=== PATIENT | male | born 1965 | race Caucasian/White ===

== ENCOUNTER → 2019-04-02 11:37 | Outpatient (CLI) | payer OTHER, SELFPAY ==
[2015-06-20 13:03] VITALS: BMI 40.2
[2019-04-02 14:05] LABS: Anion Gap 8 (5-15); BUN 14 mg/dL (7-18); BUN/Creat Ratio 14.2 RATIO (10-20); Calcium,Total 8.7 mg/dL (8.5-10.1); Chloride 106 mmol/L (98-107); Cholesterol 129 mg/dL (200); Creatinine, Serum 0.99 mg/dL (0.70-1.30); EST Glomerular Filtration Rate 84 mL/min (>60); Est Glom Filt Rate - Afr Amer 102 mL/min (>60); Glucose 87 mg/dL (74-106); High Density Lipoprotein 54 mg/dL; Potassium 4.4 mmol/L (3.5-5.1); Sodium Level 140 mmol/L (136-145); Triglycerides 54 mg/dL; Very Low Density Lipoprotein 11 mg/dL (5-40)
== END ==
PROVIDERS: Family Provider Family Medicine; PCP Family Medicine; Visit Provider Family Medicine
DX: I10 Essential (primary) hypertension (principal); E29.1 Testicular hypofunction
CPT/HCPCS: 36415; 80048; 80061; 84403

== ENCOUNTER → 2021-01-09 10:27 | Outpatient (CLI) | payer OTHER, SELFPAY ==
[2015-06-20 13:03] VITALS: BMI 40.2
[2021-01-09 12:45] LABS: Anion Gap 5 (5-15); BUN 16 mg/dL (7-18); BUN/Creat Ratio 15.8 RATIO (10-20); Calcium,Total 8.9 mg/dL (8.5-10.1); Chloride 105 mmol/L (98-107); Cholesterol 155 mg/dL (200); Creatinine, Serum 1.01 mg/dL (0.70-1.30); EST Glomerular Filtration Rate 82 mL/min (>60); Est Glom Filt Rate - Afr Amer 99 mL/min (>60); Glucose 100 mg/dL (74-106); High Density Lipoprotein 56 mg/dL; Potassium 4.3 mmol/L (3.5-5.1); Sodium Level 138 mmol/L (136-145); Triglycerides 76 mg/dL; Very Low Density Lipoprotein 15 mg/dL (5-40)
== END ==
PROVIDERS: PCP Family Medicine; Referring Provider Family Medicine; Visit Provider Family Medicine
DX: I10 Essential (primary) hypertension (principal)
CPT/HCPCS: 36415; 80048; 80061

== ENCOUNTER 2021-04-13 07:02 | Day surgery (SDC) | payer OTHER, SELFPAY ==
[2015-06-20 13:03] VITALS: BMI 40.2
[2021-04-13] VITALS (8 sets, daily range): BP systolic 121–148; BP diastolic 68–89; PULSE 74–86; RESP 16; TEMP 36.1–36.4; O2SAT 92–97; BMI 39.4
[2021-04-13] MEDS: Lactated Ringers 1,000 ML 100 ML IV (07:25)
--- NOTE | 2021-04-13 07:43 | HP.PCM_ITS ---
HPI - General HPI Narrative KODAK VELASQUEZ, is a 56 M who presents for a screening colonoscopy. Patient never had a previous colonoscopy. Patient denies any family history of colon cancer. Patient denies any chronic abdominal pain/nausea/vomiting/reflux. Patient has bowel moods daily denies any blood. [facility] Medical History (Updated 04/13/21 @ 07:[address] Eli Berger MD) History of kidney stones Hyperlipemia Hypertension Non-smoker Seasonal allergies Wears glasses Home Medications atenolol 50 mg PO QHS 08/25/13 [History Last Taken 08/24/13] atorvastatin 40 mg PO QHS 08/25/13 [History Last Taken 08/24/13] fluticasone propionate 2 spray NASAL DAILY 08/25/13 [History Last Taken 08/25/13] loratadine-pseudoephedrine [Claritin-D 24 Hr] 1 tab PO DAILY 08/25/13 [History Last Taken 08/25/13] xdbmozyr-frd-QB-lycopen-lutein [Centrum Silver Tablet] 1 ea PO DAILY 08/25/13 [History Last Taken 08/25/13] aspirin 325 mg PO DAILY 04/09/21 [History Last Taken Unknown] lisinopril 5 mg PO DAILY 04/09/21 [History Last Taken Unknown] Allergy/AdvReac Type Severity Reaction Status Date / Time No Known Allergies Allergy Verified 04/13/21 07:27 Surgical History (Updated 04/09/21 @ 09:24 by Herminia Kuhn) History of arthroscopy of knee History of cardiac catheterization History of myringotomy History of tonsillectomy and adenoidectomy Social History Smoking Status: Never smoker Past Medical/Surgical History Planned Operation Planned Operative Procedure/s: colonscopy Previous Hospitalizations/Surgeries HX Hospitalizations: No Any Problems With Anesthesia: No You/Your Family Experience Fever (Hyperthermia) With Anes: No Cholinesterase deficiency: No Cardiovascular Hx Hypertension: Yes Hx Cardiac Catheterization: Yes (2000) What facility was last heart cath performed: [facility] [place] Date of last Heart Cath: abt 2000 Respiratory Hx Chronic Obstructive Pulmonary Disease (COPD): No Hx Asthma: No Hx Emphysema: No Hx Sleep Apnea: No Hx Respiratory Tract Infection/Cold (presently): No Do You Snore Loudly (louder than talking or can be heard): No Do You Often Feel Tired/ Fatigued/ Sleepy Dring Daytime?: No Has Anyone Observed You Stop Breathing During Sleep?: No Result (for STOP score): Negative Smoking Status: Never smoker Neurological Does patient have nerve stimulator: No Allergies No Known Allergies Allergy (Verified 04/13/21 07:27) Discharge Is Pt Admitted From a Fdc, or a Half-Way: No Who Could Help: After D/C, Where Do you Plan to Go: Return Home Vital Signs Vital Signs Vital Signs: Weight Body Mass Index (BMI) 40.2 Physical Exam Const alert, oriented x3 and no apparent distress HEENT normocephalic and head/scalp atraumatic Resp normal respiratory effort Cardio regular rate GI soft to palpation and non-tender; Negative for non-distended Palpation: Negative for guarding Extremity no clubbing, cyanosis or edema Neuro CN's II-XII intact bilaterally Psych mental status grossly normal Assessment & Plan Assessment/Plan (1) Screening for colon cancer: Procedure Criteria Type of Procedure Procedure Type: Elective Elective Risks - COVID COVID Risk Discussion: The surgeon/proceduralist and patient have discussed in detail the risk of exposure to and/or potential harm posed by the COVID-19 virus with having a surgery/procedure at this time versus the risk of delaying the surgery/procedure. It is not possible to know either the risk of delaying the surgery or procedure or chance of getting an infection with perfect accuracy, but a joint decision was made between the patient and the surgeon/proceduralist to proceed at this time with the scheduled surgery/procedure as indicated on the consent form. Surgery Risks - Colonoscopy Risks Include but are not Limited To: Risks include but are not limited to: Bleeding, perforation requiring further surgery, inability to complete colonoscopy requiring barium enema.
--- NOTE | 2021-04-14 13:08 | OP.CCLET_ITS ---
04/14/2021 Wing Calderón MD [address] [place] [address] Re : Colonoscopy procedure for [facility] Dear Dr. Calderón This procedure was performed on Tuesday, April 13, 2021. My impressions and recommendations are as follows: Impressions : - Hemorrhoids found on perianal exam. - Diverticulosis in the sigmoid colon. - The examination was otherwise normal on direct and retroflexion views. - No specimens collected. Recommendations : - Discharge patient to home. - High fiber diet. - Continue present medications. - Repeat colonoscopy in 10 years for screening purposes. My findings are described in the full procedure note, which is enclosed. If I can be of further assistance, please feel free to contact me at Doctor phone number(s): , Work: . Sincerely, MD Eli Chapman MD 04/13/2021 8:42:22 AM This report has been signed electronically.
--- NOTE | 2021-04-14 13:08 | OP.COLON_ITS ---
Patient Name: Jm May Procedure Date: 04/13/2021 7:40 AM Date of : 1965 Age: 56 Procedure: Colonoscopy Indications: Screening for colorectal malignant neoplasm Providers: Eli Berger MD Medicines: Monitored Anesthesia Care Patient Profile: This is a 56 year old male. Last Colonoscopy: none. The patient's first colonoscopy is today. Complications: No immediate complications. Procedure: Pre-Anesthesia Assessment: - Prior to the procedure, a History and Physical was performed, and patient medications and allergies were reviewed. The patient's tolerance of previous anesthesia was also reviewed. The risks and benefits of the procedure and the sedation options and risks were discussed with the patient. All questions were answered, and informed consent was obtained. Prior Anticoagulants: The patient has taken no previous anticoagulant or antiplatelet agents. ASA Grade Assessment: Per anesthesia. After reviewing the risks and benefits, the patient was deemed in satisfactory condition to undergo the procedure. After I obtained informed consent, the scope was passed under direct vision. Throughout the procedure, the patient's blood pressure, pulse, and oxygen saturations were monitored continuously. The Colonoscope was introduced through the anus and advanced to the cecum, identified by the appendiceal orifice, ileocecal valve and palpation. The colonoscopy was performed without difficulty. The patient tolerated the procedure well. The quality of the bowel preparation was good. Scope In: 8:13:29 AM Scope Withdrawal Time 0 hours 12 minutes 52 seconds Scope Out: 8:33:52 AM Total Procedure Duration Time 0 hours 20 minutes 23 seconds Findings: Hemorrhoids were found on perianal exam. Multiple small-mouthed diverticula were found in the sigmoid colon. The exam was otherwise without abnormality on direct and retroflexion views. Impression: - Hemorrhoids found on perianal exam. - Diverticulosis in the sigmoid colon. - The examination was otherwise normal on direct and retroflexion views. - No specimens collected. Recommendation: - Discharge patient to home. - High fiber diet. - Continue present medications. - Repeat colonoscopy in 10 years for screening purposes. Procedure Code(s): --- Professional --- G0121, PT, Colorectal cancer screening; colonoscopy on individual not meeting criteria for high risk Diagnosis Code(s): --- Professional --- Z12.11, Encounter for screening for malignant neoplasm of colon K64.9, Unspecified hemorrhoids K57.30, Diverticulosis of large intestine without perforation or abscess without bleeding CPT copyright 2017 [employer]. All rights reserved. The codes documented in this report are preliminary and upon remote medical coder review may be revised to meet current compliance requirements. MD Eli Chapman MD 04/13/2021 8:42:22 AM This report has been signed electronically. Number of Addenda: 0 Note Initiated On: 04/13/2021 7:40 AM
== END 2021-04-13 09:37 | disposition home or self-care (01) ==
LOC: EN 07:06 → AC 07:08
PROVIDERS: PCP Family Medicine; Referring Provider Family Medicine; Visit Provider Surgery
PROC: 0DJD8ZZ Inspection of Lower Intestinal Tract, Via Natural or Artificial Opening Endoscopic (ICD-10-PCS; CPT 45378; principal; 2021-04-13 07:55)
DX: Z12.11 Encounter for screening for malignant neoplasm of colon (principal); K57.30 Diverticulosis of large intestine without perforation or abscess without bleeding; K64.9 Unspecified hemorrhoids; Z79.82 Long term (current) use of aspirin; Z87.442 Personal history of urinary calculi; E78.5 Hyperlipidemia, unspecified; I10 Essential (primary) hypertension
CPT/HCPCS: 45378; J7120; J2405

== ENCOUNTER 2021-12-17 16:32 | Outpatient (CLI) | payer OTHER, SELFPAY ==
--- NOTE | 2021-12-17 16:35 | RAD_ITS ---
STUDY: X-RAY CHEST REASON FOR EXAM: Male, 56 years old. ACUTE BRONCHITIS TECHNIQUE: PA and lateral views of the chest. COMPARISON: 08/06/2016 FINDINGS: The lungs are clear and expanded. There is no demonstrated pleural abnormality. Normal size heart. Normal mediastinum and kylee. Normal visualized pulmonary arteries. Normal visualized aortic arch and descending thoracic aorta. Normal visualized thoracic spine. Normal visualized ribs, clavicles, and shoulders. There is no demonstrated abnormality of the visualized soft tissue structures of the upper abdomen. RAD/Chest PA and Lateral IMPRESSION: No acute cardiopulmonary process. Electronically Signed: Oliverio Valente MD ([place]) at 7:40 EDT ,
== END 2021-12-17 23:59 | disposition home or self-care (01) ==
LOC: MTRAD 16:34
PROVIDERS: PCP Family Medicine; Referring Provider Family Medicine; Visit Provider Family Medicine
DX: J20.9 Acute bronchitis, unspecified (principal)
CPT/HCPCS: 71046

== ENCOUNTER → 2022-01-13 | Outpatient (CLI) | payer OTHER, SELFPAY ==
[2022-01-13 13:00] LABS: Anion Gap 4 (5-15); BUN 17 mg/dL (7-18); BUN/Creat Ratio 17.6 RATIO (10-20); Chloride 108 mmol/L (98-107); Cholesterol 151 mg/dL (200); Creatinine, Serum 0.97 mg/dL (0.70-1.30); EST Glomerular Filtration Rate 86 mL/min (>60); Est Glom Filt Rate - Afr Amer 104 mL/min (>60); Glucose 101 mg/dL (74-106); High Density Lipoprotein 51 mg/dL; PSA,Total - Annual Screen 0.54 ng/mL (0.00-4.00); Potassium 4.3 mmol/L (3.5-5.1); Sodium Level 139 mmol/L (136-145); Triglycerides 69 mg/dL; Very Low Density Lipoprotein 14 mg/dL (5-40)
[2022-01-13 13:20] LABS: Vitamin D,25 Hydroxy 31.4 ng/mL
== END | disposition home or self-care (01) ==
LOC: MFPLAB 10:36
PROVIDERS: PCP Family Medicine; Referring Provider Family Medicine; Visit Provider Family Medicine
DX: Z00.00 Encounter for general adult medical examination without abnormal findings (principal)
CPT/HCPCS: 36415; 80048; 80061; 82306; 84153; G0103

== ENCOUNTER → 2024-10-12 | Outpatient (CLI) | payer OTHER, SELFPAY ==
[2024-10-12 17:03] LABS: Anion Gap 7 (5-15); BUN 20 mg/dL (7-18); BUN/Creat Ratio 22.7 RATIO (10-20); Calcium,Total 9.3 mg/dL (8.5-10.1); Chloride 106 mmol/L (98-107); Cholesterol 131 mg/dL (200); Creatinine, Serum 0.88 mg/dL (0.70-1.30); EST Glomerular Filtration Rate 94 mL/min (>60); Est Glom Filt Rate - Afr Amer 114 mL/min (>60); Glucose 96 mg/dL (74-106); High Density Lipoprotein 51 mg/dL; PSA,Total - Annual Screen 0.43 ng/mL (0.00-4.00); Potassium 4.3 mmol/L (3.5-5.1); Sodium Level 139 mmol/L (136-145); Triglycerides 63 mg/dL; Very Low Density Lipoprotein 13 mg/dL (5-40)
== END | disposition home or self-care (01) ==
LOC: MFPLAB 11:50
PROVIDERS: PCP Family Medicine; Referring Provider Family Medicine; Visit Provider Family Medicine
DX: Z00.00 Encounter for general adult medical examination without abnormal findings (principal); Z12.5 Encounter for screening for malignant neoplasm of prostate; I10 Essential (primary) hypertension
CPT/HCPCS: 36415; 80048; 80061; 84153; G0103

== ENCOUNTER 2025-01-04 05:43 | Inpatient (IN) | payer OTHER, SELFPAY ==
[2025-01-04] VITALS (46 sets, daily range): BP systolic 72–154; BP diastolic 43–123; PULSE 71–124; RESP 16–43; TEMP -17.7–38.3; O2SAT 90–100; BMI 45.6; BMI 41.1
[2025-01-04] MEDS: Etomidate 20 MG/10 ML Vial IV (05:48)
[2025-01-04] MEDS: Rocuronium Bromide 50 MG/5 ML Vial 100 MG IV (05:48)
--- NOTE | 2025-01-04 05:52 | RAD_ITS ---
PROCEDURE: CHEST 1 VIEW (PORTABLE) 01/04/2025 REASON FOR EXAM: INTUBATION TECHNIQUE: Frontal view of the chest. COMPARISON: None available FINDINGS: Endotracheal tube 4 cm above the shanice. Nasogastric tube and side port crosses the diaphragm within the proximal stomach with tip directed into the fundus. Percutaneous pacing/defibrillator pad and overlapping wires. Bilateral gwfuv-tctywtv-uvbx-left patchy perihilar upper zone predominant ill-defined opacities may represent infiltrate or unusual pulmonary edema not excluded, clinically correlate. Suggestion of possible prominence of the main pulmonary artery. Cardiac silhouette appears within limits for size. RAD/Chest 1 View (Portable) IMPRESSION: Endotracheal tube 4 cm above the shanice. Nasogastric tube and side port crosses the diaphragm within the proximal stomac h with tip directed into the fundus. Percutaneous pacing/defibrillator pad and overlapping wires. Bilateral dqkcc-hdtrnjc-bgkt-left patchy perihilar upper zone predominant ill-d efined opacities may represent infiltrate or unusual pulmonary edema not excluded, clinically correlate. Reading Location: [id number]
--- NOTE | 2025-01-04 05:56 | CT_ITS ---
PROCEDURE: BRAIN/HEAD WITHOUT CONTRAST 01/04/2025 REASON FOR EXAM: S/P CARDIAC ARREST TECHNIQUE: Head CT without intravenous contrast. Coronal and Sagittal reconstruction series were provided. One or more dose reduction techniques were used (e.g., Automated exposure control, adjustment of the mA and/or kV according to patient size, use of iterative reconstruction technique. RADIATION DOSE SUMMARY: CTDlvol: 16 mGy DLP: 562 MGycm COMPARISON: None. FINDINGS: There is no intracranial hemorrhage, mass effect or midline shift. No abnormal extra-axial fluid collections are present. Chao-white matter differentiation remains although slightly less conspicuous the ventricles and sulci are somewhat diminutive in size. The calvarium is intact. Visualized paranasal sinuses are unremarkable. The mastoids are well aerated. CT/Brain/Head without Contrast IMPRESSION: As above. Cerebral edema to be ruled out clinically. MRI may be performed if clinically indicated. No acute intracranial hemorrhage, mass effect or midline shift. Reading Location: [id number]
--- NOTE | 2025-01-04 05:56 | CT_ITS ---
PROCEDURE: CTA CHEST W/WO CONTRAST 01/04/2025 REASON FOR EXAM: S/P CARDIAC ARREST TECHNIQUE: CTA axial imaging of the chest with intravenous contrast. Coronal and Sagittal reconstruction series were provided. 3D, 3D post processing, 3D reconstructions, Maximum intensity projection (MIPs) Volume rendering and Shaded surface rendering was provided. PATIENT PREPARATION: Per protocol CONTRAST: Yes VOLUME: 100 mL One or more dose reduction techniques were used (e.g., Automated exposure control, adjustment of the mA and/or kV according to patient size, use of iterative reconstruction technique). RADIATION DOSE SUMMARY: CTDlvol: 16 mGy DLP: 562 mGycm . COMPARISON: None. FINDINGS: Examination is limited due to motion and streak artifacts. Endotracheal tube and enteric tubes are present. There is no pleural or pericardial effusion. The heart is normal in size. The pulmonary arteries are normal in size and caliber. There is no evidence pulmonary arterial embolism. There is no mediastinal hematoma. There is no evidence of thoracic aortic dissection. Diffuse bilateral conglomerate alveolar opacities are present particularly within the posterior portions of the lungs. Differential diagnosis is below. There is no pneumothorax. Acute fracture seen within the right anterior 4th and 5th ribs best seen on image 133/265 and image 97/265. There are several enhancing nodules seen within the thyroid particularly on the left side. Correlate with ultrasound. CT/CTA Chest W/WO Contrast IMPRESSION: Large confluent alveolar opacities within the posterior portions of the lungs. Differential possibility release includes, but not limited to diffuse alveolar hemorrhage, large aspirations, large infectious or inflammatory process. Follow-up until resolution is recommended. No evidence of pulmonary embolism. No evidence of aortic dissection within the visualized portion of the chest. Right anterior 4th and 5th rib fractures presumably due to CPR. Correlate clin ically Bilateral thyroid nodules. Correlate with dedicated ultrasound. Other findings as above. Reading Location: [id number]
[2025-01-04] MEDS: Amiodarone 360 MG in Dextrose 5% Viaflo Bag 192.8 ML 33.3 MG CONT INF (06:11)
[2025-01-04] MEDS: Propofol 10MG/Ml 1,000 MG/100 ML Bottle 8.4 MG CONT INF (06:13)
[2025-01-04] MEDS: 0.9% Normal Saline (1000mL) 1,000 ML 1000 ML IV (06:14)
[2025-01-04 06:17] LABS: Absolute Lymphocyte Count 9.87 X10^3/uL (0.83-4.51); Absolute Neutrophil Count 3.3 X10^3/uL (2.0-7.7); Basophil# 0.15 X10^3/uL; Eosinophils% 2.7 % (0-5); Hematocrit 46.9 % (40-54); Hemoglobin 13.5 g/dL (13.0-16.5); Lymphocyte # 9.87 X10^3/ul (0.83-4.51); Lymphocyte % 66.5 % (19-41); Mean Corp Hgb Conc 28.8 g/dL (32-36); Mean Corpuscular Hgb 24.7 pg (27.0-32.0); Mean Corpuscular Volume 85.9 fL (80-94); Mean Platelet Vol. 10.7 fl (6.2-12.0); Monocyte# 0.96 X10^3/uL; Monocyte% 6.5 % (0-10); NRBC Flagged by Analyzer 0 % (0-5); Neutrophil # 3.26 X10^3/uL (2.7-7.7); Neutrophil % 21.9 % (47-70); POSITIVE DIFFERENTIAL YES; Platelet Count 335 K/mm3 (150-450); RBC Distribution Width CV 16.5 % (11.6-14.6); RBC Distribution Width SD 51.5 fl (35.1-43.9); Red Blood Count 5.46 M/mm3 (4.6-6.2); White Blood Count 14.9 K/mm3 (4.4-11.0)
[2025-01-04 06:18] LABS: Allen Test Positive; Base Excess -13 mmol/L (-2 to +2); Bicarbonate 17.8 mmol/L (22-26); Blood Gas Specimen Type ART; Mode AC; O2 Delivery Device Adult Vent; PEEP 10; PO2 83 mmHG (75-100); RR 16; SITE R Radial; SO2 89 % (95-99); Total Carbon Dioxide 20 mmol/L; pH 7.05 (7.35-7.45)
--- NOTE | 2025-01-04 06:31 | EX.ED.CRITCA ---
HPI History of Present Illness Chief Complaint: CPR Narrative Narrative: Chief complaint and HPI: V-fib status post ROSC. History taken by EMS, medical record, . 59-year-old male with past medical history of HTN, HLD, and obesity presents for evaluation of V-fib status post ROSC. Per EMS, found the patient unresponsive this morning and called 911. On EMS arrival, PD was performing CPR. Patient was found to be in ventricular fibrillation per EMS. He received 2 rounds of epinephrine, 300 mg amiodarone, and 5 defibrillation until ROSC was obtained. I gel was in place and patient was moving all extremities. On presentation, patient is on nonrebreather and moving extremities. Tachypneic, tachycardic, and hypertensive. Review of systems: See HPI Medications: As listed on the chart Allergies: As listed on the chart PFSH: Per chart Vital signs: As listed on the chart. Reviewed. Physical exam: Head: Normocephalic, atraumatic Eyes: Eyes closed, no sclera icterus, conjunctiva clear, PERRL ENT: Dry mucous membranes Neck: Trachea midline CV: Tachycardic, regular rhythm, no murmurs, no peripheral edema Resp: Lungs diminished in the bilateral bases, no wheezing, tachypneic, on nonrebreather GI: Obese, abd soft, non-distended, does not appear tender Musc: Moving all extremities, no deformity Skin: Warm, diaphoretic Neuro: Eyes closed, nonverbal, moving all extremities but not following commands [facility] Medical History Seasonal allergies Wears glasses History of kidney stones Hyperlipemia Non-smoker Hypertension Home Medications ?Medication ?Instructions ?Recorded ?Last Taken ?Type atenolol 50 mg tablet 50 mg PO QHS 08/25/13 08/24/13 History atorvastatin 40 mg tablet 20 mg PO QHS 08/25/13 08/24/13 History fluticasone propionate 50 2 spray DAILY 08/25/13 08/25/13 History mcg/actuation nasal spray,suspension loratadine-pseudoephedrine ER 10 1 tab PO DAILY 08/25/13 08/25/13 History mg-240 mg tablet,extended [id number] (Loratadine-D) [id number] acid 0.4 1 ea PO DAILY 08/25/13 08/25/13 History mg-lycopene 300 mcg-lutein 250 mcg tablet (Centrum Silver) aspirin 325 mg tablet 325 mg PO DAILY 04/09/21 Unknown History lisinopril 5 mg tablet 5 mg PO DAILY bp 04/09/21 Unknown History ondansetron HCl 4 mg tablet 4 mg PO TID 01/04/25 Unknown History Allergy/AdvReac Type Severity Reaction Status Date / Time No Known Allergies Allergy Verified 01/04/25 06:48 Surgical History History of cardiac catheterization History of myringotomy History of tonsillectomy and adenoidectomy History of arthroscopy of knee Social History Smoking Status: Never smoker EXAM Physical Exam Const Vital Signs: 01/04/25 05:44 01/04/25 05:50 01/04/25 06:11 Temperature 0 F L 96.2 F L Temperature Source Axillary Core Pulse Rate 124 H 98 109 H Respiratory Rate 37 H 16 43 H Respiratory Effort Respiratory Depth Respiratory Pattern Blood Pressure 137/123 H 143/101 H 151/99 H Blood Pressure Mean 127 115 116 Blood Pressure Source Monitor Blood Pressure Position Semi-Fowlers Blood Pressure Location Left Arm Pulse Ox 90 98 91 Oxygen Delivery Method Non-Rebreather Mechanical Ventilator Mechanical Ventilator 01/04/25 06:14 01/04/25 06:44 01/04/25 06:47 Temperature Temperature Source Pulse Rate 98 98 98 Respiratory Rate 16 16 16 Respiratory Effort Respiratory Depth Respiratory Pattern Normal Blood Pressure 149/107 H 143/101 H Blood Pressure Mean 121 115 Blood Pressure Source Blood Pressure Position Blood Pressure Location Pulse Ox 96 96 96 Oxygen Delivery Method Mechanical Ventilator Mechanical Ventilator 01/04/25 06:48 01/04/25 07:00 01/04/25 07:05 Temperature Temperature Source Pulse Rate 94 Respiratory Rate 16 Respiratory Effort Mechanically Ventilated Mechanically Ventilated Respiratory Depth Normal Respiratory Pattern Normal Normal Blood Pressure 143/101 H Blood Pressure Mean 115 Blood Pressure Source Blood Pressure Position Blood Pressure Location Pulse Ox 97 Oxygen Delivery Method Mechanical Ventilator Mechanical Ventilator 01/04/25 07:35 01/04/25 07:59 01/04/25 08:08 Temperature Temperature Source Pulse Rate 94 91 91 Respiratory Rate 19 H 16 17 Respiratory Effort Respiratory Depth Respiratory Pattern Normal Blood Pressure 129/91 H 119/92 H Blood Pressure Mean 103 101 Blood Pressure Source Blood Pressure Position Blood Pressure Location Pulse Ox 98 96 100 Oxygen Delivery Method Mechanical Ventilator MDM MDM MDM Narrative Medical decision making narrative: 59-year-old male with past medical history of HTN, HLD, and obesity presents for evaluation of V-fib status post ROSC. Per EMS, found the patient unresponsive this morning and called 911. Patient was found to be in ventricular fibrillation per EMS. He received 2 rounds of epinephrine, 300 mg amiodarone, and 5 defibrillation until ROSC was obtained. On presentation, patient is on nonrebreather and moving extremities but not following commands or opening eyes. Nonverbal.. Tachypneic, tachycardic, and hypertensive. Given respiratory status, mental status, and critical condition decision was to intubate the patient. Patient placed on ventilator with tidal volume 500, PEEP of 5, respiration 16, 100% oxygen. Patient's oxygen remained in the 80s until PEEP was increased to 10. EKG was immediately performed. EKG was personally reviewed interpreted by me, ED physician EKG shows sinus tachycardia. No ST elevation. No no acute ischemic changes. Heart rate 115. Not a STEMI. Differential diagnosis includes but is not limited to acute hypoxic respiratory failure, ventricular fibrillation, electrolyte abnormality, CODI, PE, ACS. Given that patient was found to be in ventricular fibrillation, patient was started on amiodarone drip. Extensive laboratory workup ordered including CT head and CTA chest. Hypothermic protocol will be started. Patient's shortly arrived. She states that the patient frequently snores. She states that she heard him snoring and gurgling. She states she had a multiple times in which she realized he was minimally responsive. She states she called 911 and was told to start CPR. She started in the bed and she could not move the patient. She states she felt that the patient was breathing the entire time. She denies any recent fever, chills, shortness of breath, chest pain, abdominal pain, nausea, vomiting, dysuria. Chest x-ray was personally reviewed and interpreted by me, ED physician. ET tube in correct placement. As well as NG tube. Bilateral infiltrates. ABG shows metabolic and respiratory acidosis. CBC with leukocytosis of 14.9. No anemia. Platelets unremarkable. INR unremarkable. BMP shows metabolic acidosis with a bicarb of 16.3 and anion gap of 22. Patient's glucose is 261. No history of diabetes. Will add on beta hydroxybutyrate. No CODI. Magnesium level elevated at 2.8. Mild transaminitis likely secondary to cardiac arrest. Troponin unremarkable. BNP unremarkable. CT head without any acute intracranial abnormality. CTA chest negative for PE and aortic dissection. Patient has right anterior 4th and 5th rib fractures. Bilateral thyroid nodules. Will need to be further worked up outpatient. Large confluent areolar opacities within the posterior portion of the lungs. Differential includes alveolar hemorrhage, large aspiration, inflammatory infectious process. Given this finding, blood cultures added. Vancomycin and Zosyn ordered. did not endorse any infectious type symptoms However will cover empirically. No pleural or pericardial effusions. At this point in time, no clear etiology for patient's cardiopulmonary arrest however suspect it is likely respiratory in nature. Cardiology was consulted and patient was discussed with Dr. Pierce. No further recommendations. COVID, flu, RSV negative. Lactic acid 7.1 this is multifactorial. However given concern for possible pneumonia or infectious etiology, patient will receive 30 cc/kg bolus. Will use ideal body weight given concern for overload which is about 70 kg. Patient already received 1 L fluid. Therefore will order another 1.5 L in total he will get 2.5 L. Beta-hydroxybutyrate negative. UA negative for UTI but positive for glucose. Repeat ABG on vent settings of respiratory rate 18, tidal volume 500, PEEP of 10, 100% oxygen shows improvement in acidosis. Patient will warrant admission to the ICU. I spoke with the hospitalist service who accepted admission. was updated of all the results and the plan. Endotracheal Intubation Indication: Respiratory distress Consent: Emergent Procedure: The patient was on a nuclear monitoring technician including continuous pulse oximetry. Rapid Sequence Intubation was conducted. The patient received 20 mg of Etomidate for induction and 100 mg of Rocuronium for adequate paralysis. Cricoid pressure was maintained from the time the induction agent was given to the time of cuff balloon inflation. Using a glide laryngoscope and a size 8 oh endotracheal tube with stylet, the patient was intubated on the first attempt. The stylet was removed, and the cuff balloon was inflated. Appropriate endotracheal tube position was confirmed by direct visualization of vocal cord passage, fogging of the tube, CO2 colorimetric indicator and symmetric breath sounds. The tube was secured at 22 cm at the lips. 45 minutes of critical care time utilized in managing the patient. This is due to high probability of and deterioration of the patient based on the patient's condition and excludes any separately billable procedures. Impression: 1. Cardiopulmonary arrest, status post ROSC 2. Reported ventricular fibrillation 3. Acute hypoxic and hypercapnic respiratory failure, status post intubation 4. Metabolic acidosis with lactic acidosis, multifactorial 5. Mild transaminitis 6. Hyperglycemia 7. Right anterior 4th and 5th rib fractures 8. Bilateral thyroid nodules, need further worked up 9. Bilateral areolar opacities, unclear etiology, concern for possible pneumonia/sepsis Lab Data Labs: Laboratory Results - last 24 hr 01/04/25 01/04/25 01/04/25 05:45 05:47 06:15 WBC 14.9 H RBC 5.46 Hgb 13.5 Hct 46.9 MCV 85.9 MCH 24.7 L MCHC 28.8 L RDW Std Deviation 51.5 H RDW Coeff of Nash 16.5 H Plt Count 335 MPV 10.7 Immature Gran % (Auto) 1.400 H Neut % (Auto) 21.9 L Lymph % (Auto) 66.5 H [place] % (Auto) 6.5 Eos % (Auto) 2.7 Baso % (Auto) 1.0 Absolute Neuts (auto) 3.3 Absolute Lymphs (auto) 9.87 H Nucleated RBC % 0 Diff Path Review January foll PT 15.1 H INR 1.2 APTT 28.4 Sodium 140 Potassium 3.7 Chloride 102 Carbon Dioxide 16.3 L Anion Gap 22 H BUN 22 H Creatinine 1.19 Estim Creat Clear Calc 95.34 Est GFR (MDRD) Non-Af 71 BUN/Creatinine Ratio 18.8 Glucose 261 H Lactic Acid 7.1 H* Calcium 8.9 Magnesium 2.8 H Total Bilirubin 0.27 Direct Bilirubin 0.12 AST 75 H ALT 81 H Alkaline Phosphatase 96 Total Creatine Kinase 250 H Troponin T High Sens 12 NT pro BNP II 100 Total Protein 6.7 Albumin 3.7 Globulin 3.0 Triglycerides 128 b-Hydroxybutyric mmol/L 0.1 Urine Color Urine Clarity Urine pH Ur Specific [place] U Specif Grav (Refrac) Urine Protein Urine Glucose (UA) Urine Ketones Urine Occult Blood Urine Nitrite Urine Bilirubin Urine Urobilinogen Ur Leukocyte Esterase Urine RBC Urine WBC Ur Squamous Epith Cells Urine Bacteria Urine Mucus 01/04/25 01/04/25 01/04/25 06:55 06:55 06:55 WBC RBC Hgb Hct MCV MCH MCHC RDW Std Deviation RDW Coeff of [place] Plt Count MPV Immature Gran % (Auto) Neut % (Auto) Lymph % (Auto) [place] % (Auto) Eos % (Auto) Baso % (Auto) Absolute Neuts (auto) Absolute Lymphs (auto) Nucleated RBC % Diff Path Review PT INR APTT Sodium Potassium Chloride Carbon Dioxide Anion Gap BUN Creatinine Estim Creat Clear Calc Est GFR (MDRD) Non-Af BUN/Creatinine Ratio Glucose Lactic Acid Calcium Magnesium Total Bilirubin Direct Bilirubin AST ALT Alkaline Phosphatase Total Creatine Kinase Troponin T High Sens NT pro BNP II Total Protein Albumin Globulin Triglycerides b-Hydroxybutyric mmol/L Urine Color Yellow Cancelled Urine Clarity Sl. Cloudy Cancelled Urine pH 7.0 Ur Specific [place] U Specif Grav (Refrac) Urine Protein Urine Glucose (UA) Urine Ketones Urine Occult Blood Urine Nitrite Urine Bilirubin Urine Urobilinogen Ur Leukocyte Esterase Urine RBC Urine WBC Ur Squamous Epith Cells Urine Bacteria Urine Mucus 01/04/25 01/04/25 01/04/25 06:55 06:55 06:55 WBC RBC Hgb Hct MCV MCH MCHC RDW Std Deviation RDW Coeff of [place] Plt Count MPV Immature Gran % (Auto) Neut % (Auto) Lymph % (Auto) [place] % (Auto) Eos % (Auto) Baso % (Auto) Absolute Neuts (auto) Absolute Lymphs (auto) Nucleated RBC % Diff Path Review PT INR APTT Sodium Potassium Chloride Carbon Dioxide Anion Gap BUN Creatinine Estim Creat Clear Calc Est GFR (MDRD) Non-Af BUN/Creatinine Ratio Glucose Lactic Acid Calcium Magnesium Total Bilirubin Direct Bilirubin AST ALT Alkaline Phosphatase Total Creatine Kinase Troponin T High Sens NT pro BNP II Total Protein Albumin Globulin Triglycerides b-Hydroxybutyric mmol/L Urine Color Urine Clarity Urine pH Cancelled Ur Specific [place] 1.010 Cancelled U Specif Grav (Refrac) Cancelled Urine Protein 500 H Cancelled Urine Glucose (UA) 250 H Urine Ketones Urine Occult Blood Urine Nitrite Urine Bilirubin Urine Urobilinogen Ur Leukocyte Esterase Urine RBC Urine WBC Ur Squamous Epith Cells Urine Bacteria Urine Mucus 01/04/25 01/04/25 01/04/25 06:55 06:55 06:55 WBC RBC Hgb Hct MCV MCH MCHC RDW Std Deviation RDW Coeff of [place] Plt Count MPV Immature Gran % (Auto) Neut % (Auto) Lymph % (Auto) [place] % (Auto) Eos % (Auto) Baso % (Auto) Absolute Neuts (auto) Absolute Lymphs (auto) Nucleated RBC % Diff Path Review PT INR APTT Sodium Potassium Chloride Carbon Dioxide Anion Gap BUN Creatinine Estim Creat Clear Calc Est GFR (MDRD) Non-Af BUN/Creatinine Ratio Glucose Lactic Acid Calcium Magnesium Total Bilirubin Direct Bilirubin AST ALT Alkaline Phosphatase Total Creatine Kinase Troponin T High Sens NT pro BNP II Total Protein Albumin Globulin Triglycerides b-Hydroxybutyric mmol/L Urine Color Urine Clarity Urine pH Ur Specific [place] U Specif Grav (Refrac) Urine Protein Urine Glucose (UA) Cancelled Urine Ketones Negative Cancelled Urine Occult Blood 150 H Cancelled Urine Nitrite Negative Urine Bilirubin Urine Urobilinogen Ur Leukocyte Esterase Urine RBC Urine WBC Ur Squamous Epith Cells Urine Bacteria Urine Mucus 01/04/25 01/04/25 01/04/25 06:55 06:55 06:55 WBC RBC Hgb Hct MCV MCH MCHC RDW Std Deviation RDW Coeff of [place] Plt Count MPV Immature Gran % (Auto) Neut % (Auto) Lymph % (Auto) [place] % (Auto) Eos % (Auto) Baso % (Auto) Absolute Neuts (auto) Absolute Lymphs (auto) Nucleated RBC % Diff Path Review PT INR APTT Sodium Potassium Chloride Carbon Dioxide Anion Gap BUN Creatinine Estim Creat Clear Calc Est GFR (MDRD) Non-Af BUN/Creatinine Ratio Glucose Lactic Acid Calcium Magnesium Total Bilirubin Direct Bilirubin AST ALT Alkaline Phosphatase Total Creatine Kinase Troponin T High Sens NT pro BNP II Total Protein Albumin Globulin Triglycerides b-Hydroxybutyric mmol/L Urine Color Urine Clarity Urine pH Ur Specific [place] U Specif Grav (Refrac) Urine Protein Urine Glucose (UA) Urine Ketones Urine Occult Blood Urine Nitrite Cancelled Urine Bilirubin Negative Cancelled Urine Urobilinogen Normal Cancelled Ur Leukocyte Esterase Negative Urine RBC Urine WBC Ur Squamous Epith Cells Urine Bacteria Urine Mucus 01/04/25 06:55 WBC RBC Hgb Hct MCV MCH MCHC RDW Std Deviation RDW Coeff of [place] Plt Count MPV Immature Gran % (Auto) Neut % (Auto) Lymph % (Auto) [place] % (Auto) Eos % (Auto) Baso % (Auto) Absolute Neuts (auto) Absolute Lymphs (auto) Nucleated RBC % Diff Path Review PT INR APTT Sodium Potassium Chloride Carbon Dioxide Anion Gap BUN Creatinine Estim Creat Clear Calc Est GFR (MDRD) Non-Af BUN/Creatinine Ratio Glucose Lactic Acid Calcium Magnesium Total Bilirubin Direct Bilirubin AST ALT Alkaline Phosphatase Total Creatine Kinase Troponin T High Sens NT pro BNP II Total Protein Albumin Globulin Triglycerides b-Hydroxybutyric mmol/L Urine Color Urine Clarity Urine pH Ur Specific [place] U Specif Grav (Refrac) Urine Protein Urine Glucose (UA) Urine Ketones Urine Occult Blood Urine Nitrite Urine Bilirubin Urine Urobilinogen Ur Leukocyte Esterase Cancelled Urine RBC 5-10 SEEN Urine WBC 0 SEEN Ur Squamous Epith Cells 0-5 SEEN Urine Bacteria 2+ Urine Mucus 0 SEEN ABG Data ABG results: ABG 01/04/25 01/04/25 06:13 08:00 Specimen Type ART ART Sample Site R Radial L Radial pH 7.05 L* 7.24 L Bicarbonate Actual 17.8 L 23.7 Total CO2 20 25 Base Excess -13 L -4 L O2 Saturation 89 L 98 O2 % 100.0 100.0 ABG pCO2 65.0 H 55.8 H ABG pO2 83 122 H Driss Test Positive Positive Respiration Rate 16 18 O2 Delivery Device Adult Vent Adult Vent Vent Mode AC Not entered Tidal Volume 500.0 500.0 POC PEEP 10 10 Crit Call To/Read Back Yes Blood Gas Notified Whom Blood Gas Notified Time 06:14:59 Radiography Diagnostic Testing: Clinical Impression(s) from Imaging Studies Chest X-Ray 01/04/25 05:52 IMPRESSION: Endotracheal tube 4 cm above the shanice. Nasogastric tube and side port crosses the diaphragm within the proximal stomach with tip directed into the fundus. Percutaneous pacing/defibrillator pad and overlapping wires. Bilateral [id number]-[id number]-left patchy perihilar upper zone predominant ill-defined opacities may represent infiltrate or unusual pulmonary edema not excluded, clinically correlate. Reading Location: [id number] Brain CT 01/04/25 05:56 IMPRESSION: As above. Cerebral edema to be ruled out clinically. MRI may be performed if clinically indicated. No acute intracranial hemorrhage, mass effect or midline shift. Reading Location: [id number] Chest CTA 01/04/25 05:56 IMPRESSION: Large confluent alveolar opacities within the posterior portions of the lungs. Differential possibility release includes, but not limited to diffuse alveolar hemorrhage, large aspirations, large infectious or inflammatory process. Follow-up until resolution is recommended. No evidence of pulmonary embolism. No evidence of aortic dissection within the visualized portion of the chest. Right anterior 4th and 5th rib fractures presumably due to CPR. Correlate clinically Bilateral thyroid nodules. Correlate with dedicated ultrasound. Other findings as above. Reading Location: [facility] Discharge Plan Triage Chief Complaint: CPR ED Provider: Rao Correa Dx/Rx/DC Orders Prescriptions: No Action atorvastatin 40 MG tablet 20 mg PO QHS Loratadine-D 1 TABLET tablet 1 tab PO DAILY fluticasone propionate 1 SPRAY spray,suspension 2 spray NASAL DAILY atenolol 50 MG tablet 50 mg PO QHS Centrum Silver 1 EACH tablet 1 ea PO DAILY aspirin 325 mg Tablet 325 mg PO DAILY lisinopril 5 mg tablet 5 mg PO DAILY ondansetron HCl 4 mg tablet 4 mg PO TID Primary Care Provider: Wing Calderón Referrals: Wing Calderón MD [Primary Care Provider] - Print Language: Egyptian
[2025-01-04 06:33] LABS: International Normalized Ratio 1.2; Prothrombin Time (Protime)PT. 15.1 SECONDS (11.7-14.9)
[2025-01-04 06:34] LABS: Partial Thromboplast Time 28.4 Seconds (24.1-36.2)
[2025-01-04 06:40] LABS: Differential Indicated SCAN CRITERIA MET
[2025-01-04 06:50] LABS: Pro- Brain NATRIURETIC PEPTIDE 100 pg/mL (<=900)
[2025-01-04 07:08] LABS: Mucous, Urine 0 SEEN /hpf (<or=2+); White Blood Cells 0 SEEN /hpf (0-5)
[2025-01-04 07:10] LABS: AST(SGOT) 75 U/L (<=37); Alanine Aminotransfer ALT/SGPT 81 U/L (<=46); Albumin, Serum 3.7 g/dL (3.5-5.0); Alkaline Phosphatase 96 U/L (40-129); Anion Gap 22 (5-15); BUN 22 mg/dL (4-19); BUN/Creat Ratio 18.8 RATIO (10-20); Bilirubin, Direct 0.12 mg/dL (0.00-0.30); Calcium,Total 8.9 mg/dL (7.6-11.0); Carbon Dioxide 16.3 mmol/L (21.0-32.0); Chloride 102 mmol/L (98-108); Creatinine, Serum 1.19 mg/dL (0.70-1.20); EST Glomerular Filtration Rate 71 (>60); Estimated Creatinine Clearance 95.34 ml/min (50-250); Glucose 261 mg/dL (70-99); Potassium 3.7 mmol/L (3.3-5.1); Protein, Total 6.7 g/dL (5.9-8.4); Sodium Level 140 mmol/L (133-145); Total Bilirubin 0.27 mg/dL (0.00-1.30)
[2025-01-04 07:29] LABS: Magnesium 2.8 mg/dL (1.5-2.2); Troponin T High Sensitivity 12 ng/L (<=22)
[2025-01-04 07:51] LABS: Lactic Acid 7.1 mmol/L (0.0-2.0)
[2025-01-04 08:00] LABS: CPK Total, Creatine Kinase 250 U/L (24-195); Triglycerides 128 mg/dL
[2025-01-04 08:01] LABS: Color, Urine Yellow (Yellow); Glucose, Dipstick 250 mg/dl (Normal); Ketone-Dipstick Negative (Negative); Leukocyte Esterase-Dipstick Negative /ul (Negative); Nitrite-Dipstick Negative (Negative); Occult Blood-Urine 150 /ul (Negative); Protein-Dipstick 500 mg/dl (Negative); Urine Bilirubin Dipstick Negative (Negative); Urine Clarity Sl. Cloudy (Clear); Urine Urobilinogen Normal (Normal)
[2025-01-04 08:03] LABS: Allen Test Positive; Base Excess -4 mmol/L (-2 to +2); Bicarbonate 23.7 mmol/L (22-26); Blood Gas Specimen Type ART; Mode Not entered; O2 Delivery Device Adult Vent; PEEP 10; PO2 122 mmHG (75-100); RR 18; SITE L Radial; SO2 98 % (95-99); Total Carbon Dioxide 25 mmol/L; pCO2 55.8 mmHg (35-45); pH 7.24 (7.35-7.45)
[2025-01-04] MEDS: Piperacil/Tazobactam 4.5 GM in 0.9% Normal Saline (100mL MB+) 100 ML IV (08:06)
[2025-01-04 08:10] LABS: Bacteria 2+ /hpf (None Seen); Red Blood Cells-Urine 5-10 SEEN /hpf (0-5); Squamous Epithelial Cells - UA 0-5 SEEN /hpf (0-5)
[2025-01-04 08:15] LABS: BETA-HYDROXYBUTYRATE 0.1 mmol/L (0.0-0.3)
[2025-01-04] MEDS: 0.9% Normal Saline (1000mL) 1,000 ML 999 ML IV ×2 (08:25→09:57)
[2025-01-04 08:43] LABS: Troponin T High Sens 2 HR 136 ng/L (<=22)
--- NOTE | 2025-01-04 09:33 | ECHOCS_ITS ---
Reason For Study Reason For Study: Arrhythmia Procedure This was a 2D Doppler, Color Flow transthoracic echocardiogram. The study was technically difficult. Patient scanned supine on vent. Exam performed portable in ICU/CCU. Left Ventricle Normal size and thickness. Severe LV systolic dysfunction with generalized hypokinesis. Estimated LVEF 20 to 25%. Stage I diastolic dysfunction. Cannot exclude LV noncompaction. Right Ventricle Normal RV size. Atria The left and right atria are normal. Mitral Valve Trivial mitral valve insufficiency. Tricuspid Valve Mild tricuspid valve insufficiency. Right ventricular systolic pressure estimated to be 37 mmHg. Aortic Valve Trisinus/trileaflet aortic valve. Pulmonic Valve The pulmonic valve is not well visualized. Great Vessels Normal sized aortic root. Pericardium/Pleural No pericardial effusion. Medication Diluted definity 1.5ml given slow IV push to enhance endocardial definition. MMode/2D Measurements & Calculations LVIDd: 5.0 cm IVSd: 0.87 cm Ao root diam: 3.4 cm LVIDs: 4.3 cm LVPWd: 1.1 cm RVDd: 3.6 cm FS: 14.0 % LAV(MOD-bp): 24.6 ml LVAd ap4: 35.8 cm2 LVAd ap2: 34.1 cm2 LAV(MOD-bp) Indexed: 9.9 ml/m2 LVLd ap4: 8.0 cm LVLd ap2: 8.0 cm LAV(MOD-sp2): 19.4 ml EDV(MOD-sp4): 133.9 ml EDV(MOD-sp2): 116.9 ml LAV(MOD-sp4): 25.1 ml EDV(sp4-el): 136.2 ml EDV(sp2-el): 123.4 ml LVAs ap4: 28.7 cm2 LVAs ap2: 26.7 cm2 LVLs ap4: 7.3 cm LVLs ap2: 7.2 cm ESV(MOD-sp4): 92.8 ml ESV(MOD-sp2): 80.3 ml ESV(sp4-el): 96.1 ml ESV(sp2-el): 84.4 ml EF(MOD-sp4): 30.7 % EF(MOD-sp2): 31.3 % EF(sp4-el): 29.4 % SV(MOD-sp4): 41.1 ml SV(MOD-sp2): 36.5 ml SV(sp4-el): 40.0 ml SI(MOD-sp4): 16.6 ml/m2 SI(MOD-sp2): 14.7 ml/m2 LA A4 area: 11.9 cm2 LA dimension(2D): 3.0 cm RA A4 area: 13.7 cm2 Doppler Measurements & Calculations MV E max [place]: 28.5 cm/sec Lat Peak E' [place]: 5.6 cm/sec Med Peak E' [place]: 4.5 cm/sec MV A max [place]: 47.5 cm/sec E/E' lat: 5.1 E/E' med: 6.3 MV E/A: 0.60 PA V2 max: 84.5 cm/sec TR max [place]: 282.7 cm/sec TR max P.0 mmHg ECHO/Echo Complete W/ Contrast Interpretation Summary Severe LV systolic dysfunction with generalized hypokinesis. Estimated LVEF 20 to 25%. Stage I diastolic dysfunction. Cannot exclude LV noncompaction. Mild tricuspid valve insufficiency. Abnormal hepatic architecture. Consider ultrasound of the liver for further moses luation. The study was technically difficult. Ordering Physician: Torey Malhotra Referring Physician: Wing Calderón Performed By: Gosia Bland RDCS
[2025-01-04 09:52] LABS: Reflex Lactate? Y
[2025-01-04] MEDS: fentaNYL drip 100 ML 5 MCG CONT INF (10:07)
[2025-01-04] MEDS: 0.9% Normal Saline (1000mL) 1,000 ML 100 ML IV ×2 (10:44→21:03)
--- NOTE | 2025-01-04 10:44 | EX.PCM.CONCC ---
Assessment & Plan Assessment/Plan (1) Acute respiratory failure with hypoxia and hypercapnia: (2) Cardiac arrest with ventricular fibrillation: PLAN: Plan RECOMMENDATIONS: 1. Continue assist-control mode mechanical ventilation. Wean FiO2 and PEEP as tolerated. 2. Continue empiric antibiotics, while awaiting culture workup. 3. Propofol and fentanyl for sedation. 4. Continue appropriate ICU prophylaxis. 5. Echocardiogram is pending. 6. Cardiology following with tentative plans for catheterization today. IMPRESSIONS: 1. Acute combined respiratory failure status post V-fib cardiac arrest The patient presented to the hospital after being found unresponsive by his earlier this morning and was noted to be in V-fib cardiac arrest by EMS. ACLS was initiated with ROSC ultimately achieved. The patient, at the present time, is clinically stable. He will be continued on propofol and fentanyl, pending further evaluation by cardiology. Echocardiogram is pending. There are tentative plans to proceed with cardiac catheterization today. Once cardiac workup is complete, recommend initiating paired daily spontaneous awakening and breathing trials, to better assess underlying neurologic status. Appropriate ICU prophylaxis will be continued. If the patient remains ventilated over the weekend, tube feeding for nutritional support can be initiated. 2. History of hypertension/hyperlipidemia/obesity Complicates care, management, recovery and prognosis. Continue supportive measures as noted above. The patient has never previously been diagnosed with obstructive sleep apnea, according to his . TIME: 35 minutes of critical care time, independent of procedures, was spent addressing the patient's acute combined respiratory failure status post V-fib cardiac arrest, review of all data and collaboration with the care team. HPI Consult Data Date of Consult: 01/04/25 HPI Narrative Reason for Consultation: Acute respiratory failure status postcardiac arrest HPI Narrative: The patient is a 59-year-old male, with a history as outlined below, who presented to the emergency department via EMS on the morning of January 04 after being found unresponsive by his . The patient's indicated that she awoke this morning around 0500 hrs. and noted that the patient had agonal type respirations and was subsequently found to be unresponsive. After contacting 911, she did initiate CPR. On EMS arrival, the patient was noted to be in ventricular fibrillation. ACLS was initiated with epinephrine, amiodarone and 5 attempted defibrillation prior to ROSC. The patient is a non-smoker, according to his . He has never been evaluated for obstructive sleep apnea in the past. 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 She reported that he has a strong family history of cardiac disease. On presentation to the emergency department, an endotracheal tube was placed by the ED provider. The patient was noted to be afebrile and hemodynamically stable. Laboratory evaluation revealed a white blood cell count of 15,000. Initial arterial blood gas was notable for a pH of 7.05 with a pCO2 of 65 and PO2 of 83. Lactate was elevated at 7.1. Troponin was increased at 136. CT head revealed no acute intracranial findings. CTA chest showed no evidence for pulmonary embolism but did reveal dependent posterior alveolar opacities. Right 4th and 5th rib fractures were incidentally noted. The patient was ultimately placed on antimicrobials along with fentanyl and propofol for sedation. He was admitted to the medical intensive care unit for further management. [facility] Medical History (Updated 01/04/25 @ 11:[address] Shad Pierce MD) Seasonal allergies Wears glasses History of kidney stones Hyperlipemia Non-smoker Hypertension Home Medications ?Medication ?Instructions ?Recorded ?Last Taken ?Type atenolol 50 mg tablet 50 mg PO QHS 08/25/13 08/24/13 History atorvastatin 40 mg tablet 20 mg PO QHS 08/25/13 08/24/13 History fluticasone propionate 50 2 spray DAILY 08/25/13 08/25/13 History mcg/actuation nasal spray,suspension loratadine-pseudoephedrine ER 10 1 tab PO DAILY 08/25/13 08/25/13 History mg-240 mg tablet,extended bphbyfq27te (Loratadine-D) dtfgtbus-tbr-qsaxl acid 0.4 1 ea PO DAILY 08/25/13 08/25/13 History mg-lycopene 300 mcg-lutein 250 mcg tablet (Centrum Silver) aspirin 325 mg tablet 325 mg PO DAILY 04/09/21 Unknown History lisinopril 5 mg tablet 5 mg PO DAILY bp 04/09/21 Unknown History ondansetron HCl 4 mg tablet 4 mg PO TID 01/04/25 Unknown History Allergy/AdvReac Type Severity Reaction Status Date / Time No Known Allergies Allergy Verified 01/04/25 06:48 Surgical History History of cardiac catheterization History of myringotomy History of tonsillectomy and adenoidectomy History of arthroscopy of knee Social History Smoking Status: Never smoker ROS Review of Systems ROS Unobtainable: due to endotracheal tube and due to mental status Physical Exam Const Constitutional Narrative: Intubated, sedated and mechanically ventilated. No ventilator dyssynchrony noted. Obese. General Appearance: patient mechanically ventilated HEENT normocephalic and head/scalp atraumatic Mouth: endotracheal tube in place and OG tube in place Eyes EOMs intact bilaterally, conjunctivae normal and no scleral icterus Neck supple General: trachea midline Chest inspection of chest normal Resp Auscultation: diminished lung sounds; Negative for rales, rhonchi or wheezes Cardio regular rate and regular rhythm GI normal to inspection, nondistended, normoactive bowel sounds Extremity no clubbing, cyanosis or edema Skin no rashes or lesions noted Neuro Sensorium / Orientation: sedated on vent Lab / Micro Data 01/04/25 05:47 01/04/25 05:47 Labs: Laboratory Results - last 24 hr 01/04/25 05:45: Total Creatine Kinase 250 H, Triglycerides 128 01/04/25 05:47: WBC 14.9 H, RBC 5.46, Hgb 13.5, Hct 46.9, MCV 85.9, MCH 24.7 L, MCHC 28.8 L, RDW Std Deviation 51.5 H, RDW Coeff of Nash 16.5 H, Plt Count 335, MPV 10.7, Immature Gran % (Auto) 1.400 H, Neut % (Auto) 21.9 L, Lymph % (Auto) 66.5 H, [place] % (Auto) 6.5, Eos % (Auto) 2.7, Baso % (Auto) 1.0, Absolute Neuts (auto) 3.3, Absolute Lymphs (auto) 9.87 H, Nucleated RBC % 0, Diff Path Review January, PT 15.1 H, INR 1.2, APTT 28.4, Sodium 140, Potassium 3.7, Chloride 102, Carbon Dioxide 16.3 L, Anion Gap 22 H, BUN 22 H, Creatinine 1.19, Estim Creat Clear Calc 95.34, Est GFR (MDRD) Non-Af 71, BUN/Creatinine Ratio 18.8, Glucose 261 H, Calcium 8.9, Magnesium 2.8 H, Total Bilirubin 0.27, Direct Bilirubin 0.12, AST 75 H, ALT 81 H, Alkaline Phosphatase 96, Troponin T High Sens 12, NT pro BNP II 100, Total Protein 6.7, Albumin 3.7, Globulin 3.0, b-Hydroxybutyric mmol/L 0.1 01/04/25 06:15: Lactic Acid 7.1 H* 01/04/25 06:55: Urine Color Yellow 01/04/25 06:55: Urine Color Cancelled, Urine Clarity Sl. Cloudy 01/04/25 06:55: Urine Clarity Cancelled, Urine pH 7.0 01/04/25 06:55: Urine pH Cancelled, Ur Specific [place] 1.010 01/04/25 06:55: Ur Specific [place] Cancelled, U Specif Grav (Refrac) Cancelled, Urine Protein 500 H 01/04/25 06:55: Urine Protein Cancelled, Urine Glucose (UA) 250 H 01/04/25 06:55: Urine Glucose (UA) Cancelled, Urine Ketones Negative 01/04/25 06:55: Urine Ketones Cancelled, Urine Occult Blood 150 H 01/04/25 06:55: Urine Occult Blood Cancelled, Urine Nitrite Negative 01/04/25 06:55: Urine Nitrite Cancelled, Urine Bilirubin Negative 01/04/25 06:55: Urine Bilirubin Cancelled, Urine Urobilinogen Normal 01/04/25 06:55: Urine Urobilinogen Cancelled, Ur Leukocyte Esterase Negative 01/04/25 06:55: Ur Leukocyte Esterase Cancelled, Urine RBC 5-10 SEEN, Urine WBC 0 SEEN, Ur Squamous Epith Cells 0-5 SEEN, Urine Bacteria 2+, Urine Mucus 0 SEEN 01/04/25 07:50: Troponin T Hi Sens 2 Hr 136 H* Micro: Microbiology 01/04/25 06:03 Mucosa - Nose SARS-CoV-2, Influenza & RSV (PCR) - Final ABG Data ABG results: ABG 01/04/25 01/04/25 06:13 08:00 Specimen Type ART ART Sample Site R Radial L Radial pH 7.05 L* 7.24 L Bicarbonate Actual 17.8 L 23.7 Total CO2 20 25 Base Excess -13 L -4 L O2 Saturation 89 L 98 O2 % 100.0 100.0 ABG pCO2 65.0 H 55.8 H ABG pO2 83 122 H Driss Test Positive Positive Respiration Rate 16 18 O2 Delivery Device Adult Vent Adult Vent Vent Mode AC Not entered Tidal Volume 500.0 500.0 POC PEEP 10 10 Crit Call To/Read Back Yes Blood Gas Notified Whom Blood Gas Notified Time 06:14:59 Imaging Radiology Impression Chest X-Ray 01/04/25 05:52 IMPRESSION: Endotracheal tube 4 cm above the shanice. Nasogastric tube and side port crosses the diaphragm within the proximal stomach with tip directed into the fundus. Percutaneous pacing/defibrillator pad and overlapping wires. Bilateral nmytp-cxgzifc-jbab-left patchy perihilar upper zone predominant ill-defined opacities may represent infiltrate or unusual pulmonary edema not excluded, clinically correlate. Reading Location: [id number] Brain CT 01/04/25 05:56 IMPRESSION: As above. Cerebral edema to be ruled out clinically. MRI may be performed if clinically indicated. No acute intracranial hemorrhage, mass effect or midline shift. Reading Location: [id number] Chest CTA 01/04/25 05:56 IMPRESSION: Large confluent alveolar opacities within the posterior portions of the lungs. Differential possibility release includes, but not limited to diffuse alveolar hemorrhage, large aspirations, large infectious or inflammatory process. Follow-up until resolution is recommended. No evidence of pulmonary embolism. No evidence of aortic dissection within the visualized portion of the chest. Right anterior 4th and 5th rib fractures presumably due to CPR. Correlate clinically Bilateral thyroid nodules. Correlate with dedicated ultrasound. Other findings as above. Reading Location: [id number] Charges/Coding Procedures Hospitalists Procedures: 18109 Critical Care 1st Hr
[2025-01-04] MEDS: Pantoprazole Sodium 40 MG in 0.9% Normal Saline (100mL MB+) 100 ML 330 MG IV ×2 (11:00→20:59)
[2025-01-04] MEDS: Enoxaparin 40 MG/0.4 ML Syringe SC (11:02)
--- NOTE | 2025-01-04 11:30 | PCM.CONS.C ---
Assessment & Plan Assessment/Plan (1) Cardiac arrest with ventricular fibrillation: PLAN: V-fib as per EMS. Defibrillated. Discussed with patient's in detail. Recommend coronary angiography with possible revascularization if indicated. Risks benefits explained. She understands and wishes to proceed. (2) Left ventricular systolic dysfunction (LVSD): PLAN: Status post V-fib arrest. Continue to monitor. Cannot exclude LV noncompaction on echocardiogram. Will need evaluation with a cardiac MRI if he has recovery from the current event. (3) Aspiration pneumonia: PLAN: As per critical care. (4) Acute respiratory failure with hypoxia and hypercapnia: PLAN: On ventilator. HPI Consult Data Date of Consult: 01/04/25 HPI Narrative Reason for Consultation: Rki-ny-fsoanxux cardiac arrest HPI Narrative: 59-year-old gentleman with past medical history significant for hypertension, dyslipidemia and coronary artery disease. His woke up this morning to him grunting. She found him unresponsive. EMS was called who arrived the scene within 10 minutes to find him in ventricular fibrillation. CPR was started. He was defibrillated around 5 times. ROSC was obtained. Presently he is intubated and sedated on ventilator. Per patient's , the patient has had coronary angiography done more than 15 years ago. It found nonobstructive CAD for which she was being medically managed. [facility] Medical History (Updated 01/04/25 @ 11:[address] Shad Pierce MD) Seasonal allergies Wears glasses History of kidney stones Hyperlipemia Non-smoker Hypertension Home Medications ?Medication ?Instructions ?Recorded ?Last Taken ?Type atenolol 50 mg tablet 50 mg PO QHS 08/25/13 08/24/13 History atorvastatin 40 mg tablet 20 mg PO QHS 08/25/13 08/24/13 History fluticasone propionate 50 2 spray DAILY 08/25/13 08/25/13 History mcg/actuation nasal spray,suspension loratadine-pseudoephedrine ER 10 1 tab PO DAILY 08/25/13 08/25/13 History mg-240 mg tablet,extended [id number] (Loratadine-D) htqwhwhn-pvy-bdbax acid 0.4 1 ea PO DAILY 08/25/13 08/25/13 History mg-lycopene 300 mcg-lutein 250 mcg tablet (Centrum Silver) aspirin 325 mg tablet 325 mg PO DAILY 04/09/21 Unknown History lisinopril 5 mg tablet 5 mg PO DAILY bp 04/09/21 Unknown History ondansetron HCl 4 mg tablet 4 mg PO TID 01/04/25 Unknown History Allergy/AdvReac Type Severity Reaction Status Date / Time No Known Allergies Allergy Verified 01/04/25 06:48 Surgical History History of cardiac catheterization History of myringotomy History of tonsillectomy and adenoidectomy History of arthroscopy of knee Social History Smoking Status: Never smoker Physical Exam Narrative Sedated on ventilator. Pupils are dilated but reactive to light. Heart sounds 1 and 2 noted. Chest with decreased breath sounds bilaterally. No ankle edema is noted. Risk Stratification Risk Stratification Applicable: No Objective Data Vital Signs: Vital Signs Temp Pulse Resp BP Pulse Ox O2 Del Method 96.2 F L 89 16 140/98 H 98 Mechanical Ventilator 01/04/25 05:50 01/04/25 08:30 01/04/25 08:30 01/04/25 09:00 01/04/25 08:30 01/04/25 08:30 Oxygen Delivery Method Mechanical Ventilator Weight: 278 lb Body Mass Index (BMI) 41.1 Intake & Output: Intake and Output for Last 24 Hours 01/02/25 01/03/25 01/04/25 23:59 23:59 23:59 Intake Total 3261.14 / 3261.14 Balance 3261.14 / 3261.14 Lab / Micro Data 01/04/25 05:47 01/04/25 05:47 Labs: Laboratory Results - last 24 hr 01/04/25 05:45: Total Creatine Kinase 250 H, Triglycerides 128 01/04/25 05:47: WBC 14.9 H, RBC 5.46, Hgb 13.5, Hct 46.9, MCV 85.9, MCH 24.7 L, MCHC 28.8 L, RDW Std Deviation 51.5 H, RDW Coeff of Nash 16.5 H, Plt Count 335, MPV 10.7, Immature Gran % (Auto) 1.400 H, Neut % (Auto) 21.9 L, Lymph % (Auto) 66.5 H, [place] % (Auto) 6.5, Eos % (Auto) 2.7, Baso % (Auto) 1.0, Absolute Neuts (auto) 3.3, Absolute Lymphs (auto) 9.87 H, Nucleated RBC % 0, Diff Path Review January, PT 15.1 H, INR 1.2, APTT 28.4, Sodium 140, Potassium 3.7, Chloride 102, Carbon Dioxide 16.3 L, Anion Gap 22 H, BUN 22 H, Creatinine 1.19, Estim Creat Clear Calc 95.34, Est GFR (MDRD) Non-Af 71, BUN/Creatinine Ratio 18.8, Glucose 261 H, Calcium 8.9, Magnesium 2.8 H, Total Bilirubin 0.27, Direct Bilirubin 0.12, AST 75 H, ALT 81 H, Alkaline Phosphatase 96, Troponin T High Sens 12, NT pro BNP II 100, Total Protein 6.7, Albumin 3.7, Globulin 3.0, b-Hydroxybutyric mmol/L 0.1 01/04/25 06:15: Lactic Acid 7.1 H* 01/04/25 06:55: Urine Color Yellow 01/04/25 06:55: Urine Color Cancelled, Urine Clarity Sl. Cloudy 01/04/25 06:55: Urine Clarity Cancelled, Urine pH 7.0 01/04/25 06:55: Urine pH Cancelled, Ur Specific [place] 1.010 01/04/25 06:55: Ur Specific [place] Cancelled, U Specif Grav (Refrac) Cancelled, Urine Protein 500 H 01/04/25 06:55: Urine Protein Cancelled, Urine Glucose (UA) 250 H 01/04/25 06:55: Urine Glucose (UA) Cancelled, Urine Ketones Negative 01/04/25 06:55: Urine Ketones Cancelled, Urine Occult Blood 150 H 01/04/25 06:55: Urine Occult Blood Cancelled, Urine Nitrite Negative 01/04/25 06:55: Urine Nitrite Cancelled, Urine Bilirubin Negative 01/04/25 06:55: Urine Bilirubin Cancelled, Urine Urobilinogen Normal 01/04/25 06:55: Urine Urobilinogen Cancelled, Ur Leukocyte Esterase Negative 01/04/25 06:55: Ur Leukocyte Esterase Cancelled, Urine RBC 5-10 SEEN, Urine WBC 0 SEEN, Ur Squamous Epith Cells 0-5 SEEN, Urine Bacteria 2+, Urine Mucus 0 SEEN 01/04/25 07:50: Troponin T Hi Sens 2 Hr 136 H* Micro: Microbiology 01/04/25 06:03 Mucosa - Nose SARS-CoV-2, Influenza & RSV (PCR) - Final ABG Data ABG results: ABG 01/04/25 01/04/25 06:13 08:00 Specimen Type ART ART Sample Site R Radial L Radial pH 7.05 L* 7.24 L Bicarbonate Actual 17.8 L 23.7 Total CO2 20 25 Base Excess -13 L -4 L O2 Saturation 89 L 98 O2 % 100.0 100.0 ABG pCO2 65.0 H 55.8 H ABG pO2 83 122 H Driss Test Positive Positive Respiration Rate 16 18 O2 Delivery Device Adult Vent Adult Vent Vent Mode AC Not entered Tidal Volume 500.0 500.0 POC PEEP 10 10 Crit Call To/Read Back Yes Blood Gas Notified Whom Blood Gas Notified Time 06:14:59 Cardiology Labs/Tests 01/04/25 05:45: Triglycerides 128 01/04/25 05:47: WBC 14.9 H, RBC 5.46, Hgb 13.5, Hct 46.9, MCV 85.9, MCH 24.7 L, MCHC 28.8 L, Plt Count 335, MPV 10.7, Immature Gran % (Auto) 1.400 H, Neut % (Auto) 21.9 L, Lymph % (Auto) 66.5 H, [place] % (Auto) 6.5, Eos % (Auto) 2.7, Baso % (Auto) 1.0, Absolute Neuts (auto) 3.3, Nucleated RBC % 0, PT 15.1 H, INR 1.2, APTT 28.4, Sodium 140, Potassium 3.7, Chloride 102, Carbon Dioxide 16.3 L, Anion Gap 22 H, BUN 22 H, Creatinine 1.19, Est GFR (MDRD) Non-Af 71, BUN/Creatinine Ratio 18.8, Glucose 261 H, Calcium 8.9, Magnesium 2.8 H, Total Bilirubin 0.27, Direct Bilirubin 0.12 01/04/25 06:13: pH 7.05 L*, Bicarbonate Actual 17.8 L, Base Excess -13 L, O2 Saturation 89 L, ABG pCO2 65.0 H, ABG pO2 83, Driss Test Positive 01/04/25 06:15: Lactic Acid 7.1 H* 01/04/25 06:55: Urine Color Yellow 01/04/25 06:55: Urine Color Cancelled, Urine Clarity Sl. Cloudy 01/04/25 06:55: Urine Clarity Cancelled, Urine pH 7.0 01/04/25 06:55: Urine pH Cancelled, Ur Specific [place] 1.010 01/04/25 06:55: Ur Specific [place] Cancelled, U Specif Grav (Refrac) Cancelled, Urine Protein 500 H 01/04/25 06:55: Urine Protein Cancelled, Urine Glucose (UA) 250 H 01/04/25 06:55: Urine Glucose (UA) Cancelled, Urine Ketones Negative 01/04/25 06:55: Urine Ketones Cancelled, Urine Occult Blood 150 H 01/04/25 06:55: Urine Occult Blood Cancelled, Urine Nitrite Negative 01/04/25 06:55: Urine Nitrite Cancelled, Urine Bilirubin Negative 01/04/25 06:55: Urine Bilirubin Cancelled, Urine Urobilinogen Normal 01/04/25 06:55: Urine Urobilinogen Cancelled, Ur Leukocyte Esterase Negative 01/04/25 06:55: Ur Leukocyte Esterase Cancelled, Urine RBC 5-10 SEEN, Urine WBC 0 SEEN 01/04/25 08:00: pH 7.24 L, Bicarbonate Actual 23.7, Base Excess -4 L, O2 Saturation 98, ABG pCO2 55.8 H, ABG pO2 122 H, Driss Test Positive Rhythm: EKG: ECHO: Stress Test: Cardiac Cath: PCI: CT Surgery: Holter monitor: EPS: PPM: CXR: Chest CT Scan: Radiography Diagnostic Testing: Radiology Impression Chest X-Ray 01/04/25 05:52 IMPRESSION: Endotracheal tube 4 cm above the shanice. Nasogastric tube and side port crosses the diaphragm within the proximal stomach with tip directed into the fundus. Percutaneous pacing/defibrillator pad and overlapping wires. Bilateral xblsb-tjpwdzf-xgem-left patchy perihilar upper zone predominant ill-defined opacities may represent infiltrate or unusual pulmonary edema not excluded, clinically correlate. Reading Location: [facility] Brain CT 01/04/25 05:56 IMPRESSION: As above. Cerebral edema to be ruled out clinically. MRI may be performed if clinically indicated. No acute intracranial hemorrhage, mass effect or midline shift. Reading Location: [id number] Chest CTA 01/04/25 05:56 IMPRESSION: Large confluent alveolar opacities within the posterior portions of the lungs. Differential possibility release includes, but not limited to diffuse alveolar hemorrhage, large aspirations, large infectious or inflammatory process. Follow-up until resolution is recommended. No evidence of pulmonary embolism. No evidence of aortic dissection within the visualized portion of the chest. Right anterior 4th and 5th rib fractures presumably due to CPR. Correlate clinically Bilateral thyroid nodules. Correlate with dedicated ultrasound. Other findings as above. Reading Location: [id number] Echocardiogram 01/04/25 09:33 Interpretation Summary Severe LV systolic dysfunction with generalized hypokinesis. Estimated LVEF 20 to 25%. Stage I diastolic dysfunction. Cannot exclude LV noncompaction. Mild tricuspid valve insufficiency. Abnormal hepatic architecture. Consider ultrasound of the liver for further evaluation. The study was technically difficult. Ordering Physician: Torey Malhotra Referring Physician: Wing Calderón Performed By: Gosia Bland, CLOVER
--- NOTE | 2025-01-04 12:47 | CL.D_ITS ---
Patient Name: KODAK VELASQUEZ Study Date: 01/04/2025 Performing: Shad Pierce MD Ht: 69 inches 175 cm : 1965 Wt: 278.4 lbs 126.1 kg Age: 59 Gender: male BSA: 2.37 PROCEDURE(S) PERFORMED [id number])LHC/COR/LV CLINICAL PROFILE AND INDICATIONS Indications: Suspected CAD, Cardiac Arrythmia Heart Failure: Newly Diagnosed: Yes Stress/Imaging Stress/Image Study Performed: No CAD Presentations: Other: VFib arrest CONCLUSIONS Mild non-obstructive CAD Severe LV systolic dysfunction. Estimated LVEF 10-15% RECOMMENDATIONS Medical therapy Risk factor modification DESCRIPTION OF PROCEDURE The patient arrived to the procedure lab. The risks and benefits of the procedure as well as a full description of our services here and current unavailability of surgical backup were fully explained to the patient and/or their significant other prior to the catheterization. The Timeout was completed, verifying the correct patient and procedure. The patient's procedural site was prepped and draped in the usual fashion. Local anesthetic was given subcutaneously to right radial region with Lidocaine 2%. Using a modified Seldinger technique, arterial access was obtained via the right radial artery, a 6Fr sheath was inserted. Left Coronary Artery selective angiography was performed in multiple views using a 5 Fr. 4.0 [place] catheter. Left Coronary Artery selective angiography was performed in multiple views using a 5 Fr. JL3.0 catheter. Right Coronary Artery selective angiography was then performed in multiple views using a 5 Fr. JR 4 catheter. Left Ventriculography was performed in ANTHONY projection using a 5 Fr. Pigtail catheter. LV to AO pullback pressures were then recorded.The arterial sheath was pulled and a TR Band was applied for hemostasis w/ 10ml air CORONARY ANGIOGRAPHY DOMINANCE: Left Dominant LEFT HEART ASSESSMENT Left Ventricular Ejection Fraction: by LV Gram 10-15 % LVEDP: 31 mmHg LEFT MAIN: Angiographically normal LEFT ANTERIOR DESCENDING ARTERY: LAD: Tubular 40% Mid lesion in LAD DIAGONAL 1: Tubular 20% Ostial lesion in 1st Diagonal OM 1: Tubular 30% Proximal lesion in MARG1 OM 2: Tubular 30% Proximal lesion in MARG1 RIGHT CORONARY ARTERY: RCA: Tubular 20% Proximal lesion in RCA COMPLICATIONS No Complications PROCEDURE MEDICATIONS Fentanyl 35 mcg IV drip decreased rate Oxygen: 40 % FiO2 via ventilator. See Resp Record for Settings Oxygen: 60 % FiO2 via ventilator. See Resp Record for Settings Oxygen: 80 % FiO2 via ventilator. See Resp Record for Settings Oxygen: 100 % FiO2 via ventilator. See Resp Record for Settings SUMMARY OF HEMODYNAMIC DATA Time AIR REST ECG 11:46:28 AO 79/55 (62) SA 12:01:00 AO 73/54 (60) 12:08:42 LV 82/22, 29 12:17:01 LV 84/27, 32 12:17:39 LV 85/28, 32 12:17:47 LV 81/26, 31 12:18:05 LVp 81/25, 31 12:18:10 AOp 0/0 (39) 12:18:17 Signed By Shad Pierce MD On 01/04/2025 12:47:13 Shad Pierce MD
[2025-01-04] MEDS: DOPamine IV 800 MG/250 ML IV.SOLN. 35.5 MG CONT INF ×2 (13:00→18:52)
[2025-01-04] MEDS: Amiodarone 360 MG in Dextrose 5% Viaflo Bag 192.8 ML 16.7 MG CONT INF (13:10)
[2025-01-04] MEDS: Vancomycin HCl 2,000 MG in 0.9% Normal Saline (500mL Bag) 500 ML 250 MG IV (13:10)
[2025-01-04] MEDS: Ipratropium/Albuterol Sulfate 3 ML AMPUL.NEB INHALATION ×2 (13:19→19:05)
[2025-01-04] MEDS: Propofol 10MG/Ml 1,000 MG/100 ML Bottle 16.8 MG CONT INF ×2 (14:07→18:55)
--- NOTE | 2025-01-04 14:11 | PCM.RX.CS ---
Consult Antibiotic Management Pharmacy has been consulted to manage selected antibiotic: Vancomycin Type of Intervention Type of Consult: New start Prior Doses of Antibiotics Prior Doses of Antibiotics Received/Current Regimen: vanc 2000mg IV x1 ordered in E.R. and given at 13:10 today Labs Labs: Sodium 140 mmol/L (133-145) 01/04/25 05:47 Potassium 3.7 mmol/L (3.3-5.1) 01/04/25 05:47 Chloride 102 mmol/L (98-108) 01/04/25 05:47 Carbon Dioxide 16.3 mmol/L (21.0-32.0) L 01/04/25 05:47 Anion Gap 22 (5-15) H 01/04/25 05:47 BUN 22 mg/dL (4-19) H 01/04/25 05:47 Creatinine 1.19 mg/dL (0.70-1.20) 01/04/25 05:47 Est GFR (MDRD) Non-Af 71 (>60) 01/04/25 05:47 BUN/Creatinine Ratio 18.8 RATIO (10-20) 01/04/25 05:47 Glucose 261 mg/dL (70-99) H 01/04/25 05:47 Microbiology Microbiology: Microbiology 01/04/25 06:18 Sputum, Induced/Lukens Gram Stain - Final 01/04/25 10:30 Interface Orders Gastric Occult Blood - Final Occult Blood Positive 01/04/25 06:03 Mucosa - Nose SARS-CoV-2, Influenza & RSV (PCR) - Final Dosing Weight Weight used for dosin kg Estimated Creatinine Clearance Estimated Creatinine Clearance: 95 ml/min Goal Trough Goal Trough: 15-20 mcg/mL Pharmacy Plan for Drug Dosing Pharmacy Plan for Drug Dosing: Continue with vanc 1250mg IV q8h per [facility] dosing protocol. Check a trough before the 4th overall dose. Pharmacy Service will continue to monitor and adjust dosing as required. Follow-Up Labs Follow-Up Labs: Trough: Vancomycin Date/Time Labs Ordered Labs to be done on [date and time ordered]: 01/05/25 12:30
[2025-01-04 14:32] LABS: Bedside Glucose 154 mg/dL (74-106)
[2025-01-04] MEDS: Piperacil/Tazobactam 3.375 GM in 0.9% Normal Saline (50mL MB+) 50 ML IV ×2 (15:28→22:44)
[2025-01-04 15:48] LABS: Pathologist Review Reviewed
[2025-01-04 16:58] LABS: Bedside Glucose 151 mg/dL (74-106)
--- NOTE | 2025-01-04 17:03 | PCM.HP.STD ---
HPI - General General Date of Admission: 01/04/25 Date of Service: 01/04/25 Chief Complaint: Cardiac arrest HPI Narrative KODAK VELASQUEZ, is a 59 M who presents to the emergency room at [facility] after being found unresponsive in his bed by his , she was unable to wake him up and he had snoring respirations. Patient's called 911, they recommended starting CPR but the patient's was only able to give chest compressions and no rescue breathing. The police arrived shortly afterwards but did not start CPR due to the fact the squad arrived and began ACLS protocol. Patient was detected to be in ventricular fibrillation, he was shocked a total of 5 times, he received IV epinephrine and was given a bolus of amiodarone. On arrival to the emergency room, patient was intubated and the EKG was obtained which showed a normal sinus rhythm without evidence of any ischemic changes. Patient's blood gas revealed an acidosis, CBC showed white blood cell count of 14.9, patient's chemistry profile showed a BUN of 22, glucose of 261, patient's AST was elevated at 75 and ALT was elevated at 81, initial troponin was 12, 2-hour troponin was 136. Patient's lactic acid was elevated at 7.1. CT of the chest was obtained which showed no evidence of pulmonary embolism. There was a large confluent alveolar opacities in the posterior portions of the lungs. There was noted to be right anterior 4th and 5th rib fractures-this was probably from the CPR. Patient was given IV antibiotics. CT of the brain showed possible cerebral edema, there is no intracranial hemorrhage mass effect or midline shift. I contacted critical care, cardiology was also contacted, patient was admitted to ICU for further care. requested patient to be a full code with all measures. [facility] Medical History (Updated 01/04/25 @ 11:[address] Shad Pierce MD) Seasonal allergies Wears glasses History of kidney stones Hyperlipemia Non-smoker Hypertension Home Medications ?Medication ?Instructions ?Recorded ?Last Taken ?Type atenolol 50 mg tablet 50 mg PO QHS 08/25/13 08/24/13 History atorvastatin 40 mg tablet 20 mg PO QHS 08/25/13 08/24/13 History fluticasone propionate 50 2 spray DAILY 08/25/13 08/25/13 History mcg/actuation nasal spray,suspension loratadine-pseudoephedrine ER 10 1 tab PO DAILY 08/25/13 08/25/13 History mg-240 mg tablet,extended [id number] (Loratadine-D) brettrcj-oew-tflfo acid 0.4 1 ea PO DAILY 08/25/13 08/25/13 History mg-lycopene 300 mcg-lutein 250 mcg tablet (Centrum Silver) aspirin 325 mg tablet 325 mg PO DAILY 04/09/21 Unknown History lisinopril 5 mg tablet 5 mg PO DAILY bp 04/09/21 Unknown History ondansetron HCl 4 mg tablet 4 mg PO TID 01/04/25 Unknown History Allergy/AdvReac Type Severity Reaction Status Date / Time No Known Allergies Allergy Verified 01/04/25 06:48 Surgical History History of cardiac catheterization History of myringotomy History of tonsillectomy and adenoidectomy History of arthroscopy of knee Social History Smoking Status: Never smoker ROS ROS Narrative Review of systems was unobtainable due to the patient being intubated and unconscious Vital Signs Vital Signs Vital Signs: 01/04/25 05:44 01/04/25 05:50 01/04/25 06:11 Temperature 0 F L 96.2 F L Temperature Source Axillary Core Pulse Rate 124 H 98 109 H Respiratory Rate 37 H 16 43 H Respiratory Effort Respiratory Depth Respiratory Pattern Blood Pressure 137/123 H 143/101 H 151/99 H Blood Pressure Mean 127 115 116 Blood Pressure Source Monitor Blood Pressure Position Semi-Fowlers Blood Pressure Location Left Arm Pulse Ox 90 98 91 Oxygen Delivery Method Non-Rebreather Mechanical Ventilator Mechanical Ventilator Fraction of Inspired Oxygen (FIO2) 01/04/25 06:14 01/04/25 06:44 01/04/25 06:47 Temperature Temperature Source Pulse Rate 98 98 98 Respiratory Rate 16 16 16 Respiratory Effort Respiratory Depth Respiratory Pattern Normal Blood Pressure 149/107 H 143/101 H Blood Pressure Mean 121 115 Blood Pressure Source Blood Pressure Position Blood Pressure Location Pulse Ox 96 96 96 Oxygen Delivery Method Mechanical Ventilator Mechanical Ventilator Fraction of Inspired Oxygen (FIO2) 01/04/25 06:48 01/04/25 07:00 01/04/25 07:05 Temperature Temperature Source Pulse Rate 94 Respiratory Rate 16 Respiratory Effort Mechanically Ventilated Mechanically Ventilated Respiratory Depth Normal Respiratory Pattern Normal Normal Blood Pressure 143/101 H Blood Pressure Mean 115 Blood Pressure Source Blood Pressure Position Blood Pressure Location Pulse Ox 97 Oxygen Delivery Method Mechanical Ventilator Mechanical Ventilator Fraction of Inspired Oxygen (FIO2) 01/04/25 07:35 01/04/25 07:59 01/04/25 08:08 Temperature Temperature Source Pulse Rate 94 91 91 Respiratory Rate 19 H 16 17 Respiratory Effort Respiratory Depth Respiratory Pattern Normal Blood Pressure 129/91 H 119/92 H Blood Pressure Mean 103 101 Blood Pressure Source Blood Pressure Position Blood Pressure Location Pulse Ox 98 96 100 Oxygen Delivery Method Mechanical Ventilator Fraction of Inspired Oxygen (FIO2) 01/04/25 08:30 01/04/25 09:00 01/04/25 09:20 Temperature Temperature Source Pulse Rate 89 90 Respiratory Rate 16 16 Respiratory Effort Respiratory Depth Respiratory Pattern Normal Blood Pressure 121/98 H 140/98 H Blood Pressure Mean 105 112 Blood Pressure Source Blood Pressure Position Blood Pressure Location Pulse Ox 98 96 Oxygen Delivery Method Mechanical Ventilator Fraction of Inspired Oxygen (FIO2) 90 01/04/25 09:30 01/04/25 09:45 01/04/25 10:00 Temperature 97.6 F L Temperature Source Core Pulse Rate 88 89 Respiratory Rate 16 16 Respiratory Effort Mechanically Ventilated Respiratory Depth Respiratory Pattern Blood Pressure 154/109 H 145/106 H Blood Pressure Mean 124 119 Blood Pressure Source Monitor Monitor Blood Pressure Position Supine Supine Blood Pressure Location Right Arm Right Arm Pulse Ox 98 99 Oxygen Delivery Method Mechanical Ventilator Mechanical Ventilator Mechanical Ventilator Fraction of Inspired Oxygen (FIO2) 100 100 60 01/04/25 10:00 01/04/25 10:15 01/04/25 10:30 Temperature 97.4 F L Temperature Source Core Pulse Rate 87 88 76 Respiratory Rate 16 16 16 Respiratory Effort Respiratory Depth Respiratory Pattern Blood Pressure 130/104 H 83/64 L 92/64 Blood Pressure Mean 112 70 73 Blood Pressure Source Monitor Monitor Blood Pressure Position Supine Supine Blood Pressure Location Right Arm Right Arm Pulse Ox 97 96 98 Oxygen Delivery Method Mechanical Ventilator Mechanical Ventilator Mechanical Ventilator Fraction of Inspired Oxygen (FIO2) 100 100 60 01/04/25 11:00 01/04/25 11:42 01/04/25 12:36 Temperature Temperature Source Pulse Rate 72 88 Respiratory Rate 16 16 Respiratory Effort Mechanically Ventilated Respiratory Depth Respiratory Pattern Normal Blood Pressure 88/62 L Blood Pressure Mean 70 Blood Pressure Source Monitor Blood Pressure Position Semi-Fowlers Blood Pressure Location Left Arm Pulse Ox 100 96 Oxygen Delivery Method Mechanical Ventilator Mechanical Ventilator Fraction of Inspired Oxygen (FIO2) 60 75 60 01/04/25 12:45 01/04/25 13:00 01/04/25 13:21 Temperature Temperature Source Pulse Rate 78 76 88 Respiratory Rate 16 16 20 H Respiratory Effort Respiratory Depth Respiratory Pattern Normal Tachypnea Blood Pressure 87/57 L Blood Pressure Mean 67 Blood Pressure Source Monitor Blood Pressure Position Supine Blood Pressure Location Right Arm Pulse Ox 94 94 Oxygen Delivery Method Mechanical Ventilator Fraction of Inspired Oxygen (FIO2) 100 100 01/04/25 14:00 01/04/25 14:00 01/04/25 15:00 Temperature 97.3 F L Temperature Source Core Pulse Rate 76 73 Respiratory Rate 16 16 Respiratory Effort Respiratory Depth Respiratory Pattern Blood Pressure 90/55 L 88/52 L 89/51 L Blood Pressure Mean 66 64 63 Blood Pressure Source Monitor Monitor Monitor Blood Pressure Position Semi-Fowlers Blood Pressure Location Right Arm Pulse Ox 96 96 Oxygen Delivery Method Mechanical Ventilator Mechanical Ventilator Fraction of Inspired Oxygen (FIO2) 100 100 01/04/25 15:00 01/04/25 16:00 01/04/25 16:00 Temperature Temperature Source Pulse Rate 82 79 Respiratory Rate 16 18 Respiratory Effort Mechanically Ventilated Respiratory Depth Respiratory Pattern Blood Pressure 101/56 L 95/47 L Blood Pressure Mean 71 63 Blood Pressure Source Monitor Monitor Blood Pressure Position Semi-Fowlers Semi-Fowlers Blood Pressure Location Left Arm Left Arm Pulse Ox 96 94 Oxygen Delivery Method Mechanical Ventilator Mechanical Ventilator Mechanical Ventilator Fraction of Inspired Oxygen (FIO2) 100 100 60 Weight Weight: 126.099 kg Body Mass Index (BMI) 41.1 Physical Exam Const Constitutional Narrative: Patient is ventilated and sedated General Appearance: well kempt and well developed HEENT normocephalic, head/scalp atraumatic and moist oral mucous membranes Eyes PERRL and conjunctivae normal Neck no JVD, thyroid normal and no carotid bruits General: trachea midline Resp Resp Narrative: Patient is sedated and on the ventilator Auscultation: Negative for rales, rhonchi or wheezes Cardio regular rate, regular rhythm, S1 normal heart sound, S2 normal heart sound, no murmurs, no rub and no gallops GI normal to inspection, nondistended, normoactive bowel sounds, soft to palpation and non-distended Extremity normal to inspection and no clubbing, cyanosis or edema Skin no rashes or lesions noted General Skin Exam: no breakdown Neuro Neuro Narrative: Patient is moving his lower extremities at times, he does open his eyes to verbal stimulation, he was asked to take a deep breath while intubated and did so Psych Psych Narrative: Patient is sedated on the ventilator Results Lab / Micro Data 01/04/25 05:47 01/04/25 05:47 Labs: Laboratory Results - last 24 hr 01/04/25 05:45: Total Creatine Kinase 250 H, Triglycerides 128 01/04/25 05:47: WBC 14.9 H, RBC 5.46, Hgb 13.5, Hct 46.9, MCV 85.9, MCH 24.7 L, MCHC 28.8 L, RDW Std Deviation 51.5 H, RDW Coeff of Nash 16.5 H, Plt Count 335, MPV 10.7, Immature Gran % (Auto) 1.400 H, Neut % (Auto) 21.9 L, Lymph % (Auto) 66.5 H, H[place]ett % (Auto) 6.5, Eos % (Auto) 2.7, Baso % (Auto) 1.0, Absolute Neuts (auto) 3.3, Absolute Lymphs (auto) 9.87 H, Nucleated RBC % 0, Diff Path Review Reviewed, PT 15.1 H, INR 1.2, APTT 28.4, Sodium 140, Potassium 3.7, Chloride 102, Carbon Dioxide 16.3 L, Anion Gap 22 H, BUN 22 H, Creatinine 1.19, Estim Creat Clear Calc 95.34, Est GFR (MDRD) Non-Af 71, BUN/Creatinine Ratio 18.8, Glucose 261 H, Calcium 8.9, Magnesium 2.8 H, Total Bilirubin 0.27, Direct Bilirubin 0.12, AST 75 H, ALT 81 H, Alkaline Phosphatase 96, Troponin T High Sens 12, NT pro BNP II 100, Total Protein 6.7, Albumin 3.7, Globulin 3.0, b-Hydroxybutyric mmol/L 0.1 01/04/25 06:15: Lactic Acid 7.1 H* 01/04/25 06:55: Urine Color Yellow 01/04/25 06:55: Urine Color Cancelled, Urine Clarity Sl. Cloudy 01/04/25 06:55: Urine Clarity Cancelled, Urine pH 7.0 01/04/25 06:55: Urine pH Cancelled, Ur Specific Brady 1.010 01/04/25 06:55: Ur Specific Brady Cancelled, U Specif Grav (Refrac) Cancelled, Urine Protein 500 H 01/04/25 06:55: Urine Protein Cancelled, Urine Glucose (UA) 250 H 01/04/25 06:55: Urine Glucose (UA) Cancelled, Urine Ketones Negative 01/04/25 06:55: Urine Ketones Cancelled, Urine Occult Blood 150 H 01/04/25 06:55: Urine Occult Blood Cancelled, Urine Nitrite Negative 01/04/25 06:55: Urine Nitrite Cancelled, Urine Bilirubin Negative 01/04/25 06:55: Urine Bilirubin Cancelled, Urine Urobilinogen Normal 01/04/25 06:55: Urine Urobilinogen Cancelled, Ur Leukocyte Esterase Negative 01/04/25 06:55: Ur Leukocyte Esterase Cancelled, Urine RBC 5-10 SEEN, Urine WBC 0 SEEN, Ur Squamous Epith Cells 0-5 SEEN, Urine Bacteria 2+, Urine Mucus 0 SEEN 01/04/25 07:50: Troponin T Hi Sens 2 Hr 136 H* 01/04/25 14:12: POC Glucose 154 H 01/04/25 16:35: POC Glucose 151 H Micro: Microbiology 01/04/25 06:18 Sputum, Induced/Lukens Gram Stain - Final 01/04/25 10:30 Interface Orders Gastric Occult Blood - Final Occult Blood Positive 01/04/25 06:03 Mucosa - Nose SARS-CoV-2, Influenza & RSV (PCR) - Final ABG Data ABG results: ABG 01/04/25 01/04/25 06:13 08:00 Specimen Type ART ART Sample Site R Radial L Radial pH 7.05 L* 7.24 L Bicarbonate Actual 17.8 L 23.7 Total CO2 20 25 Base Excess -13 L -4 L O2 Saturation 89 L 98 O2 % 100.0 100.0 ABG pCO2 65.0 H 55.8 H ABG pO2 83 122 H Driss Test Positive Positive Respiration Rate 16 18 O2 Delivery Device Adult Vent Adult Vent Vent Mode AC Not entered Tidal Volume 500.0 500.0 POC PEEP 10 10 Crit Call To/Read Back Yes Blood Gas Notified Whom Blood Gas Notified Time 06:14:59 Imaging Radiology Impression Chest X-Ray 01/04/25 05:52 IMPRESSION: Endotracheal tube 4 cm above the shanice. Nasogastric tube and side port crosses the diaphragm within the proximal stomach with tip directed into the fundus. Percutaneous pacing/defibrillator pad and overlapping wires. Bilateral [id number]-[id number]-left patchy perihilar upper zone predominant ill-defined opacities may represent infiltrate or unusual pulmonary edema not excluded, clinically correlate. Reading Location: [id number] Brain CT 01/04/25 05:56 IMPRESSION: As above. Cerebral edema to be ruled out clinically. MRI may be performed if clinically indicated. No acute intracranial hemorrhage, mass effect or midline shift. Reading Location: [facility] Chest CTA 01/04/25 05:56 IMPRESSION: Large confluent alveolar opacities within the posterior portions of the lungs. Differential possibility release includes, but not limited to diffuse alveolar hemorrhage, large aspirations, large infectious or inflammatory process. Follow-up until resolution is recommended. No evidence of pulmonary embolism. No evidence of aortic dissection within the visualized portion of the chest. Right anterior 4th and 5th rib fractures presumably due to CPR. Correlate clinically Bilateral thyroid nodules. Correlate with dedicated ultrasound. Other findings as above. Reading Location: [facility] Echocardiogram 01/04/25 09:33 Interpretation Summary Severe LV systolic dysfunction with generalized hypokinesis. Estimated LVEF 20 to 25%. Stage I diastolic dysfunction. Cannot exclude LV noncompaction. Mild tricuspid valve insufficiency. Abnormal hepatic architecture. Consider ultrasound of the liver for further evaluation. The study was technically difficult. Ordering Physician: Torey Malhotra Referring Physician: Wing Calderón Performed By: Gosia Bland RDCS Assessment & Plan Assessment/Plan (1) Cardiac arrest with ventricular fibrillation: PLAN: Plan #1 ventricular fibrillation with cardiac arrest-patient was admitted to ICU, he will be seen by cardiology and critical care, echocardiogram was ordered, patient remains on IV amiodarone #2 acute combined respiratory failure-patient remains on the ventilator at this time, critical care will see the patient in consultation #3 bilateral infiltrates-probable aspiration pneumonia-patient was placed on Zosyn and vancomycin #4 essential hypertension-patient's blood pressure will be monitored, he is on lisinopril and atenolol #5 right anterior 4th and 5th rib fractures secondary to CPR-complicates care, management, recovery, and prognosis Total clinical time spent by myself addressing the patient's medical issues, reviewing all of his data, and collaborating with patient's care team: 75 minutes Charges/Coding Visit Charges Inpatient E&M: 41722 Init Hosp L3
[2025-01-04] MEDS: fentaNYL drip 100 ML 15 MCG CONT INF (18:51)
[2025-01-04] MEDS: Atorvastatin Calcium 20 MG Tablet NG (20:58)
[2025-01-04] MEDS: Vancomycin HCl 1,250 MG in 0.9% Normal Saline (250mL Bag) 250 ML 167 MG IV (20:59)
[2025-01-04] MEDS: Chlorhexidine 15 ML PO (21:20)
[2025-01-04] MEDS: DOPamine IV 800 MG/250 ML IV.SOLN. 70.9 MG CONT INF (23:00)
[2025-01-04] MEDS: Insulin Lispro 100 UNIT/ML INSULN.PEN SC (23:16)
[2025-01-04] MEDS: Acetaminophen 650 MG/20 ML UDC 1000 MG GT (23:16)
[2025-01-04 23:24] LABS: Bedside Glucose 150 mg/dL (74-106)
[2025-01-04 23:58] LABS: Troponin T High Sens 4 HR 75 ng/L (<=22)
[2025-01-04 23:59] LABS: Lactic Acid 2.2 mmol/L (0.0-2.0)
[2025-01-05] VITALS (71 sets, daily range): BP systolic 84–121; BP diastolic 48–76; PULSE 92–110; RESP 16–27; TEMP 37.7–38.8; O2SAT 88–98; BMI 41.8
[2025-01-05] MEDS: Amiodarone 360 MG in Dextrose 5% Viaflo Bag 192.8 ML 16.7 MG CONT INF ×3 (00:26→20:18)
[2025-01-05] MEDS: 0.9% Saline Lock 10 ML Syringe IV ×4 (00:26→16:24)
[2025-01-05] MEDS: Ipratropium/Albuterol Sulfate 3 ML AMPUL.NEB INHALATION ×4 (01:25→19:05)
[2025-01-05] MEDS: Propofol 10MG/Ml 1,000 MG/100 ML Bottle 16.8 MG CONT INF (02:00)
[2025-01-05] MEDS: CHLORHEXIDINE GLUC 2% CLOTH 1 EACH TOWELETTE TOPICAL (02:24)
[2025-01-05] MEDS: DOPamine IV 800 MG/250 ML IV.SOLN. 70.9 MG CONT INF (02:51)
[2025-01-05] MEDS: fentaNYL drip 100 ML 10 MCG CONT INF (03:25)
[2025-01-05] MEDS: TITRATION PARAMETER CHANGE 1 EACH IV (03:25)
[2025-01-05 03:29] LABS: Reflex Lactate? Y
[2025-01-05 03:37] LABS: Absolute Neutrophil Count 16.9 X10^3/uL (2.0-7.7); Basophil# 0.05 X10^3/uL; Basophil% 0.2 % (0-1); Eosinophil# 0.07 X10^3/uL; Eosinophils% 0.3 % (0-5); Hematocrit 40.6 % (40-54); Hemoglobin 12.8 g/dL (13.0-16.5); Mean Corp Hgb Conc 31.5 g/dL (32-36); Mean Corpuscular Volume 79.5 fL (80-94); Mean Platelet Vol. 9.8 fl (6.2-12.0); Monocyte# 1.74 X10^3/uL; Monocyte% 8.7 % (0-10); NRBC Flagged by Analyzer 0 % (0-5); Neutrophil # 16.89 X10^3/uL (2.7-7.7); Neutrophil % 84.2 % (47-70); POSITIVE DIFFERENTIAL YES; Platelet Count 245 K/mm3 (150-450); RBC Distribution Width CV 15.9 % (11.6-14.6); RBC Distribution Width SD 45.7 fl (35.1-43.9); Red Blood Count 5.11 M/mm3 (4.6-6.2); White Blood Count 20.1 K/mm3 (4.4-11.0)
[2025-01-05 03:40] LABS: Differential Indicated SCAN CRITERIA MET
[2025-01-05] MEDS: Vancomycin HCl 1,250 MG in 0.9% Normal Saline (250mL Bag) 250 ML 167 MG IV ×3 (04:21→20:16)
[2025-01-05 04:58] LABS: Differential Comment SCANNED
--- NOTE | 2025-01-05 05:00 | RAD_ITS ---
PROCEDURE: CHEST 1 VIEW (PORTABLE) 01/05/2025 REASON FOR EXAM: RESPIRATORY FAILURE TECHNIQUE: Frontal view of the chest. COMPARISON: 01/04/2025 FINDINGS: Endotracheal tube again seen, position appears satisfactory. Nasogastric tube with side port and tip below the diaphragm and tip now at the area of the antrum. A left-sided PICC line with tip projecting to the area of the superior cavoatrial junction now seen. Low appearing lung volumes. There has been interval clearing/improvement with mostly resolved ill-defined previously identified opacities with some mild patchy opacities remaining toward the mid to lower lung. Some retrocardiac atelectasis suspected. RAD/Chest 1 View (Portable) IMPRESSION: Endotracheal tube again seen, position appears satisfactory. Nasogastric tube with side port and tip below the diaphragm and tip now at the area of the antrum. A left-sided PICC line with tip projecting to the area of the superior cavoatri al junction now seen. Low appearing lung volumes. There has been interval clearing/improvement with mostly resolved ill-defined p reviously identified opacities with some mild patchy opacities remaining toward the mid to lower lung. Some retrocardiac atel ectasis suspected. Reading Location: [id number]
[2025-01-05] MEDS: Insulin Lispro 100 UNIT/ML INSULN.PEN SC (05:21)
[2025-01-05 05:35] LABS: Allen Test Positive; Base Excess -6 mmol/L (-2 to +2); Bicarbonate 20.3 mmol/L (22-26); Blood Gas Specimen Type ART; Mode AC; O2 Delivery Device Adult Vent; PEEP 8; PO2 88 mmHG (75-100); RR 16; SITE L Radial; SO2 96 % (95-99); Total Carbon Dioxide 22 mmol/L; pCO2 42.2 mmHg (35-45); pH 7.29 (7.35-7.45)
[2025-01-05 05:44] LABS: Bedside Glucose 157 mg/dL (74-106)
[2025-01-05 06:02] LABS: ALB/GLOB Ratio 1.2 RATIO (0.9-2.4); AST(SGOT) 87 U/L (<=37); Alanine Aminotransfer ALT/SGPT 107 U/L (<=46); Albumin, Serum 3.3 g/dL (3.5-5.0); Alkaline Phosphatase 77 U/L (40-129); Anion Gap 14 (5-15); BUN 31 mg/dL (4-19); BUN/Creat Ratio 21.6 RATIO (10-20); Calcium,Total 7.9 mg/dL (7.6-11.0); Carbon Dioxide 17.8 mmol/L (21.0-32.0); Chloride 104 mmol/L (98-108); Creatinine, Serum 1.41 mg/dL (0.70-1.20); EST Glomerular Filtration Rate 58 (>60); Estimated Creatinine Clearance 75.41 ml/min (50-250); Globulin 2.7 g/dL (2.2-4.2); Glucose 168 mg/dL (70-99); Magnesium 1.7 mg/dL (1.5-2.2); Phosphorus 3.8 mg/dL (2.7-4.5); Potassium 4.4 mmol/L (3.3-5.1); Protein, Total 6.1 g/dL (5.9-8.4); Sodium Level 136 mmol/L (133-145); Total Bilirubin 0.74 mg/dL (0.00-1.30)
[2025-01-05] MEDS: Piperacil/Tazobactam 3.375 GM in 0.9% Normal Saline (50mL MB+) 50 ML IV ×3 (06:03→22:09)
[2025-01-05] MEDS: 0.9% Normal Saline (1000mL) 1,000 ML 100 ML IV (06:33)
[2025-01-05] MEDS: DOPamine IV 800 MG/250 ML IV.SOLN. 72 MG CONT INF (06:33)
[2025-01-05] MEDS: Propofol 10MG/Ml 1,000 MG/100 ML Bottle 15.4 MG CONT INF (07:40)
--- NOTE | 2025-01-05 08:43 | PCM.PN.TICU ---
Objective Data Objective Data Vital Signs: Vital Signs Last response Temperature 37.8 C H 01/05/25 07:00 Temperature Source Core 01/05/25 07:00 Pulse Rate 99 01/05/25 07:10 Pulse Strength Weak (1+) 01/04/25 20:18 Respiratory Rate 16 01/05/25 07:10 Respiratory Effort Normal, Non-Labored, Mechanically Ventilated 01/05/25 03:53 Respiratory Depth Normal 01/05/25 03:53 Respiratory Pattern Normal 01/05/25 07:10 Blood Pressure 103/58 L 01/05/25 07:00 Blood Pressure Mean 73 01/05/25 07:00 Blood Pressure Source Monitor 01/05/25 07:00 Blood Pressure Position Semi-Fowlers 01/05/25 07:00 Blood Pressure Location Right Arm 01/05/25 07:00 Pulse Ox 97 01/05/25 07:10 Oxygen Delivery Method Mechanical Ventilator 01/05/25 07:00 Fraction of Inspired Oxygen (FIO2) 40 01/05/25 07:10 I&O: I&O Last 24 Hours 01/04/25 01/04/25 01/05/25 11:59 23:59 11:59 Intake Total 3261.14 / 6633.27 3106.11 / 6633.27 2243.06 / 2243.06 Output Total 775 / 775 375 / 375 Balance 3261.14 / 5858.27 2331.11 / 5858.27 1868.06 / 1868.06 I&O: Total Stay 01/04/25 05:43 thru 01/05/25 07:00 Intake Total 8610.31 Output Total 1150 Balance 7460.31 Current Meds Ordered / Administered: Current meds ordered / Administered Generic Name Dose Route Start Last Admin Trade Name Freq PRN Reason Stop Dose Admin Acetaminophen 650 mg 01/05/25 07:56 Acetaminophen 650 Mg/20 Ml Udc GT Q6H PRN PRN Pain 1-10 or Fever Albuterol/Ipratropium 3 ml 01/04/25 09:33 01/05/25 07:10 Ipratropium/Albuterol Sulfate 3 Ml Ampul.Neb INHALATION 3 ml Q6H.RT ROLANDO Administration Atenolol 50 mg 01/04/25 22:00 01/04/25 21:03 Atenolol 50 Mg Tablet NG Not Given QHS ROLANDO Protocol Atorvastatin Calcium 20 mg 01/04/25 22:00 01/04/25 20:58 Atorvastatin Calcium 20 Mg Tablet NG 20 mg QHS ROLANDO Administration Chlorhexidine Gluconate 15 ml 01/04/25 22:00 01/04/25 21:20 Chlorhexidine 15 Ml PO 15 ml BID ROLANDO Administration Chlorhexidine Gluconate 1 each 01/05/25 10:00 01/05/25 02:24 Chlorhexidine Gluc 2% Cloth 1 Each Towelette TOPICAL 1 each DAILY ROLANDO Administration Enoxaparin Sodium 40 mg 01/04/25 10:00 01/04/25 11:02 Enoxaparin 40 Mg/0.4 Ml Syringe SC 40 mg DAILY ROLANDO Administration Glucagon 1 mg 01/04/25 09:33 Glucagon 1 Mg/Ml Syringe IM X1 PRN HYPOGLYCEMIA Protocol Fentanyl 100 mls @ 5 mls/hr 01/04/25 06:00 01/05/25 07:00 CONT INF 100 mcg/hr UD ROLANDO 10 mls/hr Titration Protocol 50 MCG/HR Propofol 1,000 mg in 100 mls @ 7.68 mls/hr 01/04/25 06:00 01/05/25 07:00 Diprivan CONT INF 20 mcg/kg/min .Q12H ROLANDO 15.4 mls/hr Titration Protocol 10 MCG/KG/MIN Sodium Chloride 1,000 mls @ 100 mls/hr 01/04/25 09:33 01/05/25 06:33 IV 100 mls/hr .Q10H ROLANDO Administration Piperacillin Sod/Tazobactam 50 mls @ 12.5 mls/hr 01/04/25 14:00 01/05/25 06:03 Sod 3.375 gm/ Sodium Chloride IV 12.5 mls/hr Q8 ROLANDO Administration Vancomycin IV-PHARMACY TO DOSE 500 mls @ 250 mls/hr 01/04/25 09:33 1 each/ Sodium Chloride IV X1 PRN Rx to Dose Protocol Pantoprazole Sodium 40 mg/ 110 mls @ 330 mls/hr 01/04/25 10:00 01/04/25 21:21 Sodium Chloride IV Infused Q12 ROLANDO Infusion Dextrose 250 mls @ 0 mls/hr 01/04/25 09:33 Dextrose 10%-Water IV .Q0M PRN HYPOGLYCEMIA Protocol As Directed Vancomycin HCl 1,250 mg/ 275 mls @ 167 mls/hr 01/04/25 21:00 01/05/25 06:03 Sodium Chloride IV Infused Q8H ROLANDO Infusion Dopamine HCl/Dextrose 800 mg in 250 mls @ 12 mls/hr 01/04/25 13:00 01/05/25 07:00 CONT INF 30 mcg/kg/min .[id number] ROLANDO 72 mls/hr Titration Protocol 5 MCG/KG/MIN Amiodarone HCl 360 mg/ 200 mls @ 16.667 mls/hr 01/05/25 08:00 Dextrose CONT INF .Q12H ROLANDO 0.5 MG/MIN Insulin Human Lispro 0 unit 01/04/25 12:00 01/05/25 05:21 Insulin Lispro 100 Unit/Ml Insuln.Pen SC 2 u Q6 ROLANDO Administration Protocol Ondansetron HCl 4 mg 01/04/25 09:33 Ondansetron 4 Mg/2 Ml Vial IV Q8H PRN PRN NAUSEA/VOMITING Sodium Chloride 10 - 40 ml 01/04/25 09:39 01/05/25 00:26 0.9% Saline Lock 10 Ml Syringe IV 30 ml UD PRN Administration SALINE FLUSH Vancomycin Protocol 1 lab 01/05/25 11:30 Vancomycin Trough/Random Due MC 01/05/25 13:30 DAILY ROLANDO Lab / Micro Data 01/05/25 03:20 01/05/25 03:20 Labs: Laboratory Results - last 24 hr 01/04/25 05:47: Diff Path Review Reviewed 01/04/25 07:50: Troponin T Hi Sens 2 Hr 136 H* 01/04/25 14:12: POC Glucose 154 H 01/04/25 16:30: TSH 1.080 01/04/25 16:35: POC Glucose 151 H 01/04/25 23:06: POC Glucose 150 H 01/04/25 23:23: Lactic Acid 2.2 H*, Troponin T Hi Sens 4Hr 75 H* 01/05/25 03:20: WBC 20.1 H, RBC 5.11, Hgb 12.8 L, Hct 40.6, MCV 79.5 L D, MCH 25.0 L, MCHC 31.5 L D, RDW Std Deviation 45.7 H, RDW Coeff of Nash 15.9 H, Plt Count 245, MPV 9.8, Immature Gran % (Auto) 0.600, Neut % (Auto) 84.2 H, Lymph % (Auto) 6.0 L, [place] % (Auto) 8.7, Eos % (Auto) 0.3, Baso % (Auto) 0.2, Absolute Neuts (auto) 16.9 H, Absolute Lymphs (auto) 1.20, Nucleated RBC % 0, Differential Comment SCANNED, Sodium 136, Potassium 4.4, Chloride 104, Carbon Dioxide 17.8 L, Anion Gap 14, BUN 31 H, Creatinine 1.41 H, Estim Creat Clear Calc 75.41, Est GFR (MDRD) Non-Af 58 L, BUN/Creatinine Ratio 21.6 H, Glucose 168 H, Calcium 7.9, Phosphorus 3.8, Magnesium 1.7, Total Bilirubin 0.74, AST 87 H, ALT 107 H, Alkaline Phosphatase 77, Total Protein 6.1, Albumin 3.3 L, Globulin 2.7, Albumin/Globulin Ratio 1.2 01/05/25 05:20: POC Glucose 157 H Micro: Microbiology 01/04/25 06:18 Sputum, Induced/Lukens Gram Stain - Final 01/04/25 10:30 Interface Orders Gastric Occult Blood - Final Occult Blood Positive 01/04/25 06:03 Mucosa - Nose SARS-CoV-2, Influenza & RSV (PCR) - Final ABG Data ABG results: ABG 01/05/25 05:30 Specimen Type ART Sample Site L Radial pH 7.29 L Bicarbonate Actual 20.3 L Total CO2 22 Base Excess -6 L O2 Saturation 96 O2 % 50.0 ABG pCO2 42.2 ABG pO2 88 Drsis Test Positive Respiration Rate 16 O2 Delivery Device Adult Vent Vent Mode AC Tidal Volume 500.0 POC PEEP 8 Imaging Radiology Impression Echocardiogram 01/04/25 09:33 Interpretation Summary Severe LV systolic dysfunction with generalized hypokinesis. Estimated LVEF 20 to 25%. Stage I diastolic dysfunction. Cannot exclude LV noncompaction. Mild tricuspid valve insufficiency. Abnormal hepatic architecture. Consider ultrasound of the liver for further evaluation. The study was technically difficult. Ordering Physician: Mel Malhotra Referring Physician: Wing Calderón Performed By: Gosia Bland RDCS Chest X-Ray 01/05/25 05:00 IMPRESSION: Endotracheal tube again seen, position appears satisfactory. Nasogastric tube with side port and tip below the diaphragm and tip now at the area of the antrum. A left-sided PICC line with tip projecting to the area of the superior cavoatrial junction now seen. Low appearing lung volumes. There has been interval clearing/improvement with mostly resolved ill-defined previously identified opacities with some mild patchy opacities remaining toward the mid to lower lung. Some retrocardiac atelectasis suspected. Reading Location: [facility] Assessment and Plan . Assessment and plan: Pt seen and examined. NSVT. Tm 101.3 overnight. Great UOP. ~300cc reddish brown output from OGT. Prop @ 20 Fent @ 100 Dopa @ 30 Amio @ 0.5 16 500 8 40 PE: General: Well developed, intubated HEENT: anicteric Sclera; + ETT, nl nose; supple neck, no masses Cardiovascular: Tachy; +S1/S2; No murmurs, rubs, gallops; +2 nonpitting generalized edema Respiratory: clear anterior breath sounds; diminished lateral bases; no sig crackles, wheezes, or rhonchi Abdominal: Non-tender; Non distended; hypoBS x 4; No Hepatosplenomegaly Extremities: Warm, well perfused; No clubbing, cyanosis; capillary refill > 2 sec Neurological: sedated but awakens very easily and responds appropriately to stimuli including giving thumbs up when asked A/P: #Acute respiratory failure with hypoxia and hypercapnia #Shock, unspecified #VF cardiac arrest #HFrEF with severely reduced EF 10-15% #Mild non-obstructive CAD #B/L PNA vs pneumonitis likely 2* aspiration #Rt anterior 4th & 5th rib fractures #?GIB #CODI #Lactic acidosis #Acute encephalopathy #Elevated LFTs #Morbid obesity #HTN #DLD -Cont MV; settings reviewed/adjusted; cont weaning PEEP/FiO2; proceed with SAT +/- SBTs as tolerated -Remains on very high dopamine gtt; will adjust sedation strategy and discuss with cardiology re: addition of other inovasopressors -Cont amio gtt; monitor for further arrhythmias -SP cardiac cath with findings as noted above; F/U TTE; cont medical management per cardiology -Assess neuro status off sedation; at this time appears fully neurologically intact; further workup/prognostication as guided by exam -DC & avoid IVF given severely reduced EF; cont strict I/Os -Cont emp IV ABx- vanc/Zosyn- pending infectious w/u; check nasal MRSA and if neg can likely stop vanc if no GPC on cultures after 48h; if no risk factors for PsA or other hospital associated organisms can likely de-esc to Unsayn or Augmentin at the 48h mel as well -No overt bleeding but on-going significant reddish-brown output from OGT; keep on LIWS; cont PPI IV BID; monitor blood counts -Minimally elevated LFTs; cont to monitor NPO LMWH --> switch to heparin, PPI Guarded prognosis Critical Care Time: 50 min The entirety of this encounter was done via Telemedicine
--- NOTE | 2025-01-05 08:51 | PN.HOSP_ITS ---
Reason for Visit Reason for Visit: Diagnoses Cardiac arrest, cause unspecified (01/04/25) Ventricular fibrillation (01/04/25) Other ill-defined heart diseases (01/04/25) Pneumonitis due to inhalation of food and vomit (01/04/25) Acute respiratory failure with hypoxia (01/04/25) Acute respiratory failure with hypercapnia (01/04/25) Subjective Subjective Patient was seen and examined today, he follows commands, he is under light sedation on the ventilator. Patient's echo cardiogram yesterday showed a 25% EF, his cardiac catheterization showed nonocclusive coronary disease with an EF of 10 to 15%. Patient is still on dopamine for blood pressure support. FiO2 on the vent is 0.35 Objective Data Objective Data Vital Signs: Vital Signs Temp Pulse Resp BP Pulse Ox O2 Del Method FiO2 100.1 F H 105 H 16 105/62 97 Mechanical Ventilator 40 01/05/25 07:00 01/05/25 08:45 01/05/25 07:10 01/05/25 08:45 01/05/25 07:10 01/05/25 07:00 01/05/25 07:10 Oxygen Delivery Method Mechanical Ventilator Weight: 128 kg Body Mass Index (BMI) 41.8 Intake & Output: Intake and Output for Last 24 Hours 01/03/25 01/04/25 01/05/25 23:59 23:59 23:59 Intake Total 6367.25 / 6633.27 2392.50 / 2392.50 Output Total 775 / 775 375 / 375 Balance 5592.25 / 5858.27 / Lab / Micro Data 01/05/25 03:20 01/05/25 03:20 Labs: Laboratory Results - last 24 hr 01/04/25 05:47: Diff Path Review Reviewed 01/04/25 14:12: POC Glucose 154 H 01/04/25 16:30: TSH 1.080 01/04/25 16:35: POC Glucose 151 H 01/04/25 23:06: POC Glucose 150 H 01/04/25 23:23: Lactic Acid 2.2 H*, Troponin T Hi Sens 4Hr 75 H* 01/05/25 03:20: WBC 20.1 H, RBC 5.11, Hgb 12.8 L, Hct 40.6, MCV 79.5 L D, MCH 25.0 L, MCHC 31.5 L D, RDW Std Deviation 45.7 H, RDW Coeff of Nash 15.9 H, Plt Count 245, MPV 9.8, Immature Gran % (Auto) 0.600, Neut % (Auto) 84.2 H, Lymph % (Auto) 6.0 L, [place] % (Auto) 8.7, Eos % (Auto) 0.3, Baso % (Auto) 0.2, Absolute Neuts (auto) 16.9 H, Absolute Lymphs (auto) 1.20, Nucleated RBC % 0, Differential Comment SCANNED, Sodium 136, Potassium 4.4, Chloride 104, Carbon Dioxide 17.8 L, Anion Gap 14, BUN 31 H, Creatinine 1.41 H, Estim Creat Clear Calc 75.41, Est GFR (MDRD) Non-Af 58 L, BUN/Creatinine Ratio 21.6 H, Glucose 168 H, Calcium 7.9, Phosphorus 3.8, Magnesium 1.7, Total Bilirubin 0.74, AST 87 H, A LT 107 H, Alkaline Phosphatase 77, Total Protein 6.1, Albumin 3.3 L, Globulin 2.7, Albumin/Globulin Ratio 1.2 01/05/25 05:20: POC Glucose 157 H Micro: Microbiology 01/04/25 06:18 Sputum, Induced/Lukens Gram Stain - Final 01/04/25 10:30 Interface Orders Gastric Occult Blood - Final Occult Blood Positive 01/04/25 06:03 Mucosa - Nose SARS-CoV-2, Influenza & RSV (PCR) - Final ABG Data ABG results: ABG 01/05/25 05:30 Specimen Type ART Sample Site L Radial pH 7.29 L Bicarbonate Actual 20.3 L Total CO2 22 Base Excess -6 L O2 Saturation 96 O2 % 50.0 ABG pCO2 42.2 ABG pO2 88 Driss Test Positive Respiration Rate 16 O2 Delivery Device Adult Vent Vent Mode AC Tidal Volume 500.0 POC PEEP 8 Radiography Diagnostic Testing: Radiology Impression Echocardiogram 01/04/25 09:33 Interpretation Summary Severe LV systolic dysfunction with generalized hypokinesis. Estimated LVEF 20 to 25%. Stage I diastolic dysfunction. Cannot exclude LV noncompaction. Mild tricuspid valve insufficiency. Abnormal hepatic architecture. Consider ultrasound of the liver for further evaluation. The study was technically difficult. Ordering Physician: Torey Malhotra Referring Physician: Wing Calderón Performed By: Gosia Bland RDCS Chest X-Ray 01/05/25 05:00 IMPRESSION: Endotracheal tube again seen, position appears satisfactory. Nasogastric tube with side port and tip below the diaphragm and tip now at the area of the antrum. A left-sided PICC line with tip projecting to the area of the superior cavoatrial junction now seen. Low appearing lung volumes. There has been interval clearing/improvement with mostly resolved ill-defined previously identified opacities with some mild patchy opacities remaining toward the mid to lower lung. Some retrocardiac atelectasis suspected. Reading Location: [facility] Physical Exam Const alert, no apparent distress and healthy appearing General Appearance: cooperative, well kempt and well developed Orientation / Consciousness: awake HEENT normocephalic, head/scalp atraumatic and moist oral mucous membranes Eyes PERRL, EOMs intact bilaterally and conjunctivae normal Neck supple, no JVD, thyroid normal and no carotid bruits General: trachea midline Resp normal respiratory effort, no retractions and clear to auscultation bilaterally Auscultation: Negative for rales, rhonchi or wheezes Cardio regular rate, regular rhythm, S1 normal heart sound, S2 normal heart sound, no murmurs, no rub and no gallops GI normal to inspection, nondistended, normoactive bowel sounds, soft to palpation, non-tender and non-distended Extremity no clubbing, cyanosis or edema Skin no rashes or lesions noted General Skin Exam: no breakdown Neuro CN's II-XII intact bilaterally, moves all extremities, no focal motor deficits and no sensory deficits noted Neuro Narrative: Patient is slightly sedated and on the ventilator Sensorium / Orientation: awake and alert Psych Psych Narrative: Patient is lightly sedated and on the ventilator Assessment & Plan Assessment/Plan (1) Cardiac arrest with ventricular fibrillation: PLAN: Plan #1 ventricular fibrillation with cardiac arrest-patient remains on IV amiodarone, cardiology is participating in his care, patient has nonocclusive coronary disease on his catheterization #2 acute combined respiratory failure-patient remains on the ventilator at this time, critical care will see the patient via tele pulmonology #3 bilateral infiltrates-probable aspiration pneumonia-patient remains on Zosyn and vancomycin, chest x-ray appears improved today #4 essential hypertension-patient's blood pressure will be monitored, he currently requires pressor support with dopamine #5 right anterior 4th and 5th rib fractures secondary to CPR-complicates care, management, recovery, and prognosis #6 elevated creatinine-patient's labs will be monitored, due to his low EF fluid administration would be complicated, cardiology is participating in his care Total clinical time spent by myself addressing the patient's medical issues, reviewing all of his data, and collaborating with patient's care team: 35 minutes Charges/Coding Visit Charges Inpatient E&M: 79537 Subs Hosp L2
[2025-01-05] MEDS: Chlorhexidine 15 ML PO ×2 (08:52→20:16)
[2025-01-05] MEDS: DOPamine IV 800 MG/250 ML IV.SOLN. 66 MG CONT INF (10:08)
[2025-01-05] MEDS: Acetaminophen 650 MG/20 ML UDC GT ×3 (10:09→21:42)
[2025-01-05] MEDS: Pantoprazole Sodium 40 MG in 0.9% Normal Saline (100mL MB+) 100 ML 330 MG IV ×2 (10:13→21:38)
--- NOTE | 2025-01-05 10:20 | CASEMGMT ---
HILARY CM Face to Face with for initial transition planning/care coordination assessment as patient is currently intubated. RN CM introduced self and role at [facility]. , Tammie, willing to participate in assessment and is able to answer all questions appropriately. Care providers, pharmacy, and demographics verified. Strata: 1 PCP: Stephane Specialists: none Preferred Pharmacy: [facility] Insurance: [email or web address] Prescription Benefit: yes Living Will/HPOA: none LNOK: Living Arrangements: Patient lives with in a single story home with 2 steps to enter. Patient was independent at home prior to current illness. Transportation: self, DME/HHC: Patient has access to shower chair, raised toilet, walker, and rollator. No previous HHC or SNF. would like [employer] for DME if needed. wishes for patient to discharge home will monitor for needs at discharge pending course of treatment and progress with therapy. states she has no further needs or concerns at this time. CM to follow for discharge planning needs that may arise. Disposition Plan: TBD, pending course of treatment and progress with therapy. Uyen RENEE, RN, CM
[2025-01-05] MEDS: Dexmedetomidine 1,000 mcg in 0.9% NS 240 mL 16 MCG CONT INF (10:25)
--- NOTE | 2025-01-05 10:39 | PN.CARD_ITS ---
Subjective Subjective Stable overnight but continues requiring dopamine for hemodynamic support. Febrile. Making urine. Following commands as per RN. This morning being switched to Precedex from propofol for sedation. Objective Data Vital Signs: Vital Signs Temp Pulse Resp BP Pulse Ox O2 Del Method FiO2 100.1 F H 102 H 16 93/61 93 Mechanical Ventilator 40 01/05/25 07:00 01/05/25 10:00 01/05/25 09:02 01/05/25 10:00 01/05/25 09:02 01/05/25 08:00 01/05/25 09:02 Oxygen Delivery Method Mechanical Ventilator Weight: 282 lb 3.067 oz Body Mass Index (BMI) 41.8 Intake & Output: Intake and Output for Last 24 Hours 01/03/25 01/04/25 01/05/25 23:59 23:59 23:59 Intake Total 6367.25 / 6633.27 3032.45 / 3032.45 Output Total 775 / 775 760 / 760 Balance 5592.25 / 5858.27 2272.45 / 2272.45 Lab / Micro Data 01/05/25 03:20 01/05/25 03:20 Labs: Laboratory Results - last 24 hr 01/04/25 05:47: Diff Path Review Reviewed 01/04/25 14:12: POC Glucose 154 H 01/04/25 16:30: TSH 1.080 01/04/25 16:35: POC Glucose 151 H 01/04/25 23:06: POC Glucose 150 H 01/04/25 23:23: Lactic Acid 2.2 H*, Troponin T Hi Sens 4Hr 75 H* 01/05/25 03:20: WBC 20.1 H, RBC 5.11, Hgb 12.8 L, Hct 40.6, MCV 79.5 L D, MCH 25.0 L, MCHC 31.5 L D, RDW Std Deviation 45.7 H, RDW Coeff of Nash 15.9 H, Plt Count 245, MPV 9.8, Immature Gran % (Auto) 0.600, Neut % (Auto) 84.2 H, Lymph % (Auto) 6.0 L, [place] % (Auto) 8.7, Eos % (Auto) 0.3, Baso % (Auto) 0.2, Absolute Neuts (auto) 16.9 H, Absolute Lymphs (auto) 1.20, Nucleated RBC % 0, Differential Comment SCANNED, Sodium 136, Potassium 4.4, Chloride 104, Carbon Dioxide 17.8 L, Anion Gap 14, BUN 31 H, Creatinine 1.41 H, Estim Creat Clear Calc 75.41, Est GFR (MDRD) Non-Af 58 L, BUN/Creatinine Ratio 21.6 H, Glucose 168 H, Calcium 7.9, Phosphorus 3.8, Magnesium 1.7, Total Bilirubin 0.74, AST 87 H, A LT 107 H, Alkaline Phosphatase 77, Total Protein 6.1, Albumin 3.3 L, Globulin 2.7, Albumin/Globulin Ratio 1.2 01/05/25 05:20: POC Glucose 157 H Micro: Microbiology 01/04/25 06:18 Sputum, Induced/Lukens Gram Stain - Final 01/04/25 06:18 Sputum, Induced/Lukens Respiratory Culture - Preliminary Appears to be normal respiratory citlali. Further studies to follow. 01/04/25 10:30 Interface Orders Gastric Occult Blood - Final Occult Blood Positive 01/04/25 06:03 Mucosa - Nose SARS-CoV-2, Influenza & RSV (PCR) - Final ABG Data ABG results: ABG 01/05/25 05:30 Specimen Type ART Sample Site L Radial pH 7.29 L Bicarbonate Actual 20.3 L Total CO2 22 Base Excess -6 L O2 Saturation 96 O2 % 50.0 ABG pCO2 42.2 ABG pO2 88 Driss Test Positive Respiration Rate 16 O2 Delivery Device Adult Vent Vent Mode AC Tidal Volume 500.0 POC PEEP 8 Cardiology Labs/Tests 01/04/25 23:23: Lactic Acid 2.2 H* 01/05/25 03:20: WBC 20.1 H, RBC 5.11, Hgb 12.8 L, Hct 40.6, MCV 79.5 L D, MCH 25.0 L, MCHC 31.5 L D, Plt Count 245, MPV 9.8, Immature Gran % (Auto) 0.600, N eut % (Auto) 84.2 H, Lymph % (Auto) 6.0 L, [place] % (Auto) 8.7, Eos % (Auto) 0.3, Baso % (Auto) 0.2, Absolute Neuts (auto) 16.9 H, Nucleated RBC % 0, Sodium 136, Potassium 4.4, Chloride 104, Carbon Dioxide 17.8 L, Anion Gap 14, BUN 31 H, C reatinine 1.41 H, Est GFR (MDRD) Non-Af 58 L, BUN/Creatinine Ratio 21.6 H, G lucose 168 H, Calcium 7.9, Phosphorus 3.8, Magnesium 1.7, Total Bilirubin 0.74 01/05/25 05:30: pH 7.29 L, Bicarbonate Actual 20.3 L, Base Excess -6 L, O2 Saturation 96, ABG pCO2 42.2, ABG pO2 88, Driss Test Positive Rhythm: EKG: ECHO: Stress Test: Cardiac Cath: PCI: CT Surgery: Holter monitor: EPS: PPM: CXR: Chest CT Scan: Radiography Diagnostic Testing: Radiology Impression Echocardiogram 01/04/25 09:33 Interpretation Summary Severe LV systolic dysfunction with generalized hypokinesis. Estimated LVEF 20 to 25%. Stage I diastolic dysfunction. Cannot exclude LV noncompaction. Mild tricuspid valve insufficiency. Abnormal hepatic architecture. Consider ultrasound of the liver for further evaluation. The study was technically difficult. Ordering Physician: Torey Malhotra Referring Physician: Wing Calderón Performed By: Gosia Bland RDCS Chest X-Ray 01/05/25 05:00 IMPRESSION: Endotracheal tube again seen, position appears satisfactory. Nasogastric tube with side port and tip below the diaphragm and tip now at the area of the antrum. A left-sided PICC line with tip projecting to the area of the superior cavoatrial junction now seen. Low appearing lung volumes. There has been interval clearing/improvement with mostly resolved ill-defined previously identified opacities with some mild patchy opacities remaining toward the mid to lower lung. Some retrocardiac atelectasis suspected. Reading Location: [facility] Physical Exam Narrative Sedated on ventilator. Heart sounds 1 and 2 noted. Chest with decreased breath sounds at bilateral bases. 1+ bilateral ankle edema. Assessment & Plan Assessment/Plan (1) Cardiac arrest with ventricular fibrillation: PLAN: No significant angiographic coronary artery disease on coronary angiography. Severely depressed LV systolic function. Nonischemic cardiomyopathy versus transient stunning with sepsis syndrome. Continue on amiodarone for now. (2) Acute sepsis: PLAN: Pneumonia. On antibiotics. Continue to manage as per critical care. (3) Shock circulatory: PLAN: Likely combination distributive septic and cardiogenic shock. Continue hemodynamic support with dopamine. Try to wean off. May try low-dose Levophed if needed. Also will consider IABP depending on clinical progress. (4) Left ventricular systolic dysfunction (LVSD): PLAN: Status post V-fib arrest. Nonischemic cardiomyopathy versus transient stunning in the setting of acute sepsis. Continue to monitor. Will start beta-blockers, ACEI and Aldactone once sepsis resolves and off vasopressor agents. (5) Acute respiratory failure with hypoxia and hypercapnia: PLAN: On ventilator.
[2025-01-05] MEDS: Vancomycin Trough/Random Due 1 LAB MC (11:05)
[2025-01-05 11:19] LABS: Hemoglobin A1c 6.1 % (<=5.6)
--- NOTE | 2025-01-05 12:50 | NURSING ---
pt very alert prior to assessment. with placement of hover mat, pt became extremely agitated, fighting staff and grabbing for OET. He cont to cough/gag and grab for OET despite reassurance from this RN and other [facility] staff. meds increased. Dr. Vásquez notified. orders recd
[2025-01-05] MEDS: fentaNYL drip 100 ML 20 MCG CONT INF ×3 (12:58→23:09)
[2025-01-05 13:44] LABS: Vancomycin, Trough Level 16.2 ug/mL (5.0-15.0)
--- NOTE | 2025-01-05 13:50 | PCM.RX.CS ---
Consult Antibiotic Management Pharmacy has been consulted to manage selected antibiotic: Vancomycin Type of Intervention Type of Consult: Follow-up Suspected Infection Suspected Infection: Sepsis Prior Doses of Antibiotics Prior Doses of Antibiotics Received/Current Regimen: Vancomycin 1250 mg Q12H last dose given 01/04/25 @ 0421 Labs Labs: Sodium 136 mmol/L (133-145) 01/05/25 03:20 Potassium 4.4 mmol/L (3.3-5.1) 01/05/25 03:20 Chloride 104 mmol/L (98-108) 01/05/25 03:20 Carbon Dioxide 17.8 mmol/L (21.0-32.0) L 01/05/25 03:20 Anion Gap 14 (5-15) 01/05/25 03:20 BUN 31 mg/dL (4-19) H 01/05/25 03:20 Creatinine 1.41 mg/dL (0.70-1.20) H 01/05/25 03:20 Est GFR (MDRD) Non-Af 58 (>60) L 01/05/25 03:20 BUN/Creatinine Ratio 21.6 RATIO (10-20) H 01/05/25 03:20 Glucose 168 mg/dL (70-99) H 01/05/25 03:20 Vancomycin Trough 16.2 ug/mL (5.0-15.0) H 01/05/25 12:45 Microbiology Microbiology: Microbiology 01/05/25 10:20 Nasal Secretion MRSA (PCR) - Final 01/04/25 06:18 Sputum, Induced/Lukens Gram Stain - Final 01/04/25 06:18 Sputum, Induced/Lukens Respiratory Culture - Preliminary Appears to be normal respiratory citlali. Further studies to follow. 01/04/25 10:30 Interface Orders Gastric Occult Blood - Final Occult Blood Positive 01/04/25 06:03 Mucosa - Nose SARS-CoV-2, Influenza & RSV (PCR) - Final Dosing Weight Weight used for dosin kg Estimated Creatinine Clearance Estimated Creatinine Clearance: ~ 75 Goal Trough Goal Trough: 15-20 mcg/mL Pharmacy Plan for Drug Dosing Pharmacy Plan for Drug Dosing: Vancomycin trough = 16.2, continue current dosing, trough tomorrow d/t fluctuating renal function. Pharmacy Service will continue to monitor and adjust dosing as required. Follow-Up Labs Follow-Up Labs: Trough: Vancomycin Date/Time Labs Ordered Labs to be done on [date and time ordered]: 01/06/25 @ 8706
[2025-01-05 13:59] LABS: Bedside Glucose 129 mg/dL (74-106)
[2025-01-05] MEDS: DOPamine IV 800 MG/250 ML IV.SOLN. 42 MG CONT INF (15:17)
[2025-01-05] MEDS: Norepinephrine 8 MG in 0.9% Normal Saline (250mL Bag) 242 ML 9.4 MG CONT INF (16:01)
[2025-01-05] MEDS: Dexmedetomidine 1,000 mcg in 0.9% NS 240 mL 35.2 MCG CONT INF (16:22)
[2025-01-05 18:57] LABS: Bedside Glucose 120 mg/dL (74-106)
[2025-01-05] MEDS: Atorvastatin Calcium 20 MG Tablet NG (21:39)
[2025-01-05] MEDS: Heparin Injection (Vial) 5,000 UNIT/ML VIAL 5000 UNIT SC (21:39)
[2025-01-05 23:41] LABS: Bedside Glucose 120 mg/dL (74-106)
[2025-01-06] VITALS (45 sets, daily range): BP systolic 97–141; BP diastolic 58–83; PULSE 73–164; RESP 12–20; TEMP 36.3–37.7; O2SAT 90–100; BMI 42.7
[2025-01-06] MEDS: DOPamine IV 800 MG/250 ML IV.SOLN. 24 MG CONT INF (00:57)
[2025-01-06] MEDS: Ipratropium/Albuterol Sulfate 3 ML AMPUL.NEB INHALATION ×4 (01:20→19:45)
[2025-01-06] MEDS: Vancomycin HCl 1,250 MG in 0.9% Normal Saline (250mL Bag) 250 ML 167 MG IV ×3 (04:10→21:33)
[2025-01-06] MEDS: fentaNYL drip 100 ML 20 MCG CONT INF (04:11)
[2025-01-06] MEDS: Piperacil/Tazobactam 3.375 GM in 0.9% Normal Saline (50mL MB+) 50 ML IV ×3 (05:13→22:01)
[2025-01-06] MEDS: 0.9% Saline Lock 10 ML Syringe IV ×4 (05:13→14:30)
[2025-01-06 05:17] LABS: Absolute Lymphocyte Count 1.19 X10^3/uL (0.83-4.51); Absolute Neutrophil Count 12.7 X10^3/uL (2.0-7.7); Basophil# 0.06 X10^3/uL; Basophil% 0.4 % (0-1); Eosinophil# 0.09 X10^3/uL; Eosinophils% 0.6 % (0-5); Hematocrit 35.1 % (40-54); Hemoglobin 10.9 g/dL (13.0-16.5); Lymphocyte # 1.19 X10^3/ul (0.83-4.51); Lymphocyte % 7.8 % (19-41); Mean Corp Hgb Conc 31.1 g/dL (32-36); Mean Corpuscular Hgb 24.9 pg (27.0-32.0); Mean Corpuscular Volume 80.1 fL (80-94); Mean Platelet Vol. 9.6 fl (6.2-12.0); Monocyte# 1.11 X10^3/uL; Monocyte% 7.3 % (0-10); NRBC Flagged by Analyzer 0 % (0-5); Neutrophil # 12.73 X10^3/uL (2.7-7.7); Neutrophil % 83.1 % (47-70); Platelet Count 160 K/mm3 (150-450); RBC Distribution Width CV 16.2 % (11.6-14.6); RBC Distribution Width SD 46.7 fl (35.1-43.9); Red Blood Count 4.38 M/mm3 (4.6-6.2); White Blood Count 15.3 K/mm3 (4.4-11.0)
[2025-01-06 05:32] LABS: Bedside Glucose 117 mg/dL (74-106)
[2025-01-06 05:41] LABS: Anion Gap 8 (5-15); BUN 27 mg/dL (4-19); BUN/Creat Ratio 33.7 RATIO (10-20); Calcium,Total 7.6 mg/dL (7.6-11.0); Carbon Dioxide 21.1 mmol/L (21.0-32.0); Chloride 106 mmol/L (98-108); EST Glomerular Filtration Rate 103 (>60); Estimated Creatinine Clearance 134.59 ml/min (50-250); Glucose 195 mg/dL (70-99); Magnesium 1.9 mg/dL (1.5-2.2); Phosphorus 2.3 mg/dL (2.7-4.5); Potassium 4.1 mmol/L (3.3-5.1); Sodium Level 134 mmol/L (133-145)
[2025-01-06] MEDS: Dexmedetomidine 1,000 mcg in 0.9% NS 240 mL 16 MCG CONT INF (05:52)
[2025-01-06 07:26] LABS: Base Excess -3 mmol/L (-2 to +2); Blood Gas Specimen Type ART; Mode AC; O2 Delivery Device Adult Vent; PEEP 5; PO2 78 mmHG (75-100); RR 16; SITE L Radial; SO2 95 % (95-99); Total Carbon Dioxide 24 mmol/L; pCO2 42.8 mmHg (35-45); pH 7.34 (7.35-7.45)
[2025-01-06] MEDS: Chlorhexidine 15 ML PO (07:42)
[2025-01-06] MEDS: Amiodarone 360 MG in Dextrose 5% Viaflo Bag 192.8 ML 16.7 MG CONT INF (07:43)
--- NOTE | 2025-01-06 09:05 | PCM.PN.CARD ---
Subjective Subjective Doing well. Hemodynamically better. Levophed off. Dopamine down to 10 mcg. On CPAP trials this morning. Possible extubation this morning. Objective Data Vital Signs: Vital Signs Temp Pulse Resp BP Pulse Ox O2 Del Method FiO2 98.9 F 91 14 120/70 96 CPAP 35 01/06/25 08:30 01/06/25 08:30 01/06/25 08:30 01/06/25 08:30 01/06/25 08:30 01/06/25 08:30 01/06/25 08:30 Oxygen Delivery Method CPAP Weight: 288 lb 9.361 oz Body Mass Index (BMI) 42.7 Intake & Output: Intake and Output for Last 24 Hours 01/04/25 01/05/25 01/06/25 23:59 23:59 23:59 Intake Total 6367.25 / 6633.27 5285.28 / 5381.68 1115.84 / 1115.84 Output Total 775 / 775 2600 / 2600 950 / 950 Balance 5592.25 / 5858.27 2685.28 / 2781.68 165.84 / 165.84 Lab / Micro Data 01/06/25 05:00 01/06/25 05:00 Labs: Laboratory Results - last 24 hr 01/05/25 03:20: Hemoglobin A1c 6.1 H 01/05/25 12:45: Vancomycin Trough 16.2 H 01/05/25 13:34: POC Glucose 129 H 01/05/25 17:57: POC Glucose 120 H 01/05/25 23:22: POC Glucose 120 H 01/06/25 05:00: WBC 15.3 H, RBC 4.38 L, Hgb 10.9 L, Hct 35.1 L, MCV 80.1, MCH 24.9 L, MCHC 31.1 L, RDW Std Deviation 46.7 H, RDW Coeff of Nash 16.2 H, Plt Count 160, MPV 9.6, Immature Gran % (Auto) 0.800, Neut % (Auto) 83.1 H, Lymph % (Auto) 7.8 L, [place] % (Auto) 7.3, Eos % (Auto) 0.6, Baso % (Auto) 0.4, Absolute Neuts (auto) 12.7 H, Absolute Lymphs (auto) 1.19, Nucleated RBC % 0, Sodium 134, Potassium 4.1, Chloride 106, Carbon Dioxide 21.1, Anion Gap 8, BUN 27 H, Creatinine 0.80, Estim Creat Clear Calc 134.59, Est GFR (MDRD) Non-Af 103, BUN/Creatinine Ratio 33.7 H, Glucose 195 H, Calcium 7.6, Phosphorus 2.3 L, Magnesium 1.9 01/06/25 05:11: POC Glucose 117 H Micro: Microbiology 01/04/25 06:18 Sputum, Induced/Lukens Gram Stain - Final 01/04/25 06:18 Sputum, Induced/Lukens Respiratory Culture - Final 01/05/25 10:20 Nasal Secretion MRSA (PCR) - Final ABG Data ABG results: ABG 01/06/25 07:23 Specimen Type ART Sample Site L Radial pH 7.34 L Bicarbonate Actual 23.0 Total CO2 24 Base Excess -3 L O2 Saturation 95 O2 % 35.0 ABG pCO2 42.8 ABG pO2 78 Driss Test N/A Respiration Rate 16 O2 Delivery Device Adult Vent Vent Mode AC Tidal Volume 500.0 POC PEEP 5 Cardiology Labs/Tests 01/05/25 03:20: Hemoglobin A1c 6.1 H 01/06/25 05:00: WBC 15.3 H, RBC 4.38 L, Hgb 10.9 L, Hct 35.1 L, MCV 80.1, MCH 24.9 L, MCHC 31.1 L, Plt Count 160, MPV 9.6, Immature Gran % (Auto) 0.800, Neut % (Auto) 83.1 H, Lymph % (Auto) 7.8 L, [place] % (Auto) 7.3, Eos % (Auto) 0.6, Baso % (Auto) 0.4, Absolute Neuts (auto) 12.7 H, Nucleated RBC % 0, Sodium 134, Potassium 4.1, Chloride 106, Carbon Dioxide 21.1, Anion Gap 8, BUN 27 H, Creatinine 0.80, Est GFR (MDRD) Non-Af 103, BUN/Creatinine Ratio 33.7 H, Glucose 195 H, Calcium 7.6, Phosphorus 2.3 L, Magnesium 1.9 01/06/25 07:23: pH 7.34 L, Bicarbonate Actual 23.0, Base Excess -3 L, O2 Saturation 95, ABG pCO2 42.8, ABG pO2 78, Driss Test N/A Rhythm: EKG: ECHO: Stress Test: Cardiac Cath: PCI: CT Surgery: Holter monitor: EPS: PPM: CXR: Chest CT Scan: Physical Exam Narrative Wakes up to verbal commands. Heart sounds 1 and 2 normal. Chest clear to auscultation bilaterally. Trace ankle edema. Assessment & Plan Assessment/Plan (1) Cardiac arrest with ventricular fibrillation: PLAN: No significant angiographic coronary artery disease on coronary angiography. Severely depressed LV systolic function. Nonischemic cardiomyopathy versus transient stunning with sepsis syndrome. Continue on amiodarone for now. Switch to p.o. When patient extubated. (2) Acute sepsis: PLAN: Pneumonia. On antibiotics. Continue to manage as per critical care. (3) Shock circulatory: PLAN: Likely combination distributive septic and cardiogenic shock. Try to wean off dopamine. (4) Left ventricular systolic dysfunction (LVSD): PLAN: Status post V-fib arrest. Nonischemic cardiomyopathy versus transient stunning in the setting of acute sepsis. Continue to monitor. Will start beta-blockers, ACEI and Aldactone once sepsis resolves and off vasopressor agents. (5) Acute respiratory failure with hypoxia and hypercapnia: PLAN: On ventilator.
--- NOTE | 2025-01-06 09:21 | PCM.PN.TICU ---
Objective Data Objective Data Vital Signs: Vital Signs Last response Temperature 37.2 C 01/06/25 08:30 Temperature Source Core 01/06/25 08:30 Pulse Rate 91 01/06/25 08:30 Pulse Strength Weak (1+) 01/04/25 20:18 Respiratory Rate 14 01/06/25 08:30 Respiratory Effort Mechanically Ventilated 01/06/25 08:00 Respiratory Depth Normal 01/06/25 08:00 Respiratory Pattern Normal 01/06/25 08:00 Blood Pressure 120/70 01/06/25 08:30 Blood Pressure Mean 86 01/06/25 08:30 Blood Pressure Source Monitor 01/06/25 08:30 Blood Pressure Position Supine 01/06/25 08:30 Blood Pressure Location Right Arm 01/06/25 08:30 Pulse Ox 96 01/06/25 08:30 Oxygen Delivery Method CPAP 01/06/25 08:30 Fraction of Inspired Oxygen (FIO2) 35 01/06/25 08:30 I&O: I&O Last 24 Hours 01/05/25 01/05/25 01/06/25 11:59 23:59 11:59 Intake Total 3334.18 / 5381.68 1951.10 / 5381.68 1115.84 / 1115.84 Output Total 760 / 2600 1840 / 2600 950 / 950 Balance 2574.18 / 2781.68 111.10 / 2781.68 165.84 / 165.84 I&O: Total Stay 01/04/25 05:43 thru 01/06/25 08:00 Intake Total 31510.37 Output Total 4325 Balance 8443.37 Current Meds Ordered / Administered: Current meds ordered / Administered Generic Name Dose Route Start Last Admin Trade Name Freq PRN Reason Stop Dose Admin Acetaminophen 650 mg 01/05/25 07:56 01/05/25 21:42 Acetaminophen 650 Mg/20 Ml Udc GT 650 mg Q6H PRN PRN Administration Pain Or Fever >98.9 Albuterol/Ipratropium 3 ml 01/04/25 09:33 01/06/25 07:01 Ipratropium/Albuterol Sulfate 3 Ml Ampul.Neb INHALATION 3 ml Q6H.RT ROLANDO Administration Amiodarone HCl 200 mg 01/06/25 12:00 Amiodarone 200 Mg Tablet PO BID ROLANDO Atorvastatin Calcium 20 mg 01/04/25 22:00 01/05/25 21:39 Atorvastatin Calcium 20 Mg Tablet NG 20 mg QHS ROLANDO Administration Chlorhexidine Gluconate 15 ml 01/04/25 22:00 01/06/25 07:42 Chlorhexidine 15 Ml PO 15 ml BID ROLANDO Administration Chlorhexidine Gluconate 1 each 01/05/25 10:00 01/05/25 02:24 Chlorhexidine Gluc 2% Cloth 1 Each [place] TOPICAL 1 each DAILY ROLANDO Administration Glucagon 1 mg 01/04/25 09:33 Glucagon 1 Mg/Ml Syringe IM X1 PRN HYPOGLYCEMIA Protocol Heparin Sodium (Porcine) 5,000 unit 01/05/25 22:00 01/05/25 21:39 Heparin Injection (Vial) 5,000 Unit/Ml Vial SC 5,000 unit Q12 ROLANDO Administration Fentanyl 100 mls @ 5 mls/hr 01/04/25 06:00 01/06/25 08:00 CONT INF 0 mcg/hr UD ROLANDO 0 mls/hr Titration Protocol 50 MCG/HR Piperacillin Sod/Tazobactam 50 mls @ 12.5 mls/hr 01/04/25 14:00 01/06/25 05:13 Sod 3.375 gm/ Sodium Chloride IV 12.5 mls/hr Q8 ROLANDO Administration Vancomycin IV-PHARMACY TO DOSE 500 mls @ 250 mls/hr 01/04/25 09:33 1 each/ Sodium Chloride IV X1 PRN Rx to Dose Protocol Pantoprazole Sodium 40 mg/ 110 mls @ 330 mls/hr 01/04/25 10:00 01/05/25 21:58 Sodium Chloride IV Infused Q12 ROLANDO Infusion Dextrose 250 mls @ 0 mls/hr 01/04/25 09:33 Dextrose 10%-Water IV .Q0M PRN HYPOGLYCEMIA Protocol As Directed Vancomycin HCl 1,250 mg/ 275 mls @ 167 mls/hr 01/04/25 21:00 01/06/25 05:52 Sodium Chloride IV Infused Q8H ROLANDO Infusion Dopamine HCl/Dextrose 800 mg in 250 mls @ 12 mls/hr 01/04/25 13:00 01/06/25 08:00 CONT INF 10 mcg/kg/min .[id number] ROLANDO 24 mls/hr Titration Protocol 5 MCG/KG/MIN Amiodarone HCl 360 mg/ 200 mls @ 16.667 mls/hr 01/05/25 08:00 01/06/25 07:43 Dextrose CONT INF 0.5 mg/min .Q12H ROLANDO 16.7 mls/hr Administration 0.5 MG/MIN Dexmedetomidine HCl 1,000 mcg/ 250 mls @ 16 mls/hr 01/05/25 09:55 01/06/25 08:00 Sodium Chloride CONT INF 0.5 mcg/kg/hr .[id number] ROLANDO 16 mls/hr Titration Protocol 0.5 MCG/KG/HR Norepinephrine Bitartrate 8 mg 250 mls @ 9.375 mls/hr 01/05/25 12:00 01/06/25 07:00 / Sodium Chloride CONT INF 0 mcg/min .[id number] ROLANDO 0 mls/hr Titration Protocol 5 MCG/MIN Insulin Human Lispro 0 unit 01/04/25 12:00 01/06/25 05:13 Insulin Lispro 100 Unit/Ml Insuln.Pen SC Not Given Q6 [facility] Protocol Ondansetron HCl 4 mg 01/04/25 09:33 Ondansetron 4 Mg/2 Ml Vial IV Q8H PRN PRN NAUSEA/VOMITING Sodium Chloride 10 - 40 ml 01/04/25 09:39 01/06/25 05:13 0.9% Saline Lock 10 Ml Syringe IV 20 ml UD PRN Administration SALINE FLUSH Vancomycin Protocol 1 lab 01/06/25 11:30 Vancomycin Trough/Random Due 01/06/25 13:30 DAILY [facility] Lab / Micro Data 01/06/25 05:00 01/06/25 05:00 Labs: Laboratory Results - last 24 hr 01/05/25 03:20: Hemoglobin A1c 6.1 H 01/05/25 12:45: Vancomycin Trough 16.2 H 01/05/25 13:34: POC Glucose 129 H 01/05/25 17:57: POC Glucose 120 H 01/05/25 23:22: POC Glucose 120 H 01/06/25 05:00: WBC 15.3 H, RBC 4.38 L, Hgb 10.9 L, Hct 35.1 L, MCV 80.1, MCH 24.9 L, MCHC 31.1 L, RDW Std Deviation 46.7 H, RDW Coeff of Nash 16.2 H, Plt Count 160, MPV 9.6, Immature Gran % (Auto) 0.800, Neut % (Auto) 83.1 H, Lymph % (Auto) 7.8 L, [place] % (Auto) 7.3, Eos % (Auto) 0.6, Baso % (Auto) 0.4, Absolute Neuts (auto) 12.7 H, Absolute Lymphs (auto) 1.19, Nucleated RBC % 0, Sodium 134, Potassium 4.1, Chloride 106, Carbon Dioxide 21.1, Anion Gap 8, BUN 27 H, Creatinine 0.80, Estim Creat Clear Calc 134.59, Est GFR (MDRD) Non-Af 103, BUN/Creatinine Ratio 33.7 H, Glucose 195 H, Calcium 7.6, Phosphorus 2.3 L, Magnesium 1.9 01/06/25 05:11: POC Glucose 117 H Micro: Microbiology 01/04/25 06:18 Sputum, Induced/Lukens Gram Stain - Final 01/04/25 06:18 Sputum, Induced/Lukens Respiratory Culture - Final 01/05/25 10:20 Nasal Secretion MRSA (PCR) - Final ABG Data ABG results: ABG 01/06/25 07:23 Specimen Type ART Sample Site L Radial pH 7.34 L Bicarbonate Actual 23.0 Total CO2 24 Base Excess -3 L O2 Saturation 95 O2 % 35.0 ABG pCO2 42.8 ABG pO2 78 Driss Test N/A Respiration Rate 16 O2 Delivery Device Adult Vent Vent Mode AC Tidal Volume 500.0 POC PEEP 5 Assessment and Plan . Assessment and plan: Pt seen and examined. No acute events. Pressor requirements markedly better. Fever curve improved and he remained afebrile overnight. In SR this AM. Good UOP. Precedex @ 0.5 Dopa @ 10 Amio @ 0.5 16 500 8 40 --> 5/5 PS/CPAP this AM PE: General: Well developed, intubated HEENT: anicteric Sclera; + ETT, nl nose; supple neck, no masses Cardiovascular: Tachy; +S1/S2; No murmurs, rubs, gallops; +2 nonpitting generalized edema Respiratory: clear anterior breath sounds; diminished lateral bases; no sig crackles, wheezes, or rhonchi Abdominal: Non-tender; Non distended; hypoBS x 4; No Hepatosplenomegaly Extremities: Warm, well perfused; No clubbing, cyanosis; capillary refill > 2 sec Neurological: awake, alert, no focal deficits, Lt eyelid droop chronic with stress per family A/P: #Acute respiratory failure with hypoxia and hypercapnia #Shock, unspecified #VF cardiac arrest #HFrEF with severely reduced EF 10-15% #Mild non-obstructive CAD #B/L PNA vs pneumonitis likely 2* aspiration #Rt anterior 4th & 5th rib fractures #?GIB #CODI #Lactic acidosis #Acute encephalopathy #Elevated LFTs #Morbid obesity #HTN #DLD -Cont MV; settings reviewed/adjusted; cont weaning PEEP/FiO2; proceed with SAT +/- SBTs as tolerated --> doing great on SAT/SBT today; plan to extubate -Remains on very high dopamine gtt; will adjust sedation strategy and discuss with cardiology re: addition of other inovasopressors --> added NEpi yesterday with improvement in overall requirements; this AM he is significantly improved and should be able to wean off dopamine; HR much better as well -Cont amio gtt; monitor for further arrhythmias --> transition to PO amio once cleared for PO intake -SP cardiac cath with findings as noted above; F/U TTE; cont medical management per cardiology -Assess neuro status off sedation; at this time appears fully neurologically intact; further workup/prognostication as guided by exam --> intact -DC & avoid IVF given severely reduced EF; cont strict I/Os --> good UOP, CODI resolved -Cont emp IV ABx- vanc/Zosyn- pending infectious w/u; check nasal MRSA and if neg can likely stop vanc if no GPC on cultures after 48h; if no risk factors for PsA or other hospital associated organisms can likely de-esc to Unsayn or Augmentin at the 48h mel as well --> de-esc as suggested -No overt bleeding but on-going significant reddish-brown output from OGT; keep on LIWS; cont PPI IV BID; monitor blood counts --> downtrending but no overt bleeding -Minimally elevated LFTs; cont to monitor -PT/OT post-extubation NPO Heparin, PPI Guarded prognosis Critical Care Time: 50 min The entirety of this encounter was done via Telemedicine
[2025-01-06 09:29] LABS: Base Excess -2 mmol/L (-2 to +2); Bicarbonate 23.8 mmol/L (22-26); Blood Gas Specimen Type ART; Mode PS; O2 Delivery Device Adult Vent; PEEP 5; PO2 69 mmHG (75-100); SITE L Radial; SO2 92 % (95-99); Total Carbon Dioxide 25 mmol/L; pCO2 43.8 mmHg (35-45); pH 7.34 (7.35-7.45)
[2025-01-06] MEDS: Pantoprazole Sodium 40 MG in 0.9% Normal Saline (100mL MB+) 100 ML 330 MG IV ×2 (10:10→21:33)
[2025-01-06] MEDS: Heparin Injection (Vial) 5,000 UNIT/ML VIAL 5000 UNIT SC ×2 (10:10→21:34)
[2025-01-06] MEDS: Vancomycin Trough/Random Due 1 LAB MC (12:33)
[2025-01-06] MEDS: Acetaminophen 650 MG/20 ML UDC GT (12:41)
[2025-01-06] MEDS: Amiodarone 200 MG Tablet PO ×2 (12:42→21:34)
[2025-01-06 13:27] LABS: Vancomycin, Trough Level 14.9 ug/mL (5.0-15.0)
--- NOTE | 2025-01-06 13:37 | PCM.RX.CS ---
Consult Antibiotic Management Pharmacy has been consulted to manage selected antibiotic: Vancomycin Type of Intervention Type of Consult: Follow-up Suspected Infection Suspected Infection: Other (EMPIRIC) Prior Doses of Antibiotics Prior Doses of Antibiotics Received/Current Regimen: Vancomycin 1250 mg Q8H last dose given 01/06 @ 0410 Labs Labs: Sodium 134 mmol/L (133-145) 01/06/25 05:00 Potassium 4.1 mmol/L (3.3-5.1) 01/06/25 05:00 Chloride 106 mmol/L (98-108) 01/06/25 05:00 Carbon Dioxide 21.1 mmol/L (21.0-32.0) 01/06/25 05:00 Anion Gap 8 (5-15) 01/06/25 05:00 BUN 27 mg/dL (4-19) H 01/06/25 05:00 Creatinine 0.80 mg/dL (0.70-1.20) 01/06/25 05:00 Est GFR (MDRD) Non-Af 103 (>60) 01/06/25 05:00 BUN/Creatinine Ratio 33.7 RATIO (10-20) H 01/06/25 05:00 Glucose 195 mg/dL (70-99) H 01/06/25 05:00 Vancomycin Trough 14.9 ug/mL (5.0-15.0) 01/06/25 12:33 Microbiology Microbiology: Microbiology 01/04/25 07:34 Blood Culture (Wb) - Anticubital Left Blood Culture - Preliminary No growth in 48 hours. 01/04/25 05:47 Blood Culture (Wb) - Anticubital Right Blood Culture - Preliminary No growth in 48 hours. 01/04/25 06:18 Sputum, Induced/Lukens Gram Stain - Final 01/04/25 06:18 Sputum, Induced/Lukens Respiratory Culture - Final 01/05/25 10:20 Nasal Secretion MRSA (PCR) - Final 01/04/25 10:30 Interface Orders Gastric Occult Blood - Final Occult Blood Positive 01/04/25 06:03 Mucosa - Nose SARS-CoV-2, Influenza & RSV (PCR) - Final Dosing Weight Weight used for dosin kg Estimated Creatinine Clearance Estimated Creatinine Clearance: ~ 135 Goal Trough Goal Trough: 15-20 mcg/mL Pharmacy Plan for Drug Dosing Pharmacy Plan for Drug Dosing: Vancomycin trough = 14.9, continue current dosing as expect some accumulation Pharmacy Service will continue to monitor and adjust dosing as required. Follow-Up Labs Follow-Up Labs: Trough: Vancomycin Date/Time Labs Ordered Labs to be done on [date and time ordered]: 01/08/25 @ 9146
--- NOTE | 2025-01-06 13:51 | PN.HOSP_ITS ---
Reason for Visit Reason for Visit: Diagnoses Sepsis, unspecified organism (01/04/25) Cardiac arrest, cause unspecified (01/04/25) Ventricular fibrillation (01/04/25) Other ill-defined heart diseases (01/04/25) Pneumonitis due to inhalation of food and vomit (01/04/25) Acute respiratory failure with hypoxia (01/04/25) Acute respiratory failure with hypercapnia (01/04/25) Shock, unspecified (01/04/25) Subjective Subjective Patient was seen and examined today, he was extubated earlier this morning and appears to be doing well on nasal cannula oxygen. Patient's was in the room at the time my examination, patient is alert and appropriate. Patient had a run of A-fib today, I forwarded this information to Dr. Pierce. Patient was asymptomatic. Objective Data Objective Data Vital Signs: Vital Signs Temp Pulse Resp BP Pulse Ox O2 Del Method O2 Flow Rate 98.9 F 92 16 112/69 96 CPAP 2 01/06/25 08:30 01/06/25 12:51 01/06/25 12:51 01/06/25 11:45 01/06/25 08:30 01/06/25 08:30 01/06/25 08:06 FiO2 35 01/06/25 08:30 Oxygen Flow Rate (L/min) 2 Oxygen Delivery Method CPAP Weight: 130.9 kg Body Mass Index (BMI) 42.7 Intake & Output: Intake and Output for Last 24 Hours 01/04/25 01/05/25 01/06/25 23:59 23:59 23:59 Intake Total 6367.25 / 6633.27 5285.28 / 5381.68 1356.94 / 1356.94 Output Total 775 / 775 2600 / 2600 950 / 950 Balance 5592.25 / 5858.27 2685.28 / 2781.68 406.94 / 406.94 Lab / Micro Data 01/06/25 05:00 01/06/25 05:00 Labs: Laboratory Results - last 24 hr 01/05/25 13:34: POC Glucose 129 H 01/05/25 17:57: POC Glucose 120 H 01/05/25 23:22: POC Glucose 120 H 01/06/25 05:00: WBC 15.3 H, RBC 4.38 L, Hgb 10.9 L, Hct 35.1 L, MCV 80.1, MCH 24.9 L, MCHC 31.1 L, RDW Std Deviation 46.7 H, RDW Coeff of Nash 16.2 H, Plt Count 160, MPV 9.6, Immature Gran % (Auto) 0.800, Neut % (Auto) 83.1 H, Lymph % (Auto) 7.8 L, [place] % (Auto) 7.3, Eos % (Auto) 0.6, Baso % (Auto) 0.4, Absolute Neuts (auto) 12.7 H, Absolute Lymphs (auto) 1.19, Nucleated RBC % 0, Sodium 134, Potassium 4.1, Chloride 106, Carbon Dioxide 21.1, Anion Gap 8, BUN 27 H, Creatinine 0.80, Estim Creat Clear Calc 134.59, Est GFR (MDRD) Non-Af 103, B UN/Creatinine Ratio 33.7 H, Glucose 195 H, Calcium 7.6, Phosphorus 2.3 L, Magnesium 1.9 01/06/25 05:11: POC Glucose 117 H 01/06/25 12:33: Vancomycin Trough 14.9 Micro: Microbiology 01/04/25 07:34 Blood Culture (Wb) - Anticubital Left Blood Culture - Preliminary No growth in 48 hours. 01/04/25 05:47 Blood Culture (Wb) - Anticubital Right Blood Culture - Preliminary No growth in 48 hours. 01/04/25 06:18 Sputum, Induced/Lukens Gram Stain - Final 01/04/25 06:18 Sputum, Induced/Lukens Respiratory Culture - Final 01/05/25 10:20 Nasal Secretion MRSA (PCR) - Final 01/04/25 10:30 Interface Orders Gastric Occult Blood - Final Occult Blood Positive 01/04/25 06:03 Mucosa - Nose SARS-CoV-2, Influenza & RSV (PCR) - Final ABG Data ABG results: ABG 01/06/25 01/06/25 07:23 09:25 Specimen Type ART ART Sample Site L Radial L Radial pH 7.34 L 7.34 L Bicarbonate Actual 23.0 23.8 Total CO2 24 25 Base Excess -3 L -2 O2 Saturation 95 92 L O2 % 35.0 35.0 ABG pCO2 42.8 43.8 ABG pO2 78 69 L Driss Test N/A N/A Respiration Rate 16 O2 Delivery Device Adult Vent Adult Vent Vent Mode AC PS Tidal Volume 500.0 POC PEEP 5 5 Physical Exam Const alert, oriented x3, no apparent distress and healthy appearing Constitutional Narrative: Patient has class III obesity General Appearance: cooperative, well kempt and well developed Orientation / Consciousness: awake, oriented to person, oriented to place and oriented to time HEENT normocephalic, head/scalp atraumatic and moist oral mucous membranes Eyes PERRL, EOMs intact bilaterally and conjunctivae normal Neck supple, no JVD, thyroid normal and no carotid bruits General: trachea midline Resp normal respiratory effort, no retractions, no use of accessory muscles and clear to auscultation bilaterally Auscultation: Negative for rales, rhonchi or wheezes Cardio regular rate, regular rhythm, S1 normal heart sound, S2 normal heart sound, no murmurs, no rub and no gallops GI normal to inspection, nondistended, normoactive bowel sounds, soft to palpation, non-tender and non-distended Extremity no clubbing, cyanosis or edema Skin no rashes or lesions noted General Skin Exam: no breakdown Neuro oriented x3, CN's II-XII intact bilaterally, moves all extremities, no focal motor deficits and no sensory deficits noted Sensorium / Orientation: awake and alert Speech: speech normal Psych affect normal Assessment & Plan Assessment/Plan (1) Cardiac arrest with ventricular fibrillation: PLAN: Plan #1 ventricular fibrillation with cardiac arrest-patient remains on amiodarone, cardiology is participating in his care, patient has nonocclusive coronary disease on his catheterization #2 acute combined respiratory failure-patient was extubated today and appears to be doing well, he is on nasal cannula oxygen #3 bilateral infiltrates-probable aspiration pneumonia-patient remains on Zosyn and vancomycin #4 essential hypertension-patient's blood pressure will be monitored, he currently requires pressor support with dopamine #5 right anterior 4th and 5th rib fractures secondary to CPR-complicates care, management, recovery, and prognosis #6 elevated creatinine-patient's labs will be monitored, due to his low EF fluid administration would be complicated, cardiology is participating in his care Total clinical time spent by myself addressing the patient's medical issues, reviewing all of his data, and collaborating with patient's care team: 35 minutes Charges/Coding Visit Charges Inpatient E&M: 21711 Subs Hosp L2
[2025-01-06] MEDS: oxyCODONE 5 MG Tablet PO (18:12)
[2025-01-06] MEDS: Atorvastatin Calcium 20 MG Tablet NG (21:34)
[2025-01-07] VITALS (16 sets, daily range): BP systolic 116–159; BP diastolic 69–99; PULSE 99–116; RESP 12–24; TEMP 36.3–37.7; O2SAT 94–99; BMI 42.4
[2025-01-07] MEDS: oxyCODONE 5 MG Tablet PO ×3 (01:52→22:05)
[2025-01-07] MEDS: 0.9% Saline Lock 10 ML Syringe IV (05:09)
[2025-01-07] MEDS: Vancomycin HCl 1,250 MG in 0.9% Normal Saline (250mL Bag) 250 ML 167 MG IV (05:10)
[2025-01-07] MEDS: Piperacil/Tazobactam 3.375 GM in 0.9% Normal Saline (50mL MB+) 50 ML IV (05:11)
[2025-01-07 05:49] LABS: AST(SGOT) 53 U/L (<=37); Alanine Aminotransfer ALT/SGPT 54 U/L (<=46); Albumin, Serum 2.9 g/dL (3.5-5.0); Alkaline Phosphatase 73 U/L (40-129); Anion Gap 8 (5-15); BUN 20 mg/dL (4-19); BUN/Creat Ratio 26.5 RATIO (10-20); Calcium,Total 8.1 mg/dL (7.6-11.0); Carbon Dioxide 22.5 mmol/L (21.0-32.0); Chloride 106 mmol/L (98-108); Creatinine, Serum 0.75 mg/dL (0.70-1.20); EST Glomerular Filtration Rate 105 (>60); Estimated Creatinine Clearance 142.94 ml/min (50-250); Globulin 2.9 g/dL (2.2-4.2); Glucose 91 mg/dL (70-99); Magnesium 2.1 mg/dL (1.5-2.2); Phosphorus 1.3 mg/dL (2.7-4.5); Potassium 3.6 mmol/L (3.3-5.1); Protein, Total 5.7 g/dL (5.9-8.4); Sodium Level 137 mmol/L (133-145); Total Bilirubin 1.01 mg/dL (0.00-1.30)
[2025-01-07] MEDS: Ipratropium/Albuterol Sulfate 3 ML AMPUL.NEB INHALATION ×3 (06:56→17:42)
--- NOTE | 2025-01-07 07:12 | PCM.PN.HOSP ---
Reason for Visit Reason for Visit: Diagnoses Sepsis, unspecified organism (01/04/25) Cardiac arrest, cause unspecified (01/04/25) Ventricular fibrillation (01/04/25) Other ill-defined heart diseases (01/04/25) Pneumonitis due to inhalation of food and vomit (01/04/25) Acute respiratory failure with hypoxia (01/04/25) Acute respiratory failure with hypercapnia (01/04/25) Shock, unspecified (01/04/25) Subjective Subjective Patient is a 59-year-old gentleman who was found unresponsive by the initiated CPR called the squad. Patient was found to be in ventricular fibrillation when the EMS squad arrived. Successfully resuscitated with ROSC and transferred to the intensive care unit patient was intubated in the ED underwent emergency left heart catheterization which was unremarkable. CT of the chest showed no pulmonary embolism. Admitted to the intensive care unit subsequently Objective Data Objective Data Vital Signs: Vital Signs Temp Pulse Resp BP Pulse Ox O2 Del Method O2 Flow Rate 99.5 F H 102 H 12 148/77 H 98 Nasal Cannula 4 01/07/25 04:00 01/07/25 07:00 01/07/25 07:00 01/07/25 07:00 01/07/25 07:00 01/07/25 07:00 01/07/25 06:00 FiO2 35 01/06/25 09:00 Oxygen Flow Rate (L/min) 4 Oxygen Delivery Method Nasal Cannula Weight: 129.9 kg Body Mass Index (BMI) 42.4 Intake & Output: Intake and Output for Last 24 Hours 01/05/25 01/06/25 01/07/25 23:59 23:59 23:59 Intake Total 5285.28 / 5381.68 2626.94 / 2626.94 325 / 325 Output Total 2600 / 2600 2150 / 2150 625 / 625 Balance 2685.28 / 2781.68 476.94 / 476.94 -300 / -300 Lab / Micro Data 01/06/25 05:00 01/07/25 05:05 Labs: Laboratory Results - last 24 hr 01/06/25 12:33: Vancomycin Trough 14.9 01/07/25 05:05: Sodium 137, Potassium 3.6, Chloride 106, Carbon Dioxide 22.5, Anion Gap 8, BUN 20 H, Creatinine 0.75, Estim Creat Clear Calc 142.94, Est GFR (MDRD) Non-Af 105, BUN/Creatinine Ratio 26.5 H, Glucose 91, Calcium 8.1, Phosphorus 1.3 L*, Magnesium 2.1, Total Bilirubin 1.01, AST 53 H, ALT 54 H, Alkaline Phosphatase 73, Total Protein 5.7 L, Albumin 2.9 L, Globulin 2.9, Albumin/Globulin Ratio 1.0 Micro: Microbiology 01/04/25 07:34 Blood Culture (Wb) - Anticubital Left Blood Culture - Preliminary No growth in 48 hours. 01/04/25 05:47 Blood Culture (Wb) - Anticubital Right Blood Culture - Preliminary No growth in 48 hours. 01/04/25 06:18 Sputum, Induced/Lukens Gram Stain - Final 01/04/25 06:18 Sputum, Induced/Lukens Respiratory Culture - Final 01/05/25 10:20 Nasal Secretion MRSA (PCR) - Final 01/04/25 10:30 Interface Orders Gastric Occult Blood - Final Occult Blood Positive 01/04/25 06:03 Mucosa - Nose SARS-CoV-2, Influenza & RSV (PCR) - Final ABG Data ABG results: ABG 01/06/25 01/06/25 07:23 09:25 Specimen Type ART ART Sample Site L Radial L Radial pH 7.34 L 7.34 L Bicarbonate Actual 23.0 23.8 Total CO2 24 25 Base Excess -3 L -2 O2 Saturation 95 92 L O2 % 35.0 35.0 ABG pCO2 42.8 43.8 ABG pO2 78 69 L Driss Test N/A N/A Respiration Rate 16 O2 Delivery Device Adult Vent Adult Vent Vent Mode AC PS Tidal Volume 500.0 POC PEEP 5 5 Physical Exam Narrative GENERAL: cooperative HEENT: Atraumatic; normocephalic EYES; Anicteric, Normal Conjunctiva NECK; supple, normal thyroid, RESPIRATORY: Diminished to auscultation CARDIOVASCULAR: Regular S1 S2, GI: soft, normoactive bowel sounds, : No Renal angle tenderness; EXTREMITIES: No edema, no clubbing, MUSCULOSKELETAL: no muscle wasting NEURO: Awake; no lateralizing signs. SKIN: No Rash PSYCH; Flat affect Assessment & Plan Assessment/Plan (1) Cardiac arrest with ventricular fibrillation: PLAN: Plan Patient is a 59-year-old gentleman who was found unresponsive by the initiated CPR called the squad. Patient was found to be in ventricular fibrillation when the EMS squad arrived. Successfully resuscitated with ROSC and transferred to the intensive care unit patient was intubated in the ED underwent emergency left heart catheterization which was unremarkable. CT of the chest showed no pulmonary embolism. Admitted to the intensive care unit subsequently 1. Cardiac arrest ? Secondary to ventricular fibrillation. Patient was successfully resuscitated with ROSC; underwent left heart catheterization was found to have no significant angiographic coronary artery disease was however found to have severely depressed LV systolic function Severe LV systolic dysfunction with generalized hypokinesis. Estimated LVEF 20 to 25%. Stage I diastolic dysfunction.. Seen in consultation by cardiology placed on amiodarone 2. Acute hypoxic respiratory failure ? CT of the chest obtained demonstrated large confluent alveolar opacities within the posterior portions of the lungs. Differential possibility release includes, butnot limited to diffuse alveolar hemorrhage, large aspirations, large infectious or inflammatory process.patient was placed on empiric antibiotic intubated in the ED and subsequently weaned off the vent on 01/06/2025 3. Shock ? cardiogenic shock following patient ventricular fibrillation. Patient did receive pressors with norepinephrine as well as dopamine has since been weaned off 4. Hypertension ? Blood pressure was low on admission and did receive dopamine 5. Rib fractures ? Involving the right anterior 4th and 5th following CPR. Manage conservatively with pain meds and use of incentive spirometry encouraged 6.Hypophosphatemia ? Corrected per protocol repeat labs ordered in a.m. to assess response to therapy 7. Acute kidney injury ? Patient creatinine peaked at 1.41 currently down to 0.75 following aggressive IV fluid resuscitation 8. Dyslipidemia ?Patient is on statin therapy, continued at home dose 9. Allergic rhinitis ? Patient is on Claritin-D 10. Class III obesity with BMI of 42.4 ? Complicating care weight loss advised 13. DVT prophylaxis ? Subcu heparin Time spent in the patient's overall evaluation,decision-making process, review of diagnostic data, adjustment of management, discussion with other providers, nursing nursing and ancillary staff involved in patient's care documentation, 52 Minutes Charges/Coding Visit Charges Inpatient E&M: 98718 [facility] Hosp L3
[2025-01-07] MEDS: Potassium Phosphate 40 MM in 0.9% Normal Saline (500mL Bag) 500 ML 62.5 MM IV (08:29)
--- NOTE | 2025-01-07 08:31 | PCM.PN.INT ---
Assessment & Plan Assessment/Plan (1) Acute respiratory failure with hypoxia and hypercapnia: (2) Cardiac arrest with ventricular fibrillation: PLAN: Plan RECOMMENDATIONS: 1. Continue to wean supplemental oxygen to maintain saturations at or above 90%. 2. Okay to transition to Unasyn to complete a total of 7 days of antimicrobials. 3. Additional medical management per cardiology recommendations. 4. Encourage incentive spirometer use and mobilize patient as tolerated. 5. The patient is medically stable for transfer out of the intensive care unit. 6. Will sign off from a critical care perspective. Please call with any additional questions. IMPRESSIONS: 1. Acute combined respiratory failure status post V-fib cardiac arrest The patient presented to the hospital after being found unresponsive by his and was noted to be in V-fib cardiac arrest by EMS. ACLS was initiated with ROSC ultimately achieved. The patient was ultimately intubated as a consequence of the aforementioned. While I do suspect that the infiltrates noted on chest imaging are likely related to pulmonary contusions in the setting of CPR, the patient will be continued on empiric antimicrobials to cover for aspiration. He was able to be successfully extubated on January 06 and is doing well from a respiratory perspective. 2. Cardiogenic shock Resolved. The patient has been weaned from vasopressor support and remains hemodynamically stable. Will defer ongoing medical management to cardiology. 3. History of hypertension/hyperlipidemia/obesity Complicates care, management, recovery and prognosis. Continue supportive measures as noted above. The patient has never previously been diagnosed with obstructive sleep apnea, according to his . This note was generated with [employer] dictation software. It may contain incorrect words, spelling, and punctuation that were not noted in checking the note before signing. Subjective Subjective The patient was seen and examined at the bedside this morning. Events from the last 24 hours have been reviewed. The patient is currently afebrile, hemodynamically stable and maintaining appropriate oxygen saturations on 4 L/min via nasal cannula. The patient is currently documented to be overall net +8.6 L for the hospitalization. Chemistry profile is within normal limits. The patient has done well from a respiratory perspective following extubation yesterday. Objective Data Objective Data The patient's most recent lab work, culture data and imaging studies have all been personally reviewed. Surface echocardiogram demonstrated severe LV systolic dysfunction with an ejection fraction of 20 to 25%. Infectious workup has been unrevealing to date. Vital Signs: Vital Signs Temp Pulse Resp BP Pulse Ox O2 Del Method O2 Flow Rate 99.5 F H 102 H 12 148/77 H 98 Nasal Cannula 4 01/07/25 04:00 01/07/25 07:00 01/07/25 07:00 01/07/25 07:00 01/07/25 07:00 01/07/25 07:00 01/07/25 06:56 FiO2 35 01/06/25 09:00 Oxygen Flow Rate (L/min) 4 Oxygen Delivery Method Nasal Cannula Weight: 286 lb 6.087 oz Body Mass Index (BMI) 42.4 Intake & Output: Intake and Output for Last 24 Hours 01/05/25 01/06/25 01/07/25 23:59 23:59 23:59 Intake Total 5285.28 / 5381.68 2626.94 / 2626.94 325 / 325 Output Total 2600 / 2600 2150 / 2150 625 / 625 Balance 2685.28 / 2781.68 476.94 / 476.94 -300 / -300 Lab / Micro Data Attestation: I reviewed the patient's lab results. 01/06/25 05:00 01/07/25 05:05 Labs: Laboratory Results - last 24 hr 01/06/25 12:33: Vancomycin Trough 14.9 01/07/25 05:05: Sodium 137, Potassium 3.6, Chloride 106, Carbon Dioxide 22.5, Anion Gap 8, BUN 20 H, Creatinine 0.75, Estim Creat Clear Calc 142.94, Est GFR (MDRD) Non-Af 105, BUN/Creatinine Ratio 26.5 H, Glucose 91, Calcium 8.1, Phosphorus 1.3 L*, Magnesium 2.1, Total Bilirubin 1.01, AST 53 H, ALT 54 H, Alkaline Phosphatase 73, Total Protein 5.7 L, Albumin 2.9 L, Globulin 2.9, Albumin/Globulin Ratio 1.0 Micro: Microbiology 01/04/25 07:34 Blood Culture (Wb) - Anticubital Left Blood Culture - Preliminary No growth in 48 hours. 01/04/25 05:47 Blood Culture (Wb) - Anticubital Right Blood Culture - Preliminary No growth in 48 hours. 01/04/25 06:18 Sputum, Induced/Lukens Gram Stain - Final 01/04/25 06:18 Sputum, Induced/Lukens Respiratory Culture - Final 01/05/25 10:20 Nasal Secretion MRSA (PCR) - Final 01/04/25 10:30 Interface Orders Gastric Occult Blood - Final Occult Blood Positive 01/04/25 06:03 Mucosa - Nose SARS-CoV-2, Influenza & RSV (PCR) - Final ABG Data ABG results: ABG 01/06/25 09:25 Specimen Type ART Sample Site L Radial pH 7.34 L Bicarbonate Actual 23.8 Total CO2 25 Base Excess -2 O2 Saturation 92 L O2 % 35.0 ABG pCO2 43.8 ABG pO2 69 L Driss Test N/A O2 Delivery Device Adult Vent Vent Mode PS POC PEEP 5 Physical Exam Const alert, oriented x3 and no apparent distress General Appearance: cooperative HEENT normocephalic, head/scalp atraumatic and moist oral mucous membranes Eyes PERRL, EOMs intact bilaterally and conjunctivae normal Neck supple General: trachea midline Chest inspection of chest normal Resp Auscultation: diminished lung sounds; Negative for rales, rhonchi or wheezes Cardio regular rate and regular rhythm GI normal to inspection, nondistended, normoactive bowel sounds Extremity no clubbing, cyanosis or edema Skin no rashes or lesions noted Neuro CN's II-XII intact bilaterally, moves all extremities and no focal motor deficits Psych cooperative and affect normal Charges/Coding Visit Charges Inpatient E&M: 91473 Subs Hosp L3
--- NOTE | 2025-01-07 09:10 | PCM.PN.CARD ---
Subjective Subjective Extubated. Off vasopressor agents. Awake. Alert. Denies any complaints. Objective Data Vital Signs: Vital Signs Temp Pulse Resp BP Pulse Ox O2 Del Method O2 Flow Rate 98.2 F 99 13 116/71 99 Nasal Cannula 4 01/07/25 08:00 01/07/25 08:00 01/07/25 08:00 01/07/25 08:00 01/07/25 08:00 01/07/25 08:00 01/07/25 08:00 FiO2 35 01/06/25 09:00 Oxygen Flow Rate (L/min) 4 Oxygen Delivery Method Nasal Cannula Weight: 286 lb 6.087 oz Body Mass Index (BMI) 42.4 Intake & Output: Intake and Output for Last 24 Hours 01/05/25 01/06/25 01/07/25 23:59 23:59 23:59 Intake Total 5285.28 / 5381.68 2626.94 / 2626.94 525 / 525 Output Total 2600 / 2600 2150 / 2150 625 / 625 Balance 2685.28 / 2781.68 476.94 / 476.94 -100 / -100 Lab / Micro Data 01/06/25 05:00 01/07/25 05:05 Labs: Laboratory Results - last 24 hr 01/06/25 12:33: Vancomycin Trough 14.9 01/07/25 05:05: Sodium 137, Potassium 3.6, Chloride 106, Carbon Dioxide 22.5, Anion Gap 8, BUN 20 H, Creatinine 0.75, Estim Creat Clear Calc 142.94, Est GFR (MDRD) Non-Af 105, BUN/Creatinine Ratio 26.5 H, Glucose 91, Calcium 8.1, Phosphorus 1.3 L*, Magnesium 2.1, Total Bilirubin 1.01, AST 53 H, ALT 54 H, Alkaline Phosphatase 73, Total Protein 5.7 L, Albumin 2.9 L, Globulin 2.9, Albumin/Globulin Ratio 1.0 Micro: Microbiology 01/04/25 07:34 Blood Culture (Wb) - Anticubital Left Blood Culture - Preliminary No growth in 48 hours. 01/04/25 05:47 Blood Culture (Wb) - Anticubital Right Blood Culture - Preliminary No growth in 48 hours. 01/04/25 06:18 Sputum, Induced/Lukens Gram Stain - Final 01/04/25 06:18 Sputum, Induced/Lukens Respiratory Culture - Final ABG Data ABG results: ABG 01/06/25 09:25 Specimen Type ART Sample Site L Radial pH 7.34 L Bicarbonate Actual 23.8 Total CO2 25 Base Excess -2 O2 Saturation 92 L O2 % 35.0 ABG pCO2 43.8 ABG pO2 69 L Driss Test N/A O2 Delivery Device Adult Vent Vent Mode PS POC PEEP 5 Cardiology Labs/Tests 01/06/25 09:25: pH 7.34 L, Bicarbonate Actual 23.8, Base Excess -2, O2 Saturation 92 L, ABG pCO2 43.8, ABG pO2 69 L, Driss Test N/A 01/07/25 05:05: Sodium 137, Potassium 3.6, Chloride 106, Carbon Dioxide 22.5, Anion Gap 8, BUN 20 H, Creatinine 0.75, Est GFR (MDRD) Non-Af 105, BUN/Creatinine Ratio 26.5 H, Glucose 91, Calcium 8.1, Phosphorus 1.3 L*, Magnesium 2.1, Total Bilirubin 1.01 Rhythm: EKG: ECHO: Stress Test: Cardiac Cath: PCI: CT Surgery: Holter monitor: EPS: PPM: CXR: Chest CT Scan: Physical Exam Narrative Heart sounds 1 and 2 normal. Chest clear to auscultation bilaterally. Alert. Awake. Trace bilateral ankle edema. Assessment & Plan Assessment/Plan (1) Cardiac arrest with ventricular fibrillation: PLAN: No significant angiographic coronary artery disease on coronary angiography. Severely depressed LV systolic function. Nonischemic cardiomyopathy versus transient stunning with sepsis syndrome. Continue on amiodarone for now. Switch to p.o. When patient extubated. (2) Acute sepsis: PLAN: Pneumonia. On antibiotics. Continue to manage as per critical care. (3) Shock circulatory: PLAN: Combination distributive septic shock and cardiogenic. Improved. Off vasopressor agents. (4) Left ventricular systolic dysfunction (LVSD): PLAN: Status post V-fib arrest. Nonischemic cardiomyopathy versus transient stunning in the setting of acute sepsis. Continue to monitor. Start low-dose beta-blockers, ACEI, spironolactone. SGLT2 inhibitors. (5) Coronary artery disease: PLAN: Mild. Nonobstructive. Continue aspirin. For risk factor modification. PLAN: Plan Patient with V-fib cardiac arrest on presentation. Severely depressed LV systolic function. Per patient's , the patient has a family history of sudden cardiac . I would recommend transferring the patient to a center with cardiac MRI. After cardiac MRI, consider ICD placement before discharge home versus discharge with a LifeVest.
--- NOTE | 2025-01-07 09:11 | CASEMGMT ---
[facility] as follows: [facility], [facility], [facility], , [place], [place], [facility]. Ankita Mandel, Discharge Planning Ass
[2025-01-07] MEDS: Amiodarone 200 MG Tablet PO ×2 (09:49→22:36)
[2025-01-07] MEDS: Heparin Injection (Vial) 5,000 UNIT/ML VIAL 5000 UNIT SC ×2 (09:49→22:36)
[2025-01-07] MEDS: Na Biphos/Potassium Phosphate PACKET 1 PACKET PO (09:50)
[2025-01-07] MEDS: Empagliflozin 10 MG Tablet PO (12:39)
[2025-01-07] MEDS: Lisinopril 2.5 MG Tablet PO (12:39)
[2025-01-07] MEDS: CHLORHEXIDINE GLUC 2% CLOTH 1 EACH TOWELETTE TOPICAL (12:40)
[2025-01-07] MEDS: Ampicillin/Sulbactam 3 GM in 0.9% Normal Saline (100mL MB+) 100 ML IV ×2 (14:36→22:05)
[2025-01-07] MEDS: Spironolactone 25 MG Tablet 12.5 MG PO (15:01)
--- NOTE | 2025-01-07 17:06 | DS.PCM_ITS ---
Providers Date of Admission: 01/04/25 Date of Discharge: 01/08/25 Primary Care Physician: Dr. Wing Calderón MD Consultations 01/04/25 09:33 Consult: Cardiology Routine Consulting Provider: Shad Pierce Reason for Consult: Cardiac arrest EMERGENT Consult: No Notified: Yes Date Notified: 01/04/25 Time Notified: 09:21 Method of Notification: Verbal Consult: Business Risk Analyst / Pulmonary Medicine Routine Consulting Provider: Intensivists/Pulmonary Med Reason for Consult: Cardiopulmonary arrest EMERGENT Consult: No Notified: Yes Date Notified: 01/04/25 Time Notified: 09:20 Method of Notification: Verbal Reason For Visit: CARDIOPULMONARY ARREST Diagnosis Discharge Diagnosis (1) Cardiac arrest with ventricular fibrillation: Status: Acute Code(s): I46.9 - Cardiac arrest, cause unspecified; I49.01 - Ventricular fibrillation (2) Acute sepsis: Status: Acute Code(s): A41.9 - Sepsis, unspecified organism (3) Shock circulatory: Status: Acute Code(s): R57.9 - Shock, unspecified (4) Left ventricular systolic dysfunction (LVSD): Status: Acute Code(s): I51.89 - Other ill-defined heart diseases (5) Coronary artery disease: Status: Acute Code(s): I25.10 - Atherosclerotic heart disease of [place] coronary artery without angina pectoris Plan Patient is a 59-year-old gentleman who was found unresponsive by the initiated CPR called the squad. Patient was found to be in ventricular fibrillation when the EMS squad arrived. Successfully resuscitated with ROSC and transferred to the intensive care unit patient was intubated in the ED underwent emergency left heart catheterization which was unremarkable. CT of the chest showed no pulmonary embolism. Admitted to the intensive care unit subsequently 1. Cardiac arrest ? Secondary to ventricular fibrillation. Patient was successfully resuscitated with ROSC; underwent left heart catheterization was found to have no significant angiographic coronary artery disease was however found to have severely depressed LV systolic function Severe LV systolic dysfunction with generalized hypokinesis. Estimated LVEF 20 to 25%. Stage I diastolic dysfunction.. Seen in consultation by cardiology placed on amiodarone ? 01/08/2025; Case was discussed with Dr. Pierce with cardiology the day prior recommended for patient to be transferred to a tertiary care center for assessment for possible for EP evaluation for possible AICD placement. Call was placed to [facility] Patient accepted for transfer 2. Acute hypoxic respiratory failure ? CT of the chest obtained demonstrated large confluent alveolar opacities within the posterior portions of the lungs. Differential possibility release includes, butnot limited to diffuse alveolar hemorrhage, large aspirations, large infectious or inflammatory process.patient was placed on empiric antibiotic intubated in the ED and subsequently weaned off the vent on 01/06/2025 3. Shock ? cardiogenic shock following patient ventricular fibrillation. Patient did receive pressors with norepinephrine as well as dopamine has since been weaned off 4. Hypertension ? Blood pressure was low on admission and did receive dopamine 5. Rib fractures ? Involving the right anterior 4th and 5th following CPR. Manage conservatively with pain meds and use of incentive spirometry encouraged 6.Hypophosphatemia ? Corrected per protocol repeat labs ordered in a.m. to assess response to therapy 7. Acute kidney injury ? Patient creatinine peaked at 1.41 currently down to 0.75 following aggressive IV fluid resuscitation 8. Dyslipidemia ?Patient is on statin therapy, continued at home dose 9. Allergic rhinitis ? Patient is on Claritin-D 10. Class III obesity with BMI of 42.4 ? Complicating care weight loss advised 13. DVT prophylaxis ? Subcu heparin Time spent in the patient's overall evaluation,decision-making process, review of diagnostic data, adjustment of management, discussion with other providers, nursing nursing and ancillary staff involved in patient's care documentation, 38 Minutes Medications at Discharge Home Medications atorvastatin 40 mg tablet 20 mg PO QHS 08/25/13 fluticasone propionate 50 mcg/actuation nasal spray,suspension 2 spray DAILY 08/25/13 loratadine-pseudoephedrine ER 10 mg-240 mg tablet,extended [id number] (Loratadine-D) 1 tab PO DAILY 08/25/13 izijcnxp-czs-yonqi acid 0.4 mg-lycopene 300 mcg-lutein 250 mcg tablet (Centrum Silver) 1 ea PO DAILY 08/25/13 amiodarone 200 mg tablet 200 mg PO BID #60 tabs 01/08/25 aspirin 81 mg tablet,delayed release 81 mg PO BREAKFAST #30 tabs 01/08/25 carvedilol 3.125 mg tablet 3.125 mg PO BIDCM #60 tabs 01/08/25 empagliflozin 10 mg tablet (Jardiance) 10 mg PO DAILY #60 tabs 01/08/25 lisinopril 2.5 mg tablet 2.5 mg PO DAILY #30 tabs 01/08/25 potassium, sodium phosphates 280 mg-160 mg-250 mg oral powder packet 1 packet PO BID 30 days #60 ea 01/08/25 spironolactone 25 mg tablet 12.5 mg (1/2 x 25 mg) PO DAILY 30 days #15 tabs 01/08/25 Physical Exam Narrative GENERAL: cooperative HEENT: Atraumatic; normocephalic EYES; Anicteric, Normal Conjunctiva NECK; supple, normal thyroid, RESPIRATORY: Diminished to auscultation CARDIOVASCULAR: Regular S1 S2, GI: soft, normoactive bowel sounds, : No Renal angle tenderness; EXTREMITIES: No edema, no clubbing, MUSCULOSKELETAL: no muscle wasting NEURO: Awake; no lateralizing signs. SKIN: No Rash PSYCH; Flat affect Weight / BMI Weight Weight: 130 kg Body Mass Index (BMI) 42.4 ABG / Lab / Microbiology Data 01/08/25 06:09 01/08/25 06:09 Laboratory: Laboratory Results - last 24 hr 01/08/25 06:09: WBC 9.5, RBC 4.20 L, Hgb 10.6 L, Hct 33.2 L, MCV 79.0 L, MCH 25.2 L, MCHC 31.9 L, RDW Std Deviation 47.6 H, RDW Coeff of Nash 16.6 H, Plt Count 176, MPV 10.2, Immature Gran % (Auto) 0.500, Neut % (Auto) 70.8 H, Lymph % (Auto) 13.0 L, [place] % (Auto) 11.3 H, Eos % (Auto) 3.8, Baso % (Auto) 0.6, Absolute Neuts (auto) 6.7, Absolute Lymphs (auto) 1.23, Nucleated RBC % 0, Sodium 140, Potassium 3.5, Chloride 108, Carbon Dioxide 21.5, Anion Gap 10, BUN 16, Creatinine 0.78, Estim Creat Clear Calc 137.51, Est GFR (MDRD) Non-Af 104, B UN/Creatinine Ratio 20.6 H, Glucose 104 H, Calcium 8.2, Phosphorus 2.0 L, Magnesium 2.1 Microbiology: Microbiology 01/04/25 07:34 Blood Culture (Wb) - Anticubital Left Blood Culture - Preliminary No growth in 48 hours. 01/04/25 05:47 Blood Culture (Wb) - Anticubital Right Blood Culture - Preliminary No growth in 48 hours. 01/04/25 06:18 Sputum, Induced/Lukens Gram Stain - Final 01/04/25 06:18 Sputum, Induced/Lukens Respiratory Culture - Final 01/05/25 10:20 Nasal Secretion MRSA (PCR) - Final 01/04/25 10:30 Interface Orders Gastric Occult Blood - Final Occult Blood Positive 01/04/25 06:03 Mucosa - Nose SARS-CoV-2, Influenza & RSV (PCR) - Final D/C Instructions Discharge Diet: Low fat / Low cholesterol and 2000 mg Sodium Diet Discharge Activity: Return to Normal Activity Call your doctor if you observe: Fever of 101 or Higher, Shortness of breath, Fainting spells and Chest pain DC O2, CPAP, BIPAP Needs Home O2 Discharge instructions: No Meaningful Use Info Meaningful Use Meaningful Use Diagnoses (Choose all that apply): CHF CHF NAILA/ARB ordered at discharge?: Yes Documented LVEF (%): 25 Ischemic Stroke Statin Dosing Therapy Reference: STATIN DOSE THERAPY REFERENCE: * Patients > 75 years receive moderate or high dose statin therapy. * Patients 75 years or YOUNGER should receive HIGH intensity statin dose unless contraindicated. You will be required to document reason for non-treatment if statin daily dose does not meet guidelines. HIGH DOSE STATIN THERAPY DAILY Atorvastatin > than or = to 40 mg Rosuvastatin > than or = to 20 mg Amlodipine + Atorvastatin > than or = to 2.5/40 mg Ezetimibe + Simvastatin 10/80 mg Simvastatin 80mg Discharge Plan Admission Admit Date/Time: 01/04/25 09:07 Attending Provider: Orlando Cadet Primary Care Provider: Wing Calderón Consulting Providers: Torey Malhotra; Shad Pierce Discharge Orders/Prescriptions Prescriptions: New amiodarone 200 mg Tablet 200 mg PO BID Qty: 60 0RF spironolactone 25 mg Tablet 12.5 mg PO DAILY 30 Days Qty: 15 0RF carvedilol 3.125 mg Tablet 3.125 mg PO BIDCM Qty: 60 0RF potassium, sodium phosphates 280-160-250 mg Powder In Packet 1 packet PO BID 30 Days Qty: 60 0RF Jardiance 10 mg Tablet 10 mg PO DAILY Qty: 60 0RF aspirin 81 mg Tablet,Delayed Release (Dr/Ec) 81 mg PO BREAKFAST Qty: 30 0RF lisinopril 2.5 mg Tablet 2.5 mg PO DAILY Qty: 30 0RF Continued atorvastatin 40 MG tablet 20 mg PO QHS Loratadine-D 1 TABLET tablet 1 tab PO DAILY fluticasone propionate 1 SPRAY spray,suspension 2 spray NASAL DAILY Centrum Silver 1 EACH tablet 1 ea PO DAILY Discontinued atenolol 50 MG tablet 50 mg PO QHS aspirin 325 mg Tablet 325 mg PO DAILY lisinopril 5 mg tablet 5 mg PO DAILY ondansetron HCl 4 mg tablet 4 mg PO TID Referrals / Follow Up: Shad Pierce MD [Med Staff - Active Staff] - Within 2 Weeks Wing Calderón MD [Primary Care Provider] - Within 2 Weeks Disposition Disposition (needs filled in before D/C Order can be placed): Acute Care Hospital Charges/Coding Visit Charges Inpatient E&M: 71056 Disch Hosp >30min
[2025-01-07] MEDS: Carvedilol 3.125 MG TABLET PO (18:07)
[2025-01-07] MEDS: Atorvastatin Calcium 20 MG Tablet NG (22:36)
[2025-01-08] VITALS (8 sets, daily range): BP systolic 134–166; BP diastolic 77–100; PULSE 86–108; RESP 16–20; TEMP 36.1–37; O2SAT 91–98; BMI 42.4
[2025-01-08] MEDS: Ipratropium/Albuterol Sulfate 3 ML AMPUL.NEB INHALATION ×3 (00:35→12:43)
[2025-01-08] MEDS: Ampicillin/Sulbactam 3 GM in 0.9% Normal Saline (100mL MB+) 100 ML IV ×3 (06:34→21:40)
[2025-01-08 06:46] LABS: Absolute Lymphocyte Count 1.23 X10^3/uL (0.83-4.51); Absolute Neutrophil Count 6.7 X10^3/uL (2.0-7.7); Basophil# 0.06 X10^3/uL; Basophil% 0.6 % (0-1); Eosinophil# 0.36 X10^3/uL; Eosinophils% 3.8 % (0-5); Hematocrit 33.2 % (40-54); Hemoglobin 10.6 g/dL (13.0-16.5); Lymphocyte # 1.23 X10^3/ul (0.83-4.51); Mean Corp Hgb Conc 31.9 g/dL (32-36); Mean Corpuscular Hgb 25.2 pg (27.0-32.0); Mean Platelet Vol. 10.2 fl (6.2-12.0); Monocyte# 1.07 X10^3/uL; Monocyte% 11.3 % (0-10); NRBC Flagged by Analyzer 0 % (0-5); Neutrophil % 70.8 % (47-70); Platelet Count 176 K/mm3 (150-450); RBC Distribution Width CV 16.6 % (11.6-14.6); RBC Distribution Width SD 47.6 fl (35.1-43.9); White Blood Count 9.5 K/mm3 (4.4-11.0)
[2025-01-08 07:01] LABS: Anion Gap 10 (5-15); BUN 16 mg/dL (4-19); BUN/Creat Ratio 20.6 RATIO (10-20); Calcium,Total 8.2 mg/dL (7.6-11.0); Carbon Dioxide 21.5 mmol/L (21.0-32.0); Chloride 108 mmol/L (98-108); Creatinine, Serum 0.78 mg/dL (0.70-1.20); EST Glomerular Filtration Rate 104 (>60); Estimated Creatinine Clearance 137.51 ml/min (50-250); Glucose 104 mg/dL (70-99); Magnesium 2.1 mg/dL (1.5-2.2); Potassium 3.5 mmol/L (3.3-5.1); Sodium Level 140 mmol/L (133-145)
[2025-01-08] MEDS: Carvedilol 3.125 MG TABLET PO ×2 (08:47→17:59)
[2025-01-08] MEDS: Na Biphos/Potassium Phosphate PACKET 1 PACKET PO ×2 (08:48→20:48)
[2025-01-08] MEDS: Aspirin E.C. 81 MG Tablet PO (08:55)
[2025-01-08] MEDS: Amiodarone 200 MG Tablet PO ×2 (08:55→20:48)
[2025-01-08] MEDS: Heparin Injection (Vial) 5,000 UNIT/ML VIAL 5000 UNIT SC ×2 (08:55→20:48)
[2025-01-08] MEDS: Lisinopril 2.5 MG Tablet PO ×2 (09:34→20:48)
[2025-01-08] MEDS: Spironolactone 25 MG Tablet 12.5 MG PO (09:34)
[2025-01-08] MEDS: Empagliflozin 10 MG Tablet PO (09:34)
--- NOTE | 2025-01-08 11:45 | PHA.DC_ITS ---
Pharmacy [facility] has performed discharge medication reconciliation and counseling for this patient. 1. Amiodarone 200mg PO BID 2. Aspirin 81mg PO daily (decreased from 325mg) 3. Carvedilol 3.125mg PO BID (stop atenolol) 4. Lisinopril 2.5mg PO daily (decreased from 5mg) 5. Jardiance 10mg PO daily 6. Neutra-phos 1 packet PO ID 7. Spironolactone 12.5mg PO daily The patient's discharge medication list was reviewed for discrepancies and discrepancies were resolved. The patient was counseled on the following discharge medications and changes in medications for homegoing were reviewed. The Reason for Use, instructions for use, and potential side effects were reviewed for all new medications. The patient's questions regarding all of their medications were answered. The patient was able to verbally demonstrate an understanding of their discharge medications. Patient counseled by student accounts coordinator, Ed. Medications at Discharge Home Medications atorvastatin 40 mg tablet 20 mg PO QHS 08/25/13 fluticasone propionate 50 mcg/actuation nasal spray,suspension 2 spray DAILY 08/25/13 loratadine-pseudoephedrine ER 10 mg-240 mg tablet,extended [id number] (Loratadine-D) 1 tab PO DAILY 08/25/13 ipydaclx-yqd-edztf acid 0.4 mg-lycopene 300 mcg-lutein 250 mcg tablet (Centrum Silver) 1 ea PO DAILY 08/25/13 amiodarone 200 mg tablet 200 mg PO BID #60 tabs 01/08/25 aspirin 81 mg tablet,delayed release 81 mg PO BREAKFAST #30 tabs 01/08/25 carvedilol 3.125 mg tablet 3.125 mg PO BIDCM #60 tabs 01/08/25 empagliflozin 10 mg tablet (Jardiance) 10 mg PO DAILY #60 tabs 01/08/25 lisinopril 2.5 mg tablet 2.5 mg PO DAILY #30 tabs 01/08/25 potassium, sodium phosphates 280 mg-160 mg-250 mg oral powder packet 1 packet PO BID 30 days #60 ea 01/08/25 spironolactone 25 mg tablet 12.5 mg (1/2 x 25 mg) PO DAILY 30 days #15 tabs 01/08/25
[2025-01-08] MEDS: 0.9% Saline Lock 10 ML Syringe IV (13:14)
[2025-01-08] MEDS: Fluticasone 0.05% 1 SPRAY NASAL.SRY 2 SPRAY NASAL (20:47)
[2025-01-08] MEDS: Loratadine 10 MG Tablet PO (20:47)
[2025-01-08] MEDS: Atorvastatin Calcium 20 MG Tablet NG (20:48)
[2025-01-08] MEDS: oxyCODONE 5 MG Tablet PO (20:49)
[2025-01-09 03:14] VITALS: BMI 42.5
[2025-01-09] MEDS: Ampicillin/Sulbactam 3 GM in 0.9% Normal Saline (100mL MB+) 100 ML IV (05:39)
[2025-01-09 06:00] VITALS: BP 165/68; PULSE 93; RESP 18; TEMP 36.6; O2SAT 96
[2025-01-09 06:26] LABS: Anion Gap 10 (5-15); BUN 15 mg/dL (4-19); BUN/Creat Ratio 17.5 RATIO (10-20); Calcium,Total 8.4 mg/dL (7.6-11.0); Carbon Dioxide 21.5 mmol/L (21.0-32.0); Chloride 108 mmol/L (98-108); Creatinine, Serum 0.83 mg/dL (0.70-1.20); EST Glomerular Filtration Rate 102 (>60); Estimated Creatinine Clearance 129.33 ml/min (50-250); Glucose 91 mg/dL (70-99); Potassium 3.8 mmol/L (3.3-5.1); Sodium Level 140 mmol/L (133-145)
[2025-01-09 06:28] LABS: Absolute Lymphocyte Count 1.58 X10^3/uL (0.83-4.51); Absolute Neutrophil Count 5.4 X10^3/uL (2.0-7.7); Basophil# 0.08 X10^3/uL; Basophil% 0.9 % (0-1); Eosinophil# 0.55 X10^3/uL; Eosinophils% 6.2 % (0-5); Hematocrit 33.5 % (40-54); Hemoglobin 10.7 g/dL (13.0-16.5); Lymphocyte # 1.58 X10^3/ul (0.83-4.51); Lymphocyte % 17.9 % (19-41); Mean Corp Hgb Conc 31.9 g/dL (32-36); Mean Corpuscular Hgb 25.2 pg (27.0-32.0); Mean Corpuscular Volume 78.8 fL (80-94); Mean Platelet Vol. 9.9 fl (6.2-12.0); Monocyte# 1.17 X10^3/uL; Monocyte% 13.3 % (0-10); NRBC Flagged by Analyzer 0.2 % (0-5); Neutrophil # 5.39 X10^3/uL (2.7-7.7); Platelet Count 198 K/mm3 (150-450); RBC Distribution Width CV 16.7 % (11.6-14.6); RBC Distribution Width SD 47.6 fl (35.1-43.9); Red Blood Count 4.25 M/mm3 (4.6-6.2); White Blood Count 8.8 K/mm3 (4.4-11.0)
[2025-01-09] MEDS: Ipratropium/Albuterol Sulfate 3 ML AMPUL.NEB INHALATION (07:26)
--- NOTE | 2025-01-09 07:41 | PCM.PN.HOSP ---
Reason for Visit Reason for Visit: Diagnoses Sepsis, unspecified organism (01/04/25) Atherosclerotic heart disease of [place] coronary artery without angina pectoris (01/04/25) Cardiac arrest, cause unspecified (01/04/25) Ventricular fibrillation (01/04/25) Other ill-defined heart diseases (01/04/25) Pneumonitis due to inhalation of food and vomit (01/04/25) Acute respiratory failure with hypoxia (01/04/25) Acute respiratory failure with hypercapnia (01/04/25) Shock, unspecified (01/04/25) Subjective Subjective Late entry note for 01/08/2025 Patient was supposed to have been transferred to [facility]. Bed was however not obtained necessitating patient staying for 1 more night. Objective Data Objective Data Vital Signs: Vital Signs Temp Pulse Resp BP Pulse Ox O2 Del Method O2 Flow Rate 98.6 F 108 H 18 134/78 H 96 Nasal Cannula 2 01/08/25 14:24 01/08/25 14:24 01/08/25 14:24 01/08/25 14:24 01/08/25 14:24 01/09/25 03:14 01/09/25 03:14 FiO2 35 01/06/25 09:00 Oxygen Flow Rate (L/min) 2 Oxygen Delivery Method Nasal Cannula Weight: 130.2 kg Body Mass Index (BMI) 42.5 Intake & Output: Intake and Output for Last 24 Hours 01/07/25 01/08/25 01/09/25 23:59 23:59 23:59 Intake Total 1312.3333 / 1312.3333 826 / 826 112 / 112 Output Total 1000 / 1000 Balance 312.3333 / 312.3333 826 / 826 112 / 112 Lab / Micro Data 01/09/25 05:32 01/09/25 05:32 Labs: Laboratory Results - last 24 hr 01/09/25 05:32: WBC 8.8, RBC 4.25 L, Hgb 10.7 L, Hct 33.5 L, MCV 78.8 L, MCH 25.2 L, MCHC 31.9 L, RDW Std Deviation 47.6 H, RDW Coeff of Nash 16.7 H, Plt Count 198, MPV 9.9, Immature Gran % (Auto) 0.700, Neut % (Auto) 61.0, Lymph % (Auto) 17.9 L, Bartholomew % (Auto) 13.3 H, Eos % (Auto) 6.2 H, Baso % (Auto) 0.9, Absolute Neuts (auto) 5.4, Absolute Lymphs (auto) 1.58, Nucleated RBC % 0.2, Sodium 140, Potassium 3.8, Chloride 108, Carbon Dioxide 21.5, Anion Gap 10, BUN 15, Creatinine 0.83, Estim Creat Clear Calc 129.33, Est GFR (MDRD) Non-Af 102, BUN/Creatinine Ratio 17.5, Glucose 91, Calcium 8.4 Micro: Microbiology 01/04/25 07:34 Blood Culture (Wb) - Anticubital Left Blood Culture - Preliminary No growth in 48 hours. 01/04/25 05:47 Blood Culture (Wb) - Anticubital Right Blood Culture - Preliminary No growth in 48 hours. 01/04/25 06:18 Sputum, Induced/Lukens Gram Stain - Final 01/04/25 06:18 Sputum, Induced/Lukens Respiratory Culture - Final 01/05/25 10:20 Nasal Secretion MRSA (PCR) - Final 01/04/25 10:30 Interface Orders Gastric Occult Blood - Final Occult Blood Positive 01/04/25 06:03 Mucosa - Nose SARS-CoV-2, Influenza & RSV (PCR) - Final Physical Exam Narrative GENERAL: cooperative HEENT: Atraumatic; normocephalic EYES; Anicteric, Normal Conjunctiva NECK; supple, normal thyroid, RESPIRATORY: Diminished to auscultation CARDIOVASCULAR: Regular S1 S2, GI: soft, normoactive bowel sounds, : No Renal angle tenderness; EXTREMITIES: No edema, no clubbing, MUSCULOSKELETAL: no muscle wasting NEURO: Awake; no lateralizing signs. SKIN: No Rash PSYCH; Flat affect Assessment & Plan Assessment/Plan (1) Cardiac arrest with ventricular fibrillation: (2) Acute sepsis: (3) Shock circulatory: (4) Left ventricular systolic dysfunction (LVSD): (5) Coronary artery disease: PLAN: Plan Patient is a 59-year-old gentleman who was found unresponsive by the initiated CPR called the squad. Patient was found to be in ventricular fibrillation when the EMS squad arrived. Successfully resuscitated with ROSC and transferred to the intensive care unit patient was intubated in the ED underwent emergency left heart catheterization which was unremarkable. CT of the chest showed no pulmonary embolism. Admitted to the intensive care unit subsequently 1. Cardiac arrest ? Secondary to ventricular fibrillation. Patient was successfully resuscitated with ROSC; underwent left heart catheterization was found to have no significant angiographic coronary artery disease was however found to have severely depressed LV systolic function Severe LV systolic dysfunction with generalized hypokinesis. Estimated LVEF 20 to 25%. Stage I diastolic dysfunction.. Seen in consultation by cardiology placed on amiodarone ? 01/08/2025; Case was discussed with Dr. Pierce with cardiology the day prior recommended for patient to be transferred to a tertiary care center for assessment for possible for EP evaluation for possible AICD placement. Call was placed to [facility] Patient accepted for transfer 2. Acute hypoxic respiratory failure ? CT of the chest obtained demonstrated large confluent alveolar opacities within the posterior portions of the lungs. Differential possibility release includes, butnot limited to diffuse alveolar hemorrhage, large aspirations, large infectious or inflammatory process.patient was placed on empiric antibiotic intubated in the ED and subsequently weaned off the vent on 01/06/2025 3. Shock ? cardiogenic shock following patient ventricular fibrillation. Patient did receive pressors with norepinephrine as well as dopamine has since been weaned off 4. Hypertension ? Blood pressure was low on admission and did receive dopamine 5. Rib fractures ? Involving the right anterior 4th and 5th following CPR. Manage conservatively with pain meds and use of incentive spirometry encouraged 6.Hypophosphatemia ? Corrected per protocol repeat labs ordered in a.m. to assess response to therapy 7. Acute kidney injury ? Patient creatinine peaked at 1.41 currently down to 0.75 following aggressive IV fluid resuscitation 8. Dyslipidemia ?Patient is on statin therapy, continued at home dose 9. Allergic rhinitis ? Patient is on Claritin-D 10. Class III obesity with BMI of 42.4 ? Complicating care weight loss advised 13. DVT prophylaxis ? Subcu heparin Time spent in the patient's overall evaluation,decision-making process, review of diagnostic data, adjustment of management, discussion with other providers, nursing nursing and ancillary staff involved in patient's care documentation, 38 Minutes Charges/Coding Visit Charges Inpatient E&M: 74661 Subs Hosp L2
[2025-01-09 08:02] VITALS: BP 157/91; PULSE 86; RESP 16; TEMP 36.8; O2SAT 95
[2025-01-09] MEDS: Carvedilol 3.125 MG TABLET PO (08:06)
[2025-01-09] MEDS: Aspirin E.C. 81 MG Tablet PO (08:06)
[2025-01-09] MEDS: oxyCODONE 5 MG Tablet PO (08:21)
--- NOTE | 2025-01-09 08:26 | NURSING ---
report called to carola nurse @ [facility] regarding pt. and why he was being transferred. Tammie called and updated with bed number and pt's estimated time of departure.
== END 2025-01-09 08:35 | disposition short-term general hospital (02) | DRG 286 ==
LOC: ED 06:15 → ICU 09:33 → PCU 01-07 15:26
PROVIDERS: Internal Medicine Cardiovascular Disease; Internal Medicine Pulmonary Disease; Admitting Provider Internal Medicine; Emergency Provider Surgery; PCP Family Medicine; Visit Provider Internal Medicine
DX: I49.01 Ventricular fibrillation (principal); R57.0 Cardiogenic shock; J69.0 Pneumonitis due to inhalation of food and vomit; J96.02 Acute respiratory failure with hypercapnia; I50.21 Acute systolic (congestive) heart failure; J96.01 Acute respiratory failure with hypoxia; Z68.41 Body mass index [BMI] 40.0-44.9, adult; N17.9 Acute kidney failure, unspecified; M96.A3 Multiple fractures of ribs associated with chest compression and cardiopulmonary resuscitation; I11.0 Hypertensive heart disease with heart failure; E66.01 Morbid (severe) obesity due to excess calories; I46.2 Cardiac arrest due to underlying cardiac condition; I25.10 Atherosclerotic heart disease of native coronary artery without angina pectoris; E78.5 Hyperlipidemia, unspecified; J30.9 Allergic rhinitis, unspecified; E83.39 Other disorders of phosphorus metabolism; X58.XXXA Exposure to other specified factors, initial encounter; Y92.238 Other place in hospital as the place of occurrence of the external cause; E66.813 Obesity, class 3; Z79.82 Long term (current) use of aspirin; Z79.899 Other long term (current) drug therapy; Z82.49 Family history of ischemic heart disease and other diseases of the circulatory system
CPT/HCPCS: 31500; 31720; 36415; 36569; 36600; 51702; 70450; 71045; 71275; 80048; 80053; 80076; 80202; 81001; 82010; 82271; 82550; 82803; 82962; 83036; 83605; 83735; 83880; 84100; 84443; 84478; 84484; 85025; 85610; 85730; 87040; 87070; 87205; 87631; 87641; 93005; 93306; 93458; 94002; 94003; 94640; 94660; 94668; 97162; 97166; 97803; 99252; 99285; Q9957; Q9967; A4216; C1769; C1894; C8929; G0463; J0295

== ENCOUNTER → 2025-03-22 | Outpatient (CLI) | payer OTHER, SELFPAY | END | disposition home or self-care (01) | LOC: SL 19:54 | PROVIDERS: PCP Family Medicine; Referring Provider Internal Medicine Cardiovascular Disease; Visit Provider Internal Medicine Cardiovascular Disease | DX: I49.01 Ventricular fibrillation (principal); I42.8 Other cardiomyopathies; Z86.74 Personal history of sudden cardiac arrest | CPT/HCPCS: 95810 ==

== ENCOUNTER → 2025-03-26 | Outpatient (CLI) | payer OTHER, SELFPAY ==
--- NOTE | 2025-03-26 12:59 | ECHOL_ITS ---
Reason For Study Reason For Study: CARDIOMYOPATHY Procedure This was a limited 2D transthoracic echocardiogram. Myocardial strain analysis was performed in this exam to aid in the assessment of cardiac function. Exam performed in department. Left Ventricle Normal LV size. Mild concentric left ventricular hypertrophy. The global longitudinal strain = -16.9% (borderline). The LV ejection fraction is 55 %. Stage 1 diastolic dysfunction. Right Ventricle Normal RV size. Normal systolic function. Atria The left and right atria are normal. Mitral Valve The mitral valve is structurally normal. No prolapse or stenosis seen. Tricuspid Valve Normal tricuspid valve. Aortic Valve Normal aortic valve. Pulmonic Valve The pulmonic valve is not well visualized. Great Vessels Normal aortic root. Pericardium/Pleural No pericardial effusion. MMode/2D Measurements & Calculations LVIDd: 5.1 cm IVSd: 1.3 cm LAV(MOD- bp): 29.8 ml LVIDs: 3.3 cm LVPWd: 1.2 cm LAV(MOD- bp) Indexed: 12.8 ml/m2 RVDd: 3.0 cm FS: 35.4 % LAV(MOD- sp2): 30.9 ml LAV(MOD- sp4): 27.3 ml SV(MOD- sp4): 43.0 ml LVAd ap4: 28.2 cm2 LVAd ap2: 22.9 cm2 LVLd ap4: 7.8 cm LVLd ap2: 7.5 cm SI(MOD- sp4): 18.5 ml/m2 EDV(MOD-sp4): 84.0 ml EDV(MOD-sp2): 59.4 ml EDV(sp4-el): 86.7 ml EDV(sp2-el): 59.6 ml LVAs ap4: 18.8 cm2 LVAs ap2: 15.0 cm2 LVLs ap4: 7.1 cm LVLs ap2: 6.6 cm ESV(MOD-sp4): 41.0 ml ESV(MOD-sp2): 28.7 ml ESV(sp4-el): 42.4 ml ESV(sp2-el): 29.0 ml EF(MOD-sp4): 51.2 % EF(MOD-sp2): 51.7 % EF(sp4-el): 51.1 % SV(MOD-sp2): 30.7 ml SV(sp4-el): 44.3 ml Ao sinus diam: 3.7 cm SI(MOD-sp2): 13.2 ml/m2 LA dimension(2D): 3.4 cm LA A4 area: 12.6 cm2 RA A4 area: 10.5 cm2 TAPSE: 2.0 cm Doppler Measurements & Calculations Lat Peak E' [place]: 12.0 cm/sec Med Peak E' [place]: 10.6 cm/sec ECHO/Echo, Limited Study Interpretation Summary The LV ejection fraction is 55 %. Stage 1 diastolic dysfunction. Compared to previous echo, the LV function has improved. Ordering Physician: Morro Tay Referring Physician: Wing Calderón Performed By: Ursula Banks RDCS and Student
== END | disposition home or self-care (01) ==
LOC: CVS 12:57
PROVIDERS: PCP Family Medicine; Referring Provider Internal Medicine Cardiovascular Disease; Visit Provider Internal Medicine Cardiovascular Disease
DX: I42.8 Other cardiomyopathies (principal)
CPT/HCPCS: 93308